=== PATIENT | female | born 1940 | race Caucasian/White ===

== ENCOUNTER 2017-06-10 10:44 | Inpatient (IN) ==
[2017-06-10] MEDS ORDERED: ALBUTEROL/IPRATROPIUM 3 ML NEB RESP TX PRN (11:25)
[2017-06-10] MEDS: ALBUTEROL/IPRATROPIUM 3 ML NEB RESP TX SCH ×2 (13:58→20:52)
[2017-06-10] MEDS: DEXTROSE 5% NACL 0.45% 1,000 ML IV SCH (14:30)
[2017-06-10] MEDS: SODIUM CHLORIDE 0.9% 1,000 ML IV SCH ×3 (14:56→23:00)
[2017-06-10] MEDS ORDERED: LEVOFLOXACIN INJ 500 MG in PREMIX 1 EACH IV SCH (15:00)
[2017-06-10 15:32] LABS: Albumin 3.2 G/DL (3.4-5.0); Bilirubin,Total 1.4 MG/DL (0.2-1.0); Calcium 9.1 MG/DL (8.5-10.1); Osmolality,Calculated 285.5 MOS/KG (273-304); Potassium 4.6 MMOL/L (3.5-5.1); Total Protein 5.4 G/DL (6.4-8.3)
[2017-06-10] MEDS: CLINDAMYCIN INJ 300 MG in PREMIX 1 EACH IV SCH ×2 (17:56→23:54)
[2017-06-10] MEDS: GABAPENTIN 400 MG CAPSULE PO SCH (21:43)
[2017-06-10] MEDS: MONTELUKAST 10 MG TABLET PO SCH (21:44)
[2017-06-10] MEDS: ACETAMINOPHEN 325 MG TABLET PO PRN (21:44)
[2017-06-10] MEDS: ALLOPURINOL 100 MG TABLET PO SCH (21:45)
[2017-06-10] MEDS: PANTOPRAZOLE 40 MG TABLET PO SCH (21:45)
[2017-06-10] MEDS: HYDROXYCHLOROQUINE 200 MG TABLET PO SCH (21:45)
[2017-06-11] MEDS: ALBUTEROL/IPRATROPIUM 3 ML NEB RESP TX SCH ×4 (01:27→20:49)
[2017-06-11] MEDS: DEXTROSE 5% NACL 0.45% 1,000 ML IV SCH ×2 (06:25→20:47)
[2017-06-11] MEDS: SODIUM CHLORIDE 0.9% 1,000 ML IV SCH ×4 (06:26→19:24)
[2017-06-11 06:51] LABS: Basophils # 0.1 10*3/uL (0.0-0.2); Basophils % 0.2 % (0.0-0.8); Eosinophils # 0.1 10*3/uL (0.0-0.87); Eosinophils % 0.5 % (0.00-10.9); Hematocrit 31.5 VOL% (35.7-47.0); Hemoglobin 10.2 GM/DL (12.0-16.0); Immature Granulocytes Absolute 0.55 #; Lymphocytes % 7.3 % (21.3-54.2); Mean Corpuscular HGB Conc 32.4 GM/DL (32-36); Mean Corpuscular Hemoglobin 30 PG (27-34); Mean Corpuscular Volume 93.8 FL (87-102); Mean Platelet Volume 10.1 FL (9.6-12.0); Monocytes # 1.8 10*3/uL (0.11-0.8); Monocytes % 6.6 % (1.7-12.7); Neutrophils # 22.9 10*3/uL (1.4-7.4); Neutrophils % 83.4 % (38.7-73.9); Platelet Count 184 T/CUMM (130-400); Red Blood Count 3.36 MC/CUMM (3.8-5.5); Red Cell Distribution Width 13.9 % (9.3-17.3); White Blood Count 27.5 T/CUMM (4-12)
[2017-06-11 07:21] LABS: Calcium 7.8 MG/DL (8.5-10.1); Magnesium 1.6 MG/DL (1.8-2.4)
[2017-06-11 08:39] LABS: Band Neutrophils 7 % (0-10); Hypochromasia Slight; Lymphocytes 8 % (20-55); Platelet Estimate Adequate; Segmented Neutrophils 80 % (50-85); Total Cells Counted 100
[2017-06-11] MEDS: MAGNESIUM CHLORIDE 64 MG TABLET PO SCH (08:48)
[2017-06-11] MEDS: GABAPENTIN 400 MG CAPSULE PO SCH ×2 (08:49→20:48)
[2017-06-11] MEDS: HYDROXYCHLOROQUINE 200 MG TABLET PO SCH ×2 (08:49→20:51)
[2017-06-11] MEDS: OXYBUTYNIN XL 10 MG TABLET PO SCH (08:49)
[2017-06-11] MEDS: hydroCHLOROthiazide 25 MG TABLET PO SCH (08:49)
[2017-06-11] MEDS: MELOXICAM 7.5 MG TABLET PO SCH (08:49)
[2017-06-11] MEDS: POTASSIUM CHLORIDE 10 MEQ TABLET PO SCH (08:49)
[2017-06-11] MEDS: MULTIVITAMIN (CENTRUM) TABLET PO SCH (08:49)
[2017-06-11] MEDS: ASPIRIN EC 81 MG TABLET PO SCH (08:49)
[2017-06-11] MEDS: CALCIUM (CARBONATE)/VITAMIN D 600 MG-400 UNIT TABLET PO SCH (08:49)
[2017-06-11] MEDS: ASCORBIC ACID 500 MG TABLET PO SCH (08:49)
[2017-06-11] MEDS: ALLOPURINOL 100 MG TABLET PO SCH ×2 (08:49→20:49)
[2017-06-11] MEDS: PANTOPRAZOLE 40 MG TABLET PO SCH ×2 (08:49→20:48)
[2017-06-11] MEDS: amLODIPine 5 MG TABLET PO SCH (08:49)
[2017-06-11] MEDS: CLINDAMYCIN INJ 300 MG in PREMIX 1 EACH IV SCH ×2 (08:53→17:03)
[2017-06-11] MEDS: GLUCOSAMINE 500 MG TABLET PO SCH (08:53)
[2017-06-11] MEDS ORDERED: NON-FORMULARY MEDICATION (Cyanocobalamin (Vitamin B-12) [B-12] 2,500 MCG) SL SCH (09:00)
[2017-06-11] MEDS: LEVOTHYROXINE 112 MCG TABLET PO SCH (17:03)
[2017-06-11] MEDS: LEVOFLOXACIN INJ 250 MG in PREMIX 1 EACH IV SCH (18:33)
[2017-06-11] MEDS: MONTELUKAST 10 MG TABLET PO SCH (20:48)
[2017-06-11] MEDS: ACETAMINOPHEN 325 MG TABLET PO PRN (21:56)
[2017-06-12] MEDS: CLINDAMYCIN INJ 300 MG in PREMIX 1 EACH IV SCH ×3 (00:46→17:01)
[2017-06-12] MEDS: SODIUM CHLORIDE 0.9% 1,000 ML IV SCH ×5 (01:17→17:33)
[2017-06-12] MEDS: ALBUTEROL/IPRATROPIUM 3 ML NEB RESP TX SCH ×4 (02:26→19:45)
[2017-06-12 05:08] LABS: Basophils % 0.1 % (0.0-0.8); Eosinophils # 0.2 10*3/uL (0.0-0.87); Eosinophils % 1.2 % (0.00-10.9); Hematocrit 30.5 VOL% (35.7-47.0); Hemoglobin 10.3 GM/DL (12.0-16.0); Immature Granulocytes % 0.7 %; Immature Granulocytes Absolute 0.13 #; Lymphocytes # 1.9 10*3/uL (1.4-4.0); Lymphocytes % 10.8 % (21.3-54.2); Mean Corpuscular HGB Conc 33.8 GM/DL (32-36); Mean Corpuscular Hemoglobin 31 PG (27-34); Mean Corpuscular Volume 91.6 FL (87-102); Mean Platelet Volume 10.5 FL (9.6-12.0); Monocytes # 1.4 10*3/uL (0.11-0.8); Monocytes % 7.6 % (1.7-12.7); Neutrophils # 14.1 10*3/uL (1.4-7.4); Neutrophils % 79.6 % (38.7-73.9); Platelet Count 160 T/CUMM (130-400); Red Blood Count 3.33 MC/CUMM (3.8-5.5); White Blood Count 17.7 T/CUMM (4-12)
[2017-06-12 05:35] LABS: Calcium 8.1 MG/DL (8.5-10.1); Magnesium 1.4 MG/DL (1.8-2.4); Osmolality,Calculated 266.7 MOS/KG (273-304)
[2017-06-12] MEDS: PANTOPRAZOLE 40 MG TABLET PO SCH ×2 (10:13→21:27)
[2017-06-12] MEDS: MAGNESIUM CHLORIDE 64 MG TABLET PO SCH ×2 (10:13→21:28)
[2017-06-12] MEDS: GLUCOSAMINE 500 MG TABLET PO SCH (10:13)
[2017-06-12] MEDS: ASPIRIN EC 81 MG TABLET PO SCH (10:13)
[2017-06-12] MEDS: hydroCHLOROthiazide 25 MG TABLET PO SCH (10:13)
[2017-06-12] MEDS: ALLOPURINOL 100 MG TABLET PO SCH ×2 (10:13→21:28)
[2017-06-12] MEDS: CALCIUM (CARBONATE)/VITAMIN D 600 MG-400 UNIT TABLET PO SCH (10:14)
[2017-06-12] MEDS: ASCORBIC ACID 500 MG TABLET PO SCH (10:14)
[2017-06-12] MEDS: OXYBUTYNIN XL 10 MG TABLET PO SCH (10:14)
[2017-06-12] MEDS: MELOXICAM 7.5 MG TABLET PO SCH (10:14)
[2017-06-12] MEDS: HYDROXYCHLOROQUINE 200 MG TABLET PO SCH ×2 (10:14→21:27)
[2017-06-12] MEDS: GABAPENTIN 400 MG CAPSULE PO SCH ×2 (10:14→21:27)
[2017-06-12] MEDS: MULTIVITAMIN (CENTRUM) TABLET PO SCH (10:14)
[2017-06-12] MEDS: POTASSIUM CHLORIDE 10 MEQ TABLET PO SCH (10:14)
[2017-06-12] MEDS: amLODIPine 5 MG TABLET PO SCH (10:15)
[2017-06-12] MEDS: CLOTRIMAZOLE 10 MG TROCHE PO SCH ×3 (13:07→21:31)
[2017-06-12] MEDS: FLUCONAZOLE 200 MG TABLET PO SCH (13:07)
[2017-06-12] MEDS: LEVOTHYROXINE 112 MCG TABLET PO SCH (17:02)
[2017-06-12] MEDS: DEXTROSE 5% NACL 0.45% 1,000 ML IV SCH (17:33)
[2017-06-12] MEDS: LEVOFLOXACIN INJ 250 MG in PREMIX 1 EACH IV SCH (18:18)
[2017-06-12] MEDS: DOCUSATE SODIUM 100 MG CAPSULE PO PRN (21:27)
[2017-06-12] MEDS: MONTELUKAST 10 MG TABLET PO SCH (21:28)
[2017-06-13] MEDS: CLINDAMYCIN INJ 300 MG in PREMIX 1 EACH IV SCH ×4 (00:12→23:56)
[2017-06-13] MEDS: ALBUTEROL/IPRATROPIUM 3 ML NEB RESP TX SCH ×3 (00:49→14:24)
[2017-06-13] MEDS: CLOTRIMAZOLE 10 MG TROCHE PO SCH ×5 (05:23→21:36)
[2017-06-13] MEDS: CALCIUM (CARBONATE)/VITAMIN D 600 MG-400 UNIT TABLET PO SCH (10:18)
[2017-06-13] MEDS: POTASSIUM CHLORIDE 10 MEQ TABLET PO SCH (10:18)
[2017-06-13] MEDS: MELOXICAM 7.5 MG TABLET PO SCH (10:18)
[2017-06-13] MEDS: MAGNESIUM CHLORIDE 64 MG TABLET PO SCH ×2 (10:18→21:37)
[2017-06-13] MEDS: GABAPENTIN 400 MG CAPSULE PO SCH ×2 (10:19→21:38)
[2017-06-13] MEDS: ASCORBIC ACID 500 MG TABLET PO SCH (10:19)
[2017-06-13] MEDS: HYDROXYCHLOROQUINE 200 MG TABLET PO SCH ×2 (10:19→21:36)
[2017-06-13] MEDS: MULTIVITAMIN (CENTRUM) TABLET PO SCH (10:19)
[2017-06-13] MEDS: ASPIRIN EC 81 MG TABLET PO SCH (10:19)
[2017-06-13] MEDS: hydroCHLOROthiazide 25 MG TABLET PO SCH (10:19)
[2017-06-13] MEDS: OXYBUTYNIN XL 10 MG TABLET PO SCH (10:19)
[2017-06-13] MEDS: PANTOPRAZOLE 40 MG TABLET PO SCH ×2 (10:19→21:37)
[2017-06-13] MEDS: DOCUSATE SODIUM 100 MG CAPSULE PO PRN ×2 (10:20→21:39)
[2017-06-13] MEDS: ALLOPURINOL 100 MG TABLET PO SCH ×2 (10:20→21:37)
[2017-06-13] MEDS: FLUCONAZOLE 200 MG TABLET PO SCH (10:20)
[2017-06-13] MEDS: GLUCOSAMINE 500 MG TABLET PO SCH (10:20)
[2017-06-13] MEDS: amLODIPine 5 MG TABLET PO SCH (10:21)
[2017-06-13] MEDS: CLORAZEPATE 3.75 MG TABLET PO SCH ×2 (15:31→21:36)
[2017-06-13] MEDS: DILTIAZEM 90 MG TABLET PO SCH ×2 (15:32→23:55)
[2017-06-13] MEDS: LEVOTHYROXINE 112 MCG TABLET PO SCH (15:32)
[2017-06-13] MEDS ORDERED: IPRATROPIUM 500 MCG/2.5 ML NEB RESP TX PRN (15:40)
[2017-06-13] MEDS ORDERED: ENOXAPARIN 40 MG/0.4 ML SYRINGE SUBCUT SCH (16:00)
[2017-06-13] MEDS: LEVOFLOXACIN INJ 250 MG in PREMIX 1 EACH IV SCH (18:27)
[2017-06-13] MEDS ORDERED: IPRATROPIUM 500 MCG/2.5 ML NEB RESP TX SCH (19:00)
[2017-06-13] MEDS: DORNASE ALFA 2.5 MG/2.5 ML VIAL RESP TX SCH (19:17)
[2017-06-13] MEDS: MONTELUKAST 10 MG TABLET PO SCH (21:37)
[2017-06-13] MEDS ORDERED: MAGNESIUM SULF RIDER 2 GM in PREMIX 1 EACH IV ONE (22:28)
[2017-06-14 05:58] LABS: Basophils % 0.5 % (0.0-0.8); Eosinophils # 0.4 10*3/uL (0.0-0.87); Eosinophils % 4.1 % (0.00-10.9); Hemoglobin 10.7 GM/DL (12.0-16.0); Immature Granulocytes % 0.6 %; Immature Granulocytes Absolute 0.05 #; Lymphocytes # 1.9 10*3/uL (1.4-4.0); Lymphocytes % 21.7 % (21.3-54.2); Mean Corpuscular HGB Conc 33.4 GM/DL (32-36); Mean Corpuscular Hemoglobin 30 PG (27-34); Mean Corpuscular Volume 90.4 FL (87-102); Mean Platelet Volume 10.4 FL (9.6-12.0); Monocytes # 1.1 10*3/uL (0.11-0.8); Monocytes % 12.8 % (1.7-12.7); Neutrophils # 5.1 10*3/uL (1.4-7.4); Neutrophils % 60.3 % (38.7-73.9); Platelet Count 212 T/CUMM (130-400); Red Blood Count 3.54 MC/CUMM (3.8-5.5); Red Cell Distribution Width 13.2 % (9.3-17.3); White Blood Count 8.5 T/CUMM (4-12)
[2017-06-14] MEDS: CLOTRIMAZOLE 10 MG TROCHE PO SCH ×5 (06:07→22:25)
[2017-06-14 06:25] LABS: Calcium 8.4 MG/DL (8.5-10.1); Magnesium 1.9 MG/DL (1.8-2.4); Osmolality,Calculated 259.9 MOS/KG (273-304)
[2017-06-14] MEDS: ASCORBIC ACID 500 MG TABLET PO SCH ×2 (09:22→20:49)
[2017-06-14] MEDS: CLORAZEPATE 3.75 MG TABLET PO SCH ×3 (09:23→20:48)
[2017-06-14] MEDS: DOCUSATE SODIUM 100 MG CAPSULE PO PRN (09:23)
[2017-06-14] MEDS: OXYBUTYNIN XL 10 MG TABLET PO SCH (09:23)
[2017-06-14] MEDS: ALLOPURINOL 100 MG TABLET PO SCH ×2 (09:23→20:49)
[2017-06-14] MEDS: GLUCOSAMINE 500 MG TABLET PO SCH (09:23)
[2017-06-14] MEDS: ASPIRIN EC 81 MG TABLET PO SCH (09:23)
[2017-06-14] MEDS: CALCIUM (CARBONATE)/VITAMIN D 600 MG-400 UNIT TABLET PO SCH (09:23)
[2017-06-14] MEDS: MAGNESIUM CHLORIDE 64 MG TABLET PO SCH ×2 (09:23→20:48)
[2017-06-14] MEDS: HYDROXYCHLOROQUINE 200 MG TABLET PO SCH ×2 (09:24→20:48)
[2017-06-14] MEDS: DILTIAZEM 90 MG TABLET PO SCH ×3 (09:24→23:44)
[2017-06-14] MEDS: MELOXICAM 7.5 MG TABLET PO SCH (09:24)
[2017-06-14] MEDS: MULTIVITAMIN (CENTRUM) TABLET PO SCH (09:24)
[2017-06-14] MEDS: GABAPENTIN 400 MG CAPSULE PO SCH ×2 (09:24→20:48)
[2017-06-14] MEDS: CLINDAMYCIN INJ 300 MG in PREMIX 1 EACH IV SCH ×3 (09:25→23:44)
[2017-06-14] MEDS: FLUCONAZOLE 200 MG TABLET PO SCH (09:25)
[2017-06-14] MEDS: amLODIPine 5 MG TABLET PO SCH (09:25)
[2017-06-14] MEDS: POTASSIUM CHLORIDE 10 MEQ TABLET PO SCH (09:25)
[2017-06-14] MEDS: PANTOPRAZOLE 40 MG TABLET PO SCH ×2 (09:25→20:49)
[2017-06-14] MEDS: hydroCHLOROthiazide 25 MG TABLET PO SCH (09:25)
[2017-06-14] MEDS: APIXABAN 5 MG TABLET PO SCH ×2 (11:03→20:49)
[2017-06-14] MEDS: DORNASE ALFA 2.5 MG/2.5 ML VIAL RESP TX SCH ×2 (12:24→19:50)
[2017-06-14] MEDS: LEVOTHYROXINE 112 MCG TABLET PO SCH (16:42)
[2017-06-14] MEDS: LEVOFLOXACIN INJ 250 MG in PREMIX 1 EACH IV SCH (17:56)
[2017-06-14] MEDS: MONTELUKAST 10 MG TABLET PO SCH (20:48)
[2017-06-15] MEDS: CLOTRIMAZOLE 10 MG TROCHE PO SCH ×5 (06:27→21:16)
[2017-06-15 06:51] LABS: Basophils % 0.4 % (0.0-0.8); Eosinophils # 0.3 10*3/uL (0.0-0.87); Eosinophils % 4.3 % (0.00-10.9); Hematocrit 31.9 VOL% (35.7-47.0); Hemoglobin 10.9 GM/DL (12.0-16.0); Immature Granulocytes % 0.6 %; Immature Granulocytes Absolute 0.04 #; Lymphocytes # 1.9 10*3/uL (1.4-4.0); Lymphocytes % 26.8 % (21.3-54.2); Mean Corpuscular HGB Conc 34.2 GM/DL (32-36); Mean Corpuscular Hemoglobin 30 PG (27-34); Mean Corpuscular Volume 87.9 FL (87-102); Mean Platelet Volume 9.9 FL (9.6-12.0); Monocytes % 13.4 % (1.7-12.7); Neutrophils # 3.9 10*3/uL (1.4-7.4); Neutrophils % 54.5 % (38.7-73.9); Platelet Count 216 T/CUMM (130-400); Red Blood Count 3.63 MC/CUMM (3.8-5.5); Red Cell Distribution Width 13.2 % (9.3-17.3); White Blood Count 7.2 T/CUMM (4-12)
[2017-06-15 07:27] LABS: Calcium 8.9 MG/DL (8.5-10.1); Magnesium 1.4 MG/DL (1.8-2.4); Osmolality,Calculated 253.6 MOS/KG (273-304); Potassium 5.1 MMOL/L (3.5-5.1)
[2017-06-15] MEDS: DORNASE ALFA 2.5 MG/2.5 ML VIAL RESP TX SCH ×2 (08:21→19:30)
[2017-06-15] MEDS: ALLOPURINOL 100 MG TABLET PO SCH ×2 (08:45→21:11)
[2017-06-15] MEDS: GABAPENTIN 400 MG CAPSULE PO SCH ×2 (08:45→21:11)
[2017-06-15] MEDS: CALCIUM (CARBONATE)/VITAMIN D 600 MG-400 UNIT TABLET PO SCH (08:45)
[2017-06-15] MEDS: CLORAZEPATE 3.75 MG TABLET PO SCH (08:45)
[2017-06-15] MEDS: MELOXICAM 7.5 MG TABLET PO SCH (08:45)
[2017-06-15] MEDS: hydroCHLOROthiazide 25 MG TABLET PO SCH (08:45)
[2017-06-15] MEDS: OXYBUTYNIN XL 10 MG TABLET PO SCH (08:45)
[2017-06-15] MEDS: MAGNESIUM CHLORIDE 64 MG TABLET PO SCH ×2 (08:45→21:11)
[2017-06-15] MEDS: MULTIVITAMIN (CENTRUM) TABLET PO SCH (08:46)
[2017-06-15] MEDS: GLUCOSAMINE 500 MG TABLET PO SCH (08:46)
[2017-06-15] MEDS: DILTIAZEM CD 180 MG CAPSULE PO SCH (08:46)
[2017-06-15] MEDS: PANTOPRAZOLE 40 MG TABLET PO SCH ×2 (08:46→21:11)
[2017-06-15] MEDS: HYDROXYCHLOROQUINE 200 MG TABLET PO SCH ×2 (08:46→21:10)
[2017-06-15] MEDS: APIXABAN 5 MG TABLET PO SCH ×2 (08:46→21:11)
[2017-06-15] MEDS: ASPIRIN EC 81 MG TABLET PO SCH (08:46)
[2017-06-15] MEDS: POTASSIUM CHLORIDE 10 MEQ TABLET PO SCH (08:46)
[2017-06-15] MEDS: FLUCONAZOLE 200 MG TABLET PO SCH (08:46)
[2017-06-15] MEDS: amLODIPine 5 MG TABLET PO SCH (08:46)
[2017-06-15] MEDS: ASCORBIC ACID 500 MG TABLET PO SCH ×2 (08:47→21:10)
[2017-06-15] MEDS: CLINDAMYCIN INJ 300 MG in PREMIX 1 EACH IV SCH ×2 (08:50→17:35)
[2017-06-15] MEDS ORDERED: DILTIAZEM CD 120 MG CAPSULE PO SCH (09:00)
[2017-06-15] MEDS ORDERED: CLORAZEPATE 3.75 MG TABLET PO PRN (13:58)
[2017-06-15] MEDS: LEVOTHYROXINE 112 MCG TABLET PO SCH (17:35)
[2017-06-15] MEDS: LEVOFLOXACIN INJ 250 MG in PREMIX 1 EACH IV SCH (17:36)
[2017-06-15] MEDS: MONTELUKAST 10 MG TABLET PO SCH (21:10)
[2017-06-16] MEDS: CLINDAMYCIN INJ 300 MG in PREMIX 1 EACH IV SCH ×3 (00:26→15:51)
[2017-06-16] MEDS ORDERED: COSYNTROPIN 0.25 MG VIAL IM ONE (04:00)
[2017-06-16] MEDS: CLOTRIMAZOLE 10 MG TROCHE PO SCH ×5 (06:01→22:19)
[2017-06-16] MEDS: DILTIAZEM CD 180 MG CAPSULE PO SCH ×2 (06:03→09:25)
[2017-06-16] MEDS: DORNASE ALFA 2.5 MG/2.5 ML VIAL RESP TX SCH ×2 (07:21→20:01)
[2017-06-16 08:25] LABS: Basophils # 0.1 10*3/uL (0.0-0.2); Basophils % 0.7 % (0.0-0.8); Eosinophils # 0.3 10*3/uL (0.0-0.87); Hematocrit 39.7 VOL% (35.7-47.0); Immature Granulocytes % 0.7 %; Immature Granulocytes Absolute 0.05 #; Lymphocytes # 1.7 10*3/uL (1.4-4.0); Lymphocytes % 25.5 % (21.3-54.2); Mean Corpuscular Hemoglobin 31 PG (27-34); Mean Corpuscular Volume 89.6 FL (87-102); Mean Platelet Volume 10.1 FL (9.6-12.0); Monocytes # 0.7 10*3/uL (0.11-0.8); Monocytes % 9.6 % (1.7-12.7); Neutrophils % 58.5 % (38.7-73.9); Red Cell Distribution Width 12.9 % (9.3-17.3); White Blood Count 6.8 T/CUMM (4-12)
[2017-06-16] MEDS: MAGNESIUM SULF RIDER 2 GM in PREMIX 1 EACH IV PRN (08:29)
[2017-06-16 08:36] LABS: Red Blood Count 4.43 MC/CUMM (3.8-5.5)
[2017-06-16 08:37] LABS: Hemoglobin 13.5 GM/DL (12.0-16.0); Platelet Count 279 T/CUMM (130-400)
[2017-06-16 09:04] LABS: Magnesium 1.3 MG/DL (1.8-2.4); Osmolality,Calculated 253.5 MOS/KG (273-304)
[2017-06-16] MEDS: GLUCOSAMINE 500 MG TABLET PO SCH (09:24)
[2017-06-16] MEDS: MULTIVITAMIN (CENTRUM) TABLET PO SCH (09:24)
[2017-06-16] MEDS: amLODIPine 5 MG TABLET PO SCH (09:24)
[2017-06-16] MEDS: CALCIUM (CARBONATE)/VITAMIN D 600 MG-400 UNIT TABLET PO SCH (09:24)
[2017-06-16] MEDS: FLUCONAZOLE 200 MG TABLET PO SCH (09:25)
[2017-06-16] MEDS: ASCORBIC ACID 500 MG TABLET PO SCH ×2 (09:25→20:44)
[2017-06-16] MEDS: ALLOPURINOL 100 MG TABLET PO SCH ×2 (09:25→20:44)
[2017-06-16] MEDS: GABAPENTIN 400 MG CAPSULE PO SCH ×2 (09:25→20:43)
[2017-06-16] MEDS: MELOXICAM 7.5 MG TABLET PO SCH (09:26)
[2017-06-16] MEDS: HYDROXYCHLOROQUINE 200 MG TABLET PO SCH ×2 (09:26→20:42)
[2017-06-16] MEDS: MAGNESIUM CHLORIDE 64 MG TABLET PO SCH ×2 (09:26→20:41)
[2017-06-16] MEDS: PANTOPRAZOLE 40 MG TABLET PO SCH ×2 (09:26→20:44)
[2017-06-16] MEDS: ASPIRIN EC 81 MG TABLET PO SCH (09:27)
[2017-06-16] MEDS: OXYBUTYNIN XL 10 MG TABLET PO SCH (09:27)
[2017-06-16] MEDS: APIXABAN 5 MG TABLET PO SCH ×2 (09:27→20:44)
[2017-06-16] MEDS: hydroCHLOROthiazide 25 MG TABLET PO SCH (09:28)
[2017-06-16] MEDS: POTASSIUM CHLORIDE 10 MEQ TABLET PO SCH (09:30)
[2017-06-16] MEDS: LEVOTHYROXINE 112 MCG TABLET PO SCH (15:50)
[2017-06-16] MEDS: LEVOFLOXACIN INJ 250 MG in PREMIX 1 EACH IV SCH (17:32)
[2017-06-16] MEDS: MONTELUKAST 10 MG TABLET PO SCH (20:41)
[2017-06-16] MEDS: DILTIAZEM CD 120 MG CAPSULE PO SCH (20:42)
[2017-06-17] MEDS: CLINDAMYCIN INJ 300 MG in PREMIX 1 EACH IV SCH ×3 (00:25→16:54)
[2017-06-17 05:31] LABS: Basophils % 0.5 % (0.0-0.8); Eosinophils # 0.3 10*3/uL (0.0-0.87); Hematocrit 33.3 VOL% (35.7-47.0); Hemoglobin 11.6 GM/DL (12.0-16.0); Immature Granulocytes % 0.5 %; Immature Granulocytes Absolute 0.03 #; Lymphocytes # 1.9 10*3/uL (1.4-4.0); Lymphocytes % 30.3 % (21.3-54.2); Mean Corpuscular HGB Conc 34.8 GM/DL (32-36); Mean Corpuscular Hemoglobin 30 PG (27-34); Mean Corpuscular Volume 87.4 FL (87-102); Mean Platelet Volume 9.7 FL (9.6-12.0); Monocytes # 0.8 10*3/uL (0.11-0.8); Monocytes % 12.9 % (1.7-12.7); Neutrophils # 3.2 10*3/uL (1.4-7.4); Neutrophils % 50.8 % (38.7-73.9); Platelet Count 294 T/CUMM (130-400); Red Blood Count 3.81 MC/CUMM (3.8-5.5); White Blood Count 6.4 T/CUMM (4-12)
[2017-06-17 05:51] LABS: Calcium 8.2 MG/DL (8.5-10.1); Magnesium 1.6 MG/DL (1.8-2.4); Osmolality,Calculated 260.1 MOS/KG (273-304); Potassium 4.6 MMOL/L (3.5-5.1)
[2017-06-17] MEDS: CLOTRIMAZOLE 10 MG TROCHE PO SCH (06:29)
[2017-06-17] MEDS: DORNASE ALFA 2.5 MG/2.5 ML VIAL RESP TX SCH ×2 (07:18→19:17)
[2017-06-17] MEDS: DILTIAZEM CD 120 MG CAPSULE PO SCH ×3 (07:41→20:50)
[2017-06-17] MEDS: PANTOPRAZOLE 40 MG TABLET PO SCH ×3 (07:41→20:50)
[2017-06-17] MEDS: GABAPENTIN 400 MG CAPSULE PO SCH ×2 (09:35→20:50)
[2017-06-17] MEDS: GLUCOSAMINE 500 MG TABLET PO SCH (09:36)
[2017-06-17] MEDS: MULTIVITAMIN (CENTRUM) TABLET PO SCH (09:36)
[2017-06-17] MEDS: MELOXICAM 7.5 MG TABLET PO SCH (09:36)
[2017-06-17] MEDS: APIXABAN 5 MG TABLET PO SCH ×2 (09:36→20:50)
[2017-06-17] MEDS: OXYBUTYNIN XL 10 MG TABLET PO SCH (09:37)
[2017-06-17] MEDS: HYDROXYCHLOROQUINE 200 MG TABLET PO SCH ×2 (09:37→20:49)
[2017-06-17] MEDS: ASCORBIC ACID 500 MG TABLET PO SCH ×2 (09:37→20:49)
[2017-06-17] MEDS: MAGNESIUM CHLORIDE 64 MG TABLET PO SCH ×2 (09:37→22:50)
[2017-06-17] MEDS: CALCIUM (CARBONATE)/VITAMIN D 600 MG-400 UNIT TABLET PO SCH (09:38)
[2017-06-17] MEDS: ASPIRIN EC 81 MG TABLET PO SCH (09:38)
[2017-06-17] MEDS: POTASSIUM CHLORIDE 10 MEQ TABLET PO SCH (09:39)
[2017-06-17] MEDS: amLODIPine 5 MG TABLET PO SCH (09:39)
[2017-06-17] MEDS: ALLOPURINOL 100 MG TABLET PO SCH ×2 (09:39→20:50)
[2017-06-17] MEDS: hydroCHLOROthiazide 25 MG TABLET PO SCH (09:40)
[2017-06-17] MEDS: FLUCONAZOLE 200 MG TABLET PO SCH (09:40)
[2017-06-17] MEDS: MAGNESIUM SULF RIDER 2 GM in PREMIX 1 EACH IV PRN (10:00)
[2017-06-17] MEDS ORDERED: ONDANSETRON 4 MG/2 ML VIAL ONE (12:30)
[2017-06-17] MEDS: ONDANSETRON 4 MG/2 ML VIAL IV PRN (12:36)
[2017-06-17] MEDS: LEVOTHYROXINE 112 MCG TABLET PO SCH (16:54)
[2017-06-17] MEDS: LEVOFLOXACIN INJ 250 MG in PREMIX 1 EACH IV SCH (17:38)
[2017-06-17] MEDS: MONTELUKAST 10 MG TABLET PO SCH (20:50)
[2017-06-18] MEDS: CLINDAMYCIN INJ 300 MG in PREMIX 1 EACH IV SCH ×3 (01:15→15:20)
[2017-06-18 05:26] LABS: Basophils % 0.2 % (0.0-0.8); Eosinophils # 0.2 10*3/uL (0.0-0.87); Eosinophils % 2.8 % (0.00-10.9); Hematocrit 31.4 VOL% (35.7-47.0); Hemoglobin 10.9 GM/DL (12.0-16.0); Immature Granulocytes % 0.5 %; Immature Granulocytes Absolute 0.04 #; Mean Corpuscular HGB Conc 34.7 GM/DL (32-36); Mean Corpuscular Hemoglobin 31 PG (27-34); Mean Platelet Volume 9.5 FL (9.6-12.0); Monocytes # 0.9 10*3/uL (0.11-0.8); Neutrophils % 61.5 % (38.7-73.9); Platelet Count 294 T/CUMM (130-400); Red Blood Count 3.53 MC/CUMM (3.8-5.5); Red Cell Distribution Width 13.2 % (9.3-17.3); White Blood Count 8.1 T/CUMM (4-12)
[2017-06-18 05:57] LABS: Calcium 7.9 MG/DL (8.5-10.1); Magnesium 2.1 MG/DL (1.8-2.4); Osmolality,Calculated 263.1 MOS/KG (273-304); Potassium 5.3 MMOL/L (3.5-5.1)
[2017-06-18] MEDS: DORNASE ALFA 2.5 MG/2.5 ML VIAL RESP TX SCH ×2 (07:41→19:16)
[2017-06-18] MEDS: GLUCOSAMINE 500 MG TABLET PO SCH (08:41)
[2017-06-18] MEDS: PANTOPRAZOLE 40 MG TABLET PO SCH ×2 (08:41→21:10)
[2017-06-18] MEDS: MELOXICAM 7.5 MG TABLET PO SCH (08:41)
[2017-06-18] MEDS: MAGNESIUM CHLORIDE 64 MG TABLET PO SCH (08:41)
[2017-06-18] MEDS: OXYBUTYNIN XL 10 MG TABLET PO SCH (08:41)
[2017-06-18] MEDS: GABAPENTIN 400 MG CAPSULE PO SCH ×2 (08:41→21:08)
[2017-06-18] MEDS: HYDROXYCHLOROQUINE 200 MG TABLET PO SCH ×2 (08:41→21:10)
[2017-06-18] MEDS: ALLOPURINOL 100 MG TABLET PO SCH ×2 (08:41→21:10)
[2017-06-18] MEDS: MULTIVITAMIN (CENTRUM) TABLET PO SCH (08:41)
[2017-06-18] MEDS: DILTIAZEM CD 120 MG CAPSULE PO SCH ×2 (08:41→21:09)
[2017-06-18] MEDS: CALCIUM (CARBONATE)/VITAMIN D 600 MG-400 UNIT TABLET PO SCH (08:41)
[2017-06-18] MEDS: POTASSIUM CHLORIDE 10 MEQ TABLET PO SCH (08:42)
[2017-06-18] MEDS: FLUCONAZOLE 200 MG TABLET PO SCH (08:42)
[2017-06-18] MEDS: hydroCHLOROthiazide 25 MG TABLET PO SCH (08:42)
[2017-06-18] MEDS: APIXABAN 5 MG TABLET PO SCH ×2 (08:42→21:10)
[2017-06-18] MEDS: amLODIPine 5 MG TABLET PO SCH (08:42)
[2017-06-18] MEDS: ASPIRIN EC 81 MG TABLET PO SCH (08:42)
[2017-06-18] MEDS: ASCORBIC ACID 500 MG TABLET PO SCH ×2 (08:42→21:10)
[2017-06-18] MEDS: ONDANSETRON 4 MG/2 ML VIAL IV PRN (14:25)
[2017-06-18] MEDS ORDERED: SODIUM PHOSPHATE ENEMA 133 ML BOTTLE RECTAL PRN (14:51)
[2017-06-18] MEDS ORDERED: LACTULOSE 20 GM/30 ML UDCUP PO PRN (17:19)
[2017-06-18] MEDS: LEVOFLOXACIN INJ 250 MG in PREMIX 1 EACH IV SCH (17:36)
[2017-06-18] MEDS: MONTELUKAST 10 MG TABLET PO SCH (21:09)
[2017-06-18] MEDS: MAGNESIUM OXIDE 400 MG TABLET PO SCH (21:13)
[2017-06-18] MEDS: LEVOTHYROXINE 112 MCG TABLET PO SCH (21:13)
[2017-06-18] MEDS ORDERED: BISACODYL 10 MG SUPP RECTAL PRN (23:13)
[2017-06-18] MEDS ORDERED: DEXTROSE 5% NACL 0.45% 1,000 ML IV SCH (23:30)
[2017-06-19] MEDS: CLINDAMYCIN INJ 300 MG in PREMIX 1 EACH IV SCH ×4 (00:15→23:38)
[2017-06-19] MEDS ORDERED: ONDANSETRON 4 MG/2 ML VIAL IV PRN (00:27)
[2017-06-19] MEDS: PROMETHAZINE 25 MG/1 ML VIAL IM PRN ×2 (01:44→08:18)
[2017-06-19] MEDS: DORNASE ALFA 2.5 MG/2.5 ML VIAL RESP TX SCH ×2 (07:43→19:46)
[2017-06-19] MEDS ORDERED: SODIUM PHOSPHATE ENEMA 133 ML BOTTLE RECTAL PRN (08:30)
[2017-06-19] MEDS: MULTIVITAMIN (CENTRUM) TABLET PO SCH (09:45)
[2017-06-19] MEDS: ASPIRIN EC 81 MG TABLET PO SCH (09:45)
[2017-06-19] MEDS: CALCIUM (CARBONATE)/VITAMIN D 600 MG-400 UNIT TABLET PO SCH (09:45)
[2017-06-19] MEDS: FLUCONAZOLE 200 MG TABLET PO SCH (09:45)
[2017-06-19] MEDS: OXYBUTYNIN XL 10 MG TABLET PO SCH (09:46)
[2017-06-19] MEDS: ASCORBIC ACID 500 MG TABLET PO SCH ×2 (09:46→20:43)
[2017-06-19] MEDS: HYDROXYCHLOROQUINE 200 MG TABLET PO SCH ×2 (09:46→20:42)
[2017-06-19] MEDS: POTASSIUM CHLORIDE 10 MEQ TABLET PO SCH (09:46)
[2017-06-19] MEDS: MAGNESIUM OXIDE 400 MG TABLET PO SCH ×2 (09:46→20:41)
[2017-06-19] MEDS: MELOXICAM 7.5 MG TABLET PO SCH (09:46)
[2017-06-19] MEDS: amLODIPine 5 MG TABLET PO SCH (09:46)
[2017-06-19] MEDS: PANTOPRAZOLE 40 MG TABLET PO SCH ×2 (09:46→20:44)
[2017-06-19] MEDS: GABAPENTIN 400 MG CAPSULE PO SCH ×2 (09:46→20:41)
[2017-06-19] MEDS: ALLOPURINOL 100 MG TABLET PO SCH ×2 (09:46→20:42)
[2017-06-19] MEDS: hydroCHLOROthiazide 12.5 MG CAPSULE PO SCH (09:46)
[2017-06-19] MEDS: GLUCOSAMINE 500 MG TABLET PO SCH (09:46)
[2017-06-19 13:02] LABS: Basophils % 0.2 % (0.0-0.8)
[2017-06-19 13:15] LABS: Hematocrit 39.4 VOL% (35.7-47.0); Immature Granulocytes % 0.8 %; Immature Granulocytes Absolute 0.17 #; Lymphocytes # 1.2 10*3/uL (1.4-4.0); Lymphocytes % 5.9 % (21.3-54.2); Mean Corpuscular Hemoglobin 30 PG (27-34); Mean Corpuscular Volume 89.3 FL (87-102); Mean Platelet Volume 9.4 FL (9.6-12.0); Monocytes # 1.3 10*3/uL (0.11-0.8); Monocytes % 6.3 % (1.7-12.7); Neutrophils # 17.6 10*3/uL (1.4-7.4); Neutrophils % 86.8 % (38.7-73.9); Red Blood Count 4.41 MC/CUMM (3.8-5.5); White Blood Count 20.3 T/CUMM (4-12)
[2017-06-19 13:16] LABS: Hemoglobin 13.4 GM/DL (12.0-16.0); Platelet Count 404 T/CUMM (130-400)
[2017-06-19 13:33] LABS: Albumin 2.6 G/DL (3.4-5.0); Bilirubin,Total 0.5 MG/DL (0.2-1.0); Calcium 8.3 MG/DL (8.5-10.1); Osmolality,Calculated 265.4 MOS/KG (273-304); Total Protein 5.3 G/DL (6.4-8.3)
[2017-06-19 13:36] LABS: Potassium 6.1 MMOL/L (3.5-5.1)
[2017-06-19] MEDS: DEXTROSE 5% NACL 0.9% 1,000 ML IV SCH (14:05)
[2017-06-19] MEDS: LEVOFLOXACIN INJ 250 MG in PREMIX 1 EACH IV SCH (17:47)
[2017-06-19 18:53] LABS: Lymphocytes 5 % (20-55); Platelet Estimate Normal; Segmented Neutrophils 90 % (50-85); Total Cells Counted 100
[2017-06-19] MEDS: MONTELUKAST 10 MG TABLET PO SCH (20:42)
[2017-06-19] MEDS: LEVOTHYROXINE 112 MCG TABLET PO SCH (20:43)
[2017-06-20] MEDS ORDERED: METOPROLOL TARTRATE 50 MG TABLET PO ONE (00:33)
[2017-06-20] MEDS: DEXTROSE 5% NACL 0.9% 1,000 ML IV SCH ×3 (00:58→21:33)
[2017-06-20] MEDS ORDERED: METOPROLOL TARTRATE 5 MG/5 ML VIAL IV ONE (01:00)
[2017-06-20] MEDS: DORNASE ALFA 2.5 MG/2.5 ML VIAL RESP TX SCH ×2 (07:49→20:40)
[2017-06-20 08:37] LABS: Basophils % 0.2 % (0.0-0.8); Hematocrit 35.6 VOL% (35.7-47.0); Hemoglobin 11.9 GM/DL (12.0-16.0); Immature Granulocytes % 0.7 %; Immature Granulocytes Absolute 0.13 #; Lymphocytes # 1.6 10*3/uL (1.4-4.0); Lymphocytes % 9.1 % (21.3-54.2); Mean Corpuscular HGB Conc 33.4 GM/DL (32-36); Mean Corpuscular Hemoglobin 31 PG (27-34); Mean Corpuscular Volume 91.8 FL (87-102); Monocytes # 1.3 10*3/uL (0.11-0.8); Monocytes % 7.3 % (1.7-12.7); Neutrophils # 14.8 10*3/uL (1.4-7.4); Neutrophils % 82.7 % (38.7-73.9); Platelet Count 341 T/CUMM (130-400); Red Blood Count 3.88 MC/CUMM (3.8-5.5); Red Cell Distribution Width 13.3 % (9.3-17.3); White Blood Count 17.9 T/CUMM (4-12)
[2017-06-20] MEDS ORDERED: METOPROLOL TARTRATE 50 MG TABLET PO SCH (09:00)
[2017-06-20] MEDS: MELOXICAM 7.5 MG TABLET PO SCH (09:22)
[2017-06-20] MEDS: ASPIRIN EC 81 MG TABLET PO SCH (09:22)
[2017-06-20] MEDS: CALCIUM (CARBONATE)/VITAMIN D 600 MG-400 UNIT TABLET PO SCH (09:22)
[2017-06-20] MEDS: MULTIVITAMIN (CENTRUM) TABLET PO SCH (09:22)
[2017-06-20] MEDS: FLUCONAZOLE 200 MG TABLET PO SCH (09:22)
[2017-06-20] MEDS: MAGNESIUM OXIDE 400 MG TABLET PO SCH (09:23)
[2017-06-20] MEDS: GABAPENTIN 400 MG CAPSULE PO SCH ×2 (09:23→21:35)
[2017-06-20] MEDS: GLUCOSAMINE 500 MG TABLET PO SCH (09:23)
[2017-06-20] MEDS: PANTOPRAZOLE 40 MG TABLET PO SCH ×2 (09:23→21:35)
[2017-06-20] MEDS: OXYBUTYNIN XL 10 MG TABLET PO SCH (09:23)
[2017-06-20] MEDS: HYDROXYCHLOROQUINE 200 MG TABLET PO SCH ×2 (09:23→21:35)
[2017-06-20] MEDS: ALLOPURINOL 100 MG TABLET PO SCH ×2 (09:24→21:35)
[2017-06-20] MEDS: ASCORBIC ACID 500 MG TABLET PO SCH ×2 (09:24→21:35)
[2017-06-20] MEDS: CLINDAMYCIN INJ 300 MG in PREMIX 1 EACH IV SCH ×2 (09:25→17:17)
[2017-06-20] MEDS: POTASSIUM CHLORIDE 10 MEQ TABLET PO SCH (09:25)
[2017-06-20] MEDS: hydroCHLOROthiazide 12.5 MG CAPSULE PO SCH (10:13)
[2017-06-20 17:17] LABS: Alanine Aminotransferase 19 U/L (13-56); Albumin 2.1 G/DL (3.4-5.0); Alkaline Phosphatase 77 U/L (45-117); Aspartate Amino Transferase 17 U/L (0-37); Bilirubin,Total < 0.39 MG/DL (0.2-1.0); Blood Urea Nitrogen 35 MG/DL (7-18); Calcium 7.2 MG/DL (8.5-10.1); Glucose 158 MG/DL (74-106); Osmolality,Calculated 272.7 MOS/KG (273-304); Potassium 4.5 MMOL/L (3.5-5.1); Sodium 131 MMOL/L (136-145); Total Protein 4.3 G/DL (6.4-8.3)
[2017-06-20] MEDS: LEVOFLOXACIN INJ 250 MG in PREMIX 1 EACH IV SCH (17:50)
[2017-06-20] MEDS: MONTELUKAST 10 MG TABLET PO SCH (21:34)
[2017-06-20] MEDS: METOPROLOL TARTRATE 50 MG TABLET PO SCH ×2 (21:34→22:11)
[2017-06-20] MEDS: LEVOTHYROXINE 112 MCG TABLET PO SCH (21:36)
[2017-06-21] MEDS: CLINDAMYCIN INJ 300 MG in PREMIX 1 EACH IV SCH ×4 (00:53→23:49)
[2017-06-21 06:37] LABS: Basophils % 0.2 % (0.0-0.8); Hematocrit 33.6 VOL% (35.7-47.0); Hemoglobin 10.9 GM/DL (12.0-16.0); Immature Granulocytes % 0.6 %; Immature Granulocytes Absolute 0.09 #; Lymphocytes # 2.3 10*3/uL (1.4-4.0); Lymphocytes % 14.3 % (21.3-54.2); Mean Corpuscular HGB Conc 32.4 GM/DL (32-36); Mean Corpuscular Hemoglobin 30 PG (27-34); Mean Corpuscular Volume 93.3 FL (87-102); Mean Platelet Volume 9.3 FL (9.6-12.0); Monocytes # 1.3 10*3/uL (0.11-0.8); Monocytes % 7.9 % (1.7-12.7); Neutrophils # 12.5 10*3/uL (1.4-7.4); Platelet Count 330 T/CUMM (130-400); Red Cell Distribution Width 13.4 % (9.3-17.3); White Blood Count 16.2 T/CUMM (4-12)
[2017-06-21] MEDS: DEXTROSE 5% NACL 0.9% 1,000 ML IV SCH ×2 (06:40→17:58)
[2017-06-21 07:15] LABS: Calcium 7.1 MG/DL (8.5-10.1); Osmolality,Calculated 270.5 MOS/KG (273-304); Potassium 4.7 MMOL/L (3.5-5.1)
[2017-06-21] MEDS: DORNASE ALFA 2.5 MG/2.5 ML VIAL RESP TX SCH ×2 (07:36→19:26)
[2017-06-21] MEDS ORDERED: LACTULOSE 20 GM/30 ML UDCUP PO ONE (10:50)
[2017-06-21] MEDS: OXYBUTYNIN XL 10 MG TABLET PO SCH (10:50)
[2017-06-21] MEDS: HYDROXYCHLOROQUINE 200 MG TABLET PO SCH ×2 (10:50→21:54)
[2017-06-21] MEDS: ASCORBIC ACID 500 MG TABLET PO SCH ×2 (10:51→21:58)
[2017-06-21] MEDS: MULTIVITAMIN (CENTRUM) TABLET PO SCH (10:51)
[2017-06-21] MEDS: ASPIRIN EC 81 MG TABLET PO SCH (10:51)
[2017-06-21] MEDS: ALLOPURINOL 100 MG TABLET PO SCH ×2 (10:51→21:54)
[2017-06-21] MEDS ORDERED: BISACODYL 10 MG SUPP RECTAL ONE (10:51)
[2017-06-21] MEDS: GLUCOSAMINE 500 MG TABLET PO SCH (10:51)
[2017-06-21] MEDS: CALCIUM (CARBONATE)/VITAMIN D 600 MG-400 UNIT TABLET PO SCH (10:51)
[2017-06-21] MEDS: hydroCHLOROthiazide 12.5 MG CAPSULE PO SCH (10:51)
[2017-06-21] MEDS: FLUCONAZOLE 200 MG TABLET PO SCH (10:51)
[2017-06-21] MEDS: PANTOPRAZOLE 40 MG TABLET PO SCH ×2 (10:52→21:55)
[2017-06-21] MEDS: GABAPENTIN 400 MG CAPSULE PO SCH ×2 (10:52→21:54)
[2017-06-21] MEDS: METOPROLOL TARTRATE 50 MG TABLET PO SCH ×3 (10:52→21:54)
[2017-06-21] MEDS: LEVOFLOXACIN INJ 250 MG in PREMIX 1 EACH IV SCH (18:06)
[2017-06-21] MEDS: LEVOTHYROXINE 112 MCG TABLET PO SCH (21:53)
[2017-06-21] MEDS: MONTELUKAST 10 MG TABLET PO SCH (21:55)
[2017-06-22] MEDS: DEXTROSE 5% NACL 0.9% 1,000 ML IV SCH ×2 (06:04→19:35)
[2017-06-22 07:24] LABS: Basophils # 0.1 10*3/uL (0.0-0.2); Basophils % 0.4 % (0.0-0.8); Hematocrit 30.6 VOL% (35.7-47.0); Hemoglobin 10.1 GM/DL (12.0-16.0); Immature Granulocytes % 0.2 %; Immature Granulocytes Absolute 0.02 #; Lymphocytes % 17.4 % (21.3-54.2); Mean Corpuscular Hemoglobin 30 PG (27-34); Mean Corpuscular Volume 90.5 FL (87-102); Mean Platelet Volume 9.3 FL (9.6-12.0); Monocytes # 1.2 10*3/uL (0.11-0.8); Monocytes % 10.2 % (1.7-12.7); Neutrophils # 8.2 10*3/uL (1.4-7.4); Neutrophils % 71.8 % (38.7-73.9); Platelet Count 287 T/CUMM (130-400); Red Blood Count 3.38 MC/CUMM (3.8-5.5); Red Cell Distribution Width 13.4 % (9.3-17.3); White Blood Count 11.4 T/CUMM (4-12)
[2017-06-22 07:45] LABS: Calcium 7.5 MG/DL (8.5-10.1); Magnesium 1.7 MG/DL (1.8-2.4); Osmolality,Calculated 270.2 MOS/KG (273-304)
[2017-06-22] MEDS: DORNASE ALFA 2.5 MG/2.5 ML VIAL RESP TX SCH ×2 (08:04→20:02)
[2017-06-22] MEDS: HYDROXYCHLOROQUINE 200 MG TABLET PO SCH ×2 (11:47→21:11)
[2017-06-22] MEDS: ASPIRIN EC 81 MG TABLET PO SCH (11:47)
[2017-06-22] MEDS: CLINDAMYCIN INJ 300 MG in PREMIX 1 EACH IV SCH ×2 (11:47→21:04)
[2017-06-22] MEDS: MULTIVITAMIN (CENTRUM) TABLET PO SCH (11:47)
[2017-06-22] MEDS: PANTOPRAZOLE 40 MG TABLET PO SCH ×2 (11:47→21:10)
[2017-06-22] MEDS: OXYBUTYNIN XL 10 MG TABLET PO SCH (11:48)
[2017-06-22] MEDS: CALCIUM (CARBONATE)/VITAMIN D 600 MG-400 UNIT TABLET PO SCH (11:48)
[2017-06-22] MEDS: METOPROLOL TARTRATE 50 MG TABLET PO SCH ×2 (11:48→21:11)
[2017-06-22] MEDS: ASCORBIC ACID 500 MG TABLET PO SCH ×2 (11:48→21:10)
[2017-06-22] MEDS: GLUCOSAMINE 500 MG TABLET PO SCH (11:48)
[2017-06-22] MEDS: ALLOPURINOL 100 MG TABLET PO SCH ×2 (11:48→21:11)
[2017-06-22] MEDS: FLUCONAZOLE 200 MG TABLET PO SCH (11:48)
[2017-06-22] MEDS: hydroCHLOROthiazide 12.5 MG CAPSULE PO SCH (11:49)
[2017-06-22] MEDS: GABAPENTIN 400 MG CAPSULE PO SCH ×2 (11:49→21:10)
[2017-06-22] MEDS: MAGNESIUM OXIDE 400 MG TABLET PO SCH (13:51)
[2017-06-22] MEDS: LEVOFLOXACIN INJ 250 MG in PREMIX 1 EACH IV SCH (17:36)
[2017-06-22] MEDS: LEVOTHYROXINE 112 MCG TABLET PO SCH (21:10)
[2017-06-22] MEDS: MONTELUKAST 10 MG TABLET PO SCH (21:11)
[2017-06-22] MEDS: POLYETHYLENE GLYCOL POWDER 17 GM PACK PO SCH (21:14)
[2017-06-23] MEDS: CLINDAMYCIN INJ 300 MG in PREMIX 1 EACH IV SCH (04:01)
[2017-06-23] MEDS: DEXTROSE 5% NACL 0.9% 1,000 ML IV SCH ×2 (06:08→20:57)
[2017-06-23 06:53] LABS: Basophils # 0.1 10*3/uL (0.0-0.2); Basophils % 0.7 % (0.0-0.8); Hematocrit 27.9 VOL% (35.7-47.0); Hemoglobin 9.3 GM/DL (12.0-16.0); Immature Granulocytes % 0.5 %; Immature Granulocytes Absolute 0.04 #; Lymphocytes # 2.2 10*3/uL (1.4-4.0); Lymphocytes % 25.8 % (21.3-54.2); Mean Corpuscular HGB Conc 33.3 GM/DL (32-36); Mean Corpuscular Hemoglobin 31 PG (27-34); Mean Corpuscular Volume 91.5 FL (87-102); Mean Platelet Volume 9.4 FL (9.6-12.0); Monocytes # 0.9 10*3/uL (0.11-0.8); Monocytes % 10.5 % (1.7-12.7); Neutrophils # 5.3 10*3/uL (1.4-7.4); Neutrophils % 62.5 % (38.7-73.9); Platelet Count 276 T/CUMM (130-400); Red Blood Count 3.05 MC/CUMM (3.8-5.5); Red Cell Distribution Width 13.6 % (9.3-17.3); White Blood Count 8.4 T/CUMM (4-12)
[2017-06-23 07:21] LABS: Calcium 7.4 MG/DL (8.5-10.1); Magnesium 1.4 MG/DL (1.8-2.4); Osmolality,Calculated 276.5 MOS/KG (273-304); Potassium 3.7 MMOL/L (3.5-5.1)
[2017-06-23] MEDS: DORNASE ALFA 2.5 MG/2.5 ML VIAL RESP TX SCH ×2 (08:00→19:37)
[2017-06-23] MEDS ORDERED: MAGNESIUM SULF RIDER 4 GM in PREMIX 1 EACH IV PRN (08:28)
[2017-06-23] MEDS: hydroCHLOROthiazide 12.5 MG CAPSULE PO SCH (09:11)
[2017-06-23] MEDS: ALLOPURINOL 100 MG TABLET PO SCH ×2 (09:11→20:57)
[2017-06-23] MEDS: ASPIRIN EC 81 MG TABLET PO SCH (09:11)
[2017-06-23] MEDS: HYDROXYCHLOROQUINE 200 MG TABLET PO SCH ×2 (09:11→20:55)
[2017-06-23] MEDS: GLUCOSAMINE 500 MG TABLET PO SCH (09:11)
[2017-06-23] MEDS: OXYBUTYNIN XL 10 MG TABLET PO SCH (09:11)
[2017-06-23] MEDS: METOPROLOL TARTRATE 50 MG TABLET PO SCH ×2 (09:11→20:57)
[2017-06-23] MEDS: MAGNESIUM OXIDE 400 MG TABLET PO SCH (09:11)
[2017-06-23] MEDS: MULTIVITAMIN (CENTRUM) TABLET PO SCH (09:11)
[2017-06-23] MEDS: GABAPENTIN 400 MG CAPSULE PO SCH ×2 (09:11→20:56)
[2017-06-23] MEDS: CALCIUM (CARBONATE)/VITAMIN D 600 MG-400 UNIT TABLET PO SCH (09:11)
[2017-06-23] MEDS: ASCORBIC ACID 500 MG TABLET PO SCH ×2 (09:12→20:55)
[2017-06-23] MEDS: MAGNESIUM SULF RIDER 2 GM in PREMIX 1 EACH IV PRN ×2 (09:12→11:12)
[2017-06-23] MEDS: PANTOPRAZOLE 40 MG TABLET PO SCH ×2 (09:12→20:56)
[2017-06-23] MEDS: FLUCONAZOLE 200 MG TABLET PO SCH (09:12)
[2017-06-23] MEDS: POLYETHYLENE GLYCOL POWDER 17 GM PACK PO SCH ×3 (09:21→20:58)
[2017-06-23] MEDS: MONTELUKAST 10 MG TABLET PO SCH (20:55)
[2017-06-23] MEDS: LEVOTHYROXINE 112 MCG TABLET PO SCH (20:55)
[2017-06-24] MEDS: DEXTROSE 5% NACL 0.9% 1,000 ML IV SCH ×2 (06:12→14:54)
[2017-06-24 06:56] LABS: Calcium 7.7 MG/DL (8.5-10.1); Magnesium 1.9 MG/DL (1.8-2.4); Osmolality,Calculated 277.4 MOS/KG (273-304); Potassium 3.8 MMOL/L (3.5-5.1)
[2017-06-24 07:46] LABS: Basophils # 0.1 10*3/uL (0.0-0.2); Basophils % 0.6 % (0.0-0.8); Eosinophils % 0.5 % (0.00-10.9); Hematocrit 28.3 VOL% (35.7-47.0); Hemoglobin 9.2 GM/DL (12.0-16.0); Immature Granulocytes % 1.3 %; Lymphocytes # 2.1 10*3/uL (1.4-4.0); Lymphocytes % 26.9 % (21.3-54.2); Mean Corpuscular HGB Conc 32.5 GM/DL (32-36); Mean Corpuscular Hemoglobin 30 PG (27-34); Mean Corpuscular Volume 92.8 FL (87-102); Mean Platelet Volume 9.2 FL (9.6-12.0); Monocytes # 0.9 10*3/uL (0.11-0.8); Monocytes % 10.9 % (1.7-12.7); Neutrophils # 4.7 10*3/uL (1.4-7.4); Neutrophils % 59.8 % (38.7-73.9); Platelet Count 326 T/CUMM (130-400); Red Blood Count 3.05 MC/CUMM (3.8-5.5); Red Cell Distribution Width 14.1 % (9.3-17.3); White Blood Count 7.9 T/CUMM (4-12)
[2017-06-24] MEDS: DORNASE ALFA 2.5 MG/2.5 ML VIAL RESP TX SCH ×2 (08:08→19:39)
[2017-06-24] MEDS: CALCIUM (CARBONATE)/VITAMIN D 600 MG-400 UNIT TABLET PO SCH (09:18)
[2017-06-24] MEDS: METOPROLOL TARTRATE 50 MG TABLET PO SCH ×2 (09:19→21:57)
[2017-06-24] MEDS: MAGNESIUM OXIDE 400 MG TABLET PO SCH ×2 (09:19→21:57)
[2017-06-24] MEDS: MULTIVITAMIN (CENTRUM) TABLET PO SCH (09:19)
[2017-06-24] MEDS: GLUCOSAMINE 500 MG TABLET PO SCH (09:19)
[2017-06-24] MEDS: OXYBUTYNIN XL 10 MG TABLET PO SCH (09:19)
[2017-06-24] MEDS: ALLOPURINOL 100 MG TABLET PO SCH ×2 (09:19→21:57)
[2017-06-24] MEDS: ASCORBIC ACID 500 MG TABLET PO SCH ×2 (09:19→21:56)
[2017-06-24] MEDS: hydroCHLOROthiazide 12.5 MG CAPSULE PO SCH (09:19)
[2017-06-24] MEDS: GABAPENTIN 400 MG CAPSULE PO SCH ×2 (09:19→21:56)
[2017-06-24] MEDS: HYDROXYCHLOROQUINE 200 MG TABLET PO SCH ×2 (09:19→21:55)
[2017-06-24] MEDS: ASPIRIN EC 81 MG TABLET PO SCH (09:20)
[2017-06-24] MEDS: PANTOPRAZOLE 40 MG TABLET PO SCH ×2 (09:20→21:55)
[2017-06-24] MEDS: POLYETHYLENE GLYCOL POWDER 17 GM PACK PO SCH ×2 (09:25→21:55)
[2017-06-24] MEDS: APIXABAN 5 MG TABLET PO SCH ×2 (13:37→21:57)
[2017-06-24] MEDS: MONTELUKAST 10 MG TABLET PO SCH (21:56)
[2017-06-24] MEDS: LEVOTHYROXINE 112 MCG TABLET PO SCH (21:56)
[2017-06-24] MEDS: POTASSIUM CHLORIDE 20 MEQ TABLET PO SCH (21:57)
[2017-06-25] MEDS: DEXTROSE 5% NACL 0.9% 1,000 ML IV SCH ×2 (02:47→08:42)
[2017-06-25 07:20] LABS: Basophils % 0.5 % (0.0-0.8); Eosinophils % 0.1 % (0.00-10.9); Hematocrit 29.5 VOL% (35.7-47.0); Hemoglobin 9.9 GM/DL (12.0-16.0); Immature Granulocytes % 1.5 %; Immature Granulocytes Absolute 0.12 #; Lymphocytes # 2.2 10*3/uL (1.4-4.0); Mean Corpuscular HGB Conc 33.6 GM/DL (32-36); Mean Corpuscular Hemoglobin 31 PG (27-34); Mean Platelet Volume 9.2 FL (9.6-12.0); Monocytes # 1.2 10*3/uL (0.11-0.8); Monocytes % 14.4 % (1.7-12.7); Neutrophils # 4.6 10*3/uL (1.4-7.4); Neutrophils % 56.5 % (38.7-73.9); Platelet Count 344 T/CUMM (130-400); Red Blood Count 3.24 MC/CUMM (3.8-5.5); Red Cell Distribution Width 14.2 % (9.3-17.3); White Blood Count 8.1 T/CUMM (4-12)
[2017-06-25] MEDS: DORNASE ALFA 2.5 MG/2.5 ML VIAL RESP TX SCH (07:33)
[2017-06-25 07:43] LABS: Calcium 7.7 MG/DL (8.5-10.1); Magnesium 1.6 MG/DL (1.8-2.4); Osmolality,Calculated 282.8 MOS/KG (273-304); Potassium 4.2 MMOL/L (3.5-5.1)
[2017-06-25] MEDS: HYDROXYCHLOROQUINE 200 MG TABLET PO SCH (09:39)
[2017-06-25] MEDS: METOPROLOL TARTRATE 50 MG TABLET PO SCH (09:39)
[2017-06-25] MEDS: MULTIVITAMIN (CENTRUM) TABLET PO SCH (09:39)
[2017-06-25] MEDS: OXYBUTYNIN XL 10 MG TABLET PO SCH (09:39)
[2017-06-25] MEDS: POLYETHYLENE GLYCOL POWDER 17 GM PACK PO SCH (09:39)
[2017-06-25] MEDS: ASPIRIN EC 81 MG TABLET PO SCH (09:40)
[2017-06-25] MEDS: CALCIUM (CARBONATE)/VITAMIN D 600 MG-400 UNIT TABLET PO SCH (09:40)
[2017-06-25] MEDS: ASCORBIC ACID 500 MG TABLET PO SCH (09:40)
[2017-06-25] MEDS: PANTOPRAZOLE 40 MG TABLET PO SCH (09:40)
[2017-06-25] MEDS: MAGNESIUM OXIDE 400 MG TABLET PO SCH (09:40)
[2017-06-25] MEDS: APIXABAN 5 MG TABLET PO SCH (09:40)
[2017-06-25] MEDS: POTASSIUM CHLORIDE 20 MEQ TABLET PO SCH (09:40)
[2017-06-25] MEDS: GABAPENTIN 400 MG CAPSULE PO SCH (09:40)
[2017-06-25] MEDS: ALLOPURINOL 100 MG TABLET PO SCH (09:40)
[2017-06-25] MEDS: hydroCHLOROthiazide 12.5 MG CAPSULE PO SCH (09:40)
[2017-06-25] MEDS: GLUCOSAMINE 500 MG TABLET PO SCH (09:41)
[2017-06-25 12:15] VITALS: BP 125/70
== END 2017-06-25 14:19 | disposition home or self-care (01) | DRG 194 ==
LOC: N.5E 13:11
PROVIDERS: ADMIT Internal Medicine Pulmonary Disease; ATTEND Internal Medicine Pulmonary Disease

== ENCOUNTER 2017-10-09 08:08 | Inpatient (IN) ==
[2017-10-15 11:50] VITALS: BP 161/65
== END 2017-10-15 12:50 | disposition home or self-care (01) | DRG 195 ==
LOC: N.ED 08:08 → N.EDINP 09:45 → N.5E 11:30
PROVIDERS: ADMIT Internal Medicine Pulmonary Disease; ATTEND Internal Medicine Pulmonary Disease

== ENCOUNTER 2018-09-21 10:26 | Inpatient (IN) ==
[2018-09-21] MEDS ORDERED: ATROPINE 1 MG/10 ML SYRINGE IV STA (10:30)
[2018-09-21] MEDS ORDERED: HEPARIN/NACL 0.9% 2 UNITS/ML 500 ML IV ONE (10:46)
[2018-09-21] MEDS ORDERED: LIDOCAINE 1% 20 ML VIAL ONE (10:46)
[2018-09-21 10:56] LABS: Basophils # 0.1 10*3/uL (0.0-0.2); Basophils % 0.6 % (0.0-0.8); Eosinophils # 0.4 10*3/uL (0.0-0.87); Eosinophils % 2.9 % (0.00-10.9); Hematocrit 40.4 VOL% (35.7-47.0); Immature Granulocytes % 0.4 %; Immature Granulocytes Absolute 0.06 #; Lymphocytes # 6.1 10*3/uL (1.4-4.0); Lymphocytes % 43.5 % (21.3-54.2); Mean Corpuscular HGB Conc 32.2 GM/DL (32-36); Mean Corpuscular Volume 92.2 FL (87-102); Mean Platelet Volume 10.1 FL (9.6-12.0); Neutrophils % 42.6 % (38.7-73.9); Platelet Count 257 T/CUMM (130-400); Red Blood Count 4.38 MC/CUMM (3.8-5.5)
[2018-09-21] MEDS ORDERED: POTASSIUM CHLORIDE 20 MEQ TABLET PO PRN (11:18)
[2018-09-21] MEDS ORDERED: MAGNESIUM SULF RIDER 4 GM in PREMIX 1 EACH IV PRN (11:18)
[2018-09-21] MEDS ORDERED: MAGNESIUM SULF RIDER 2 GM in PREMIX 1 EACH IV PRN (11:18)
[2018-09-21] MEDS ORDERED: PROMETHAZINE 25 MG TABLET PO PRN (11:18)
[2018-09-21] MEDS ORDERED: DOCUSATE SODIUM 100 MG CAPSULE PO PRN (11:18)
[2018-09-21] MEDS ORDERED: ACETAMINOPHEN 325 MG TABLET PO PRN (11:18)
[2018-09-21] MEDS ORDERED: BISACODYL 5 MG TABLET PO PRN (11:18)
[2018-09-21 11:20] LABS: Albumin 3.1 G/DL (3.4-5.0); Bilirubin,Total 0.4 MG/DL (0.2-1.0); Calcium 8.5 MG/DL (8.5-10.1); Osmolality,Calculated 290.4 MOS/KG (273-304); Total Protein 5.8 G/DL (6.4-8.3)
[2018-09-21] MEDS: SODIUM CHLORIDE 0.9% 1,000 ML IV SCH ×2 (11:45→21:26)
[2018-09-21 12:51] LABS: Basophils # 0.1 10*3/uL (0.0-0.2); Basophils % 0.4 % (0.0-0.8); Eosinophils # 0.1 10*3/uL (0.0-0.87); Eosinophils % 0.8 % (0.00-10.9); Hematocrit 42.1 VOL% (35.7-47.0); Hemoglobin 13.6 GM/DL (12.0-16.0); Immature Granulocytes % 0.7 %; Immature Granulocytes Absolute 0.11 #; Lymphocytes # 2.3 10*3/uL (1.4-4.0); Lymphocytes % 14.7 % (21.3-54.2); Mean Corpuscular HGB Conc 32.3 GM/DL (32-36); Mean Corpuscular Volume 91.5 FL (87-102); Mean Platelet Volume 9.8 FL (9.6-12.0); Monocytes % 9.3 % (1.7-12.7); Neutrophils % 74.1 % (38.7-73.9); Platelet Count 216 T/CUMM (130-400); Red Cell Distribution Width 13.1 % (9.3-17.3); White Blood Count 15.6 T/CUMM (4-12)
[2018-09-21 14:14] LABS: Apearance,Urine CLEAR (Clear); Bacteria,Urine Occasional /HPF (Few); Bilirubin,Urine Negative (Negative); Blood, Urine Negative (Negative); Glucose,Urine (UA) 50 mg/dL (Negative); Ketones,Urine 5 mg/dL (Negative); Mucus,Urine Occasional /LPF (Occasional); Nitrite,Urine Negative (Negative); Protein,Urine Negative; RBC,Urine 3 /HPF (0-4); Urine Color Yellow (Yellow); Urine Specific Gravity 1.011 (1.001-1.035); Urine Urobilinogen < 2.0 EU/DL (0.2-1.0); WBC,Urine 1 /HPF (0-6)
[2018-09-21 15:06] LABS: ABG Base Excess 1.5 MMOL/L (-2.5-2.5); ABG HCO3 25.8 MMOL/L (20-26); ABG Oxygen Saturation 99.5 % (95-100); ABG PH 7.496 (7.35-7.45); ABG TCO2 20.5 MMOL/L (23-27); Allen Test Positive; Pt O2 Delivery Device Ventilator
[2018-09-21] MEDS: PROPOFOL 1,000 MG/100 ML BOTTLE IV SCH ×2 (15:41→20:50)
[2018-09-21] MEDS: MAGNESIUM OXIDE 400 MG TABLET PO SCH ×2 (15:51→21:25)
[2018-09-21] MEDS ORDERED: ETOMIDATE 20 MG/10 ML VIAL IV ONE (17:39)
[2018-09-21] MEDS ORDERED: ROCURONIUM 100 MG/10 ML VIAL IV ONE (17:40)
[2018-09-21] MEDS: hydrALAZINE 20 MG/1 ML VIAL IV PRN (20:15)
[2018-09-21] MEDS ORDERED: hydroCHLOROthiazide 25 MG TABLET PO SCH (21:00)
[2018-09-21] MEDS ORDERED: PANTOPRAZOLE 40 MG TABLET PO SCH (21:00)
[2018-09-21] MEDS: POTASSIUM CHLORIDE 20 MEQ/15 ML UDCUP PO SCH (21:25)
[2018-09-21] MEDS: GABAPENTIN 400 MG CAPSULE PO SCH (21:25)
[2018-09-22] MEDS: PROPOFOL 1,000 MG/100 ML BOTTLE IV SCH ×2 (00:42→07:55)
[2018-09-22 04:12] LABS: Pt O2 Delivery Device Ventilator
[2018-09-22 04:13] LABS: ABG Base Excess 3.3 MMOL/L (-2.5-2.5); ABG HCO3 23.8 MMOL/L (20-26); ABG Oxygen Saturation 98.7 % (95-100); ABG PCO2 24.9 MM HG (35-48); ABG PO2 164.6 MM HG (80-95); ABG TCO2 24.6 MMOL/L (23-27)
[2018-09-22 04:14] LABS: ABG PH 7.598 (7.35-7.45)
[2018-09-22 04:21] LABS: Basophils % 0.5 % (0.0-0.8); Eosinophils # 0.1 10*3/uL (0.0-0.87); Eosinophils % 0.9 % (0.00-10.9); Hematocrit 34.5 VOL% (35.7-47.0); Hemoglobin 11.8 GM/DL (12.0-16.0); Immature Granulocytes % 0.2 %; Immature Granulocytes Absolute 0.02 #; Lymphocytes # 2.1 10*3/uL (1.4-4.0); Lymphocytes % 23.5 % (21.3-54.2); Mean Corpuscular HGB Conc 34.2 GM/DL (32-36); Mean Corpuscular Volume 87.1 FL (87-102); Mean Platelet Volume 10.1 FL (9.6-12.0); Monocytes % 15.1 % (1.7-12.7); Neutrophils % 59.8 % (38.7-73.9); Platelet Count 209 T/CUMM (130-400); Red Blood Count 3.96 MC/CUMM (3.8-5.5); Red Cell Distribution Width 13.2 % (9.3-17.3); White Blood Count 8.8 T/CUMM (4-12)
[2018-09-22 04:39] LABS: Alanine Aminotransferase 116 U/L (13-56); Albumin 2.7 G/DL (3.4-5.0); Alkaline Phosphatase 78 U/L (45-117); Aspartate Amino Transferase 115 U/L (0-37); Blood Urea Nitrogen 21 MG/DL (7-18); Calcium 7.8 MG/DL (8.5-10.1); Glucose 114 MG/DL (74-106); HDL Cholesterol 40 MG/DL (40-60); Osmolality,Calculated 286.1 MOS/KG (273-304); Total Protein 5.6 G/DL (6.4-8.3); Triglycerides 188 MG/DL (2-150); VLDL CHOLESTEROL 37.6 MG/DL
[2018-09-22 04:40] LABS: Troponin I 0.121 NG/ML (0.00-0.045)
[2018-09-22] MEDS: SODIUM CHLORIDE 0.9% 1,000 ML IV SCH (07:37)
[2018-09-22] MEDS: ASPIRIN CHEW 81 MG TABLET PO SCH (08:03)
[2018-09-22] MEDS: MAGNESIUM OXIDE 400 MG TABLET PO SCH ×3 (08:03→20:39)
[2018-09-22] MEDS: HYDROXYCHLOROQUINE 200 MG TABLET PO SCH (08:03)
[2018-09-22] MEDS: LEFLUNOMIDE 10 MG TABLET PO SCH (08:03)
[2018-09-22] MEDS: LEVOTHYROXINE 100 MCG TABLET PO SCH (08:03)
[2018-09-22] MEDS: OXYBUTYNIN XL 5 MG TABLET PO SCH (08:03)
[2018-09-22] MEDS: GABAPENTIN 400 MG CAPSULE PO SCH ×2 (08:04→20:40)
[2018-09-22] MEDS: LANSOPRAZOLE ODT 30 MG TABLET PER TUBE SCH (08:04)
[2018-09-22] MEDS: POTASSIUM CHLORIDE 20 MEQ/15 ML UDCUP PO SCH ×2 (08:04→20:39)
[2018-09-22] MEDS: ASCORBIC ACID 500 MG TABLET PO SCH (08:04)
[2018-09-22] MEDS: IPRATROPIUM 500 MCG/2.5 ML NEB RESP TX SCH ×2 (11:57→19:36)
[2018-09-22 12:55] LABS: Hepatitis B Core IgM Quant < 0.05 Index; Hepatitis B Surface Ag Quant < 0.10 Index; Hepatitis B Surface Ag Result Negative (Negative); Hepatitis C Virus Ab Quant 0.03 Index; Hepatitis C Virus Ab Result Negative (Negative)
[2018-09-22] MEDS: POTASSIUM CHLORIDE 20 MEQ TABLET PO PRN (13:49)
[2018-09-23] MEDS: IPRATROPIUM 500 MCG/2.5 ML NEB RESP TX SCH ×4 (01:04→19:32)
[2018-09-23 05:06] LABS: Basophils # 0.1 10*3/uL (0.0-0.2); Basophils % 0.6 % (0.0-0.8); Eosinophils # 0.3 10*3/uL (0.0-0.87); Eosinophils % 3.4 % (0.00-10.9); Hematocrit 35.3 VOL% (35.7-47.0); Hemoglobin 11.7 GM/DL (12.0-16.0); Immature Granulocytes % 0.3 %; Immature Granulocytes Absolute 0.02 #; Lymphocytes # 1.8 10*3/uL (1.4-4.0); Lymphocytes % 22.7 % (21.3-54.2); Mean Corpuscular HGB Conc 33.1 GM/DL (32-36); Mean Corpuscular Volume 90.7 FL (87-102); Mean Platelet Volume 9.9 FL (9.6-12.0); Monocytes % 16.3 % (1.7-12.7); Neutrophils % 56.7 % (38.7-73.9); Platelet Count 193 T/CUMM (130-400); Red Blood Count 3.89 MC/CUMM (3.8-5.5); Red Cell Distribution Width 13.6 % (9.3-17.3); White Blood Count 7.8 T/CUMM (4-12)
[2018-09-23 05:21] LABS: Calcium 7.5 MG/DL (8.5-10.1); Osmolality,Calculated 283.1 MOS/KG (273-304)
[2018-09-23 06:55] LABS: Anisocytosis Slight; Eosinophils 1 % (0-10); Lymphocytes 16 % (20-55); Microcytosis Slight; Segmented Neutrophils 72 % (50-85); Total Cells Counted 100
[2018-09-23 06:58] LABS: Platelet Estimate Normal
[2018-09-23] MEDS: MAGNESIUM OXIDE 400 MG TABLET PO SCH (10:05)
[2018-09-23] MEDS: OXYBUTYNIN XL 5 MG TABLET PO SCH (10:05)
[2018-09-23] MEDS: HYDROXYCHLOROQUINE 200 MG TABLET PO SCH (10:05)
[2018-09-23] MEDS: POTASSIUM CHLORIDE 20 MEQ/15 ML UDCUP PO SCH ×2 (10:05→21:23)
[2018-09-23] MEDS: LANSOPRAZOLE ODT 30 MG TABLET PER TUBE SCH (10:05)
[2018-09-23] MEDS: GABAPENTIN 400 MG CAPSULE PO SCH ×2 (10:05→20:15)
[2018-09-23] MEDS: LEFLUNOMIDE 10 MG TABLET PO SCH (10:05)
[2018-09-23] MEDS: ASPIRIN CHEW 81 MG TABLET PO SCH (10:05)
[2018-09-23] MEDS: LEVOTHYROXINE 100 MCG TABLET PO SCH (10:06)
[2018-09-23] MEDS: ASCORBIC ACID 500 MG TABLET PO SCH (10:06)
[2018-09-23] MEDS: amLODIPine 5 MG TABLET PO SCH (16:01)
[2018-09-23] MEDS: POTASSIUM CHLORIDE 20 MEQ TABLET PO PRN ×2 (20:15→22:25)
[2018-09-24] MEDS: POTASSIUM CHLORIDE 20 MEQ TABLET PO PRN (01:43)
[2018-09-24] MEDS: IPRATROPIUM 500 MCG/2.5 ML NEB RESP TX SCH ×4 (01:50→19:02)
[2018-09-24 05:44] LABS: Basophils # 0.1 10*3/uL (0.0-0.2); Basophils % 0.5 % (0.0-0.8); Eosinophils # 0.2 10*3/uL (0.0-0.87); Eosinophils % 1.9 % (0.00-10.9); Hematocrit 35.9 VOL% (35.7-47.0); Hemoglobin 11.5 GM/DL (12.0-16.0); Immature Granulocytes % 0.3 %; Immature Granulocytes Absolute 0.03 #; Lymphocytes # 1.9 10*3/uL (1.4-4.0); Lymphocytes % 18.7 % (21.3-54.2); Mean Corpuscular Volume 91.6 FL (87-102); Mean Platelet Volume 9.8 FL (9.6-12.0); Monocytes % 14.2 % (1.7-12.7); Neutrophils % 64.4 % (38.7-73.9); Platelet Count 205 T/CUMM (130-400); Red Blood Count 3.92 MC/CUMM (3.8-5.5); Red Cell Distribution Width 13.3 % (9.3-17.3); White Blood Count 10.1 T/CUMM (4-12)
[2018-09-24 06:17] LABS: Calcium 7.7 MG/DL (8.5-10.1); Osmolality,Calculated 279.4 MOS/KG (273-304)
[2018-09-24 06:22] LABS: Albumin 2.8 G/DL (3.4-5.0); Bilirubin,Direct 0.16 MG/DL (0.0-0.20); Bilirubin,Indirect 0.5 MG/DL (0.0-1.0); Bilirubin,Total 0.7 MG/DL (0.2-1.0)
[2018-09-24] MEDS: LEVOTHYROXINE 100 MCG TABLET PO SCH (09:00)
[2018-09-24] MEDS: LANSOPRAZOLE ODT 30 MG TABLET PER TUBE SCH (09:00)
[2018-09-24] MEDS: ASCORBIC ACID 500 MG TABLET PO SCH (09:00)
[2018-09-24] MEDS: HYDROXYCHLOROQUINE 200 MG TABLET PO SCH (09:00)
[2018-09-24] MEDS: GABAPENTIN 400 MG CAPSULE PO SCH ×2 (09:00→21:18)
[2018-09-24] MEDS: LEFLUNOMIDE 10 MG TABLET PO SCH (09:00)
[2018-09-24] MEDS: ASPIRIN CHEW 81 MG TABLET PO SCH (09:00)
[2018-09-24] MEDS: LACTULOSE 20 GM/30 ML UDCUP PO PRN ×3 (09:00→12:52)
[2018-09-24] MEDS: amLODIPine 5 MG TABLET PO SCH (09:00)
[2018-09-24] MEDS: OXYBUTYNIN XL 5 MG TABLET PO SCH (12:52)
[2018-09-24] MEDS: ONDANSETRON 4 MG/2 ML VIAL IV PRN (13:45)
[2018-09-24] MEDS: POTASSIUM CHLORIDE 20 MEQ/15 ML UDCUP PO SCH ×2 (18:20→21:18)
[2018-09-25] MEDS: IPRATROPIUM 500 MCG/2.5 ML NEB RESP TX SCH ×5 (00:19→19:03)
[2018-09-25] MEDS: ONDANSETRON 4 MG/2 ML VIAL IV PRN ×3 (00:43→10:00)
[2018-09-25] MEDS ORDERED: PROMETHAZINE INJ 25 MG in SODIUM CHLORIDE 0.9% 50 ML IV ONE (01:44)
[2018-09-25 04:25] LABS: Basophils % 0.3 % (0.0-0.8); Eosinophils % 0.4 % (0.00-10.9); Hematocrit 45.2 VOL% (35.7-47.0); Hemoglobin 14.4 GM/DL (12.0-16.0); Immature Granulocytes % 0.4 %; Immature Granulocytes Absolute 0.04 #; Lymphocytes # 1.4 10*3/uL (1.4-4.0); Lymphocytes % 13.4 % (21.3-54.2); Mean Corpuscular HGB Conc 31.9 GM/DL (32-36); Mean Corpuscular Volume 94.8 FL (87-102); Mean Platelet Volume 10.2 FL (9.6-12.0); Monocytes % 9.9 % (1.7-12.7); Neutrophils % 75.6 % (38.7-73.9); Platelet Count 246 T/CUMM (130-400); Red Blood Count 4.77 MC/CUMM (3.8-5.5); Red Cell Distribution Width 13.4 % (9.3-17.3); White Blood Count 10.7 T/CUMM (4-12)
[2018-09-25] MEDS: METOCLOPRAMIDE 10 MG/2 ML VIAL IV SCH ×3 (08:26→18:15)
[2018-09-25] MEDS: ASPIRIN CHEW 81 MG TABLET PO SCH (08:41)
[2018-09-25] MEDS: LEFLUNOMIDE 10 MG TABLET PO SCH (08:41)
[2018-09-25] MEDS: GABAPENTIN 400 MG CAPSULE PO SCH ×2 (08:42→20:23)
[2018-09-25] MEDS: POTASSIUM CHLORIDE 20 MEQ/15 ML UDCUP PO SCH ×2 (08:42→20:23)
[2018-09-25] MEDS: LEVOTHYROXINE 100 MCG TABLET PO SCH (08:42)
[2018-09-25] MEDS: OXYBUTYNIN XL 5 MG TABLET PO SCH (08:42)
[2018-09-25] MEDS: amLODIPine 5 MG TABLET PO SCH (08:42)
[2018-09-25] MEDS: ASCORBIC ACID 500 MG TABLET PO SCH (08:42)
[2018-09-25] MEDS: LANSOPRAZOLE ODT 30 MG TABLET PER TUBE SCH (08:42)
[2018-09-25] MEDS ORDERED: SODIUM CHLOR 0.9% KCL 20 MEQ 20 MEQ/1,000 ML BAG IV SCH (09:00)
[2018-09-25] MEDS: dilTIAZem Drip 125 MG/125 ML PREMIX IV SCH (10:00)
[2018-09-25] MEDS: PANTOPRAZOLE 40 MG VIAL IV SCH (11:28)
[2018-09-25] MEDS: HYDROXYCHLOROQUINE 200 MG TABLET PO SCH (12:11)
[2018-09-25] MEDS: SODIUM CHLORIDE 0.9% 1,000 ML IV SCH (23:11)
[2018-09-26] MEDS: METOCLOPRAMIDE 10 MG/2 ML VIAL IV SCH ×4 (01:19→19:56)
[2018-09-26] MEDS: IPRATROPIUM 500 MCG/2.5 ML NEB RESP TX SCH ×4 (01:49→19:17)
[2018-09-26 04:30] LABS: Basophils # 0.1 10*3/uL (0.0-0.2); Basophils % 0.6 % (0.0-0.8); Eosinophils # 0.1 10*3/uL (0.0-0.87); Eosinophils % 1.4 % (0.00-10.9); Hematocrit 40.7 VOL% (35.7-47.0); Hemoglobin 12.7 GM/DL (12.0-16.0); Immature Granulocytes % 0.4 %; Immature Granulocytes Absolute 0.03 #; Lymphocytes # 1.9 10*3/uL (1.4-4.0); Lymphocytes % 22.3 % (21.3-54.2); Mean Corpuscular HGB Conc 31.2 GM/DL (32-36); Mean Corpuscular Volume 94.2 FL (87-102); Mean Platelet Volume 10.4 FL (9.6-12.0); Monocytes % 19.7 % (1.7-12.7); Neutrophils % 55.6 % (38.7-73.9); Platelet Count 272 T/CUMM (130-400); Red Blood Count 4.32 MC/CUMM (3.8-5.5); Red Cell Distribution Width 13.6 % (9.3-17.3); White Blood Count 8.4 T/CUMM (4-12)
[2018-09-26 04:44] LABS: Calcium 7.7 MG/DL (8.5-10.1); Osmolality,Calculated 279.7 MOS/KG (273-304)
[2018-09-26 05:26] LABS: Band Neutrophils 10 % (0-10); Eosinophils 4 % (0-10); Lymphocytes 18 % (20-55); Segmented Neutrophils 43 % (50-85)
[2018-09-26 05:27] LABS: Total Cells Counted 100
[2018-09-26 05:35] LABS: Platelet Estimate Normal
[2018-09-26] MEDS ORDERED: DIAZEPAM 5 MG TABLET PO ONE (09:18)
[2018-09-26] MEDS ORDERED: diphenhydrAMINE CAP 25 MG CAPSULE PO ONE (09:18)
[2018-09-26] MEDS ORDERED: HEPARIN/NACL 0.9% 2 UNITS/ML 0 ML IV ONE (09:22)
[2018-09-26] MEDS ORDERED: LIDOCAINE 1% 20 ML VIAL ONE (09:22)
[2018-09-26] MEDS ORDERED: LIDOCAINE 1%/EPI INJ 20 ML VIAL ONE (09:31)
[2018-09-26] MEDS ORDERED: VANCOMYCIN 500 MG VIAL ONE (10:13)
[2018-09-26] MEDS ORDERED: HYDROmorphone 2 MG/1 ML VIAL ONE (10:14)
[2018-09-26] MEDS ORDERED: MIDAZOLAM 2 MG/2 ML VIAL ONE (10:14)
[2018-09-26] MEDS ORDERED: TISSUE ADHESIVE 1 EACH APPLICATOR TOP ONE (10:26)
[2018-09-26] MEDS: dilTIAZem Drip 125 MG/125 ML PREMIX IV SCH (10:30)
[2018-09-26] MEDS: ASCORBIC ACID 500 MG TABLET PO SCH (11:18)
[2018-09-26] MEDS: GABAPENTIN 400 MG CAPSULE PO SCH ×2 (11:18→20:03)
[2018-09-26] MEDS: LEVOTHYROXINE 100 MCG TABLET PO SCH (11:18)
[2018-09-26] MEDS: POTASSIUM CHLORIDE 20 MEQ/15 ML UDCUP PO SCH ×2 (11:18→20:04)
[2018-09-26] MEDS: PANTOPRAZOLE 40 MG VIAL IV SCH (12:20)
[2018-09-26] MEDS: SODIUM CHLORIDE 0.9% 1,000 ML IV SCH ×2 (12:35→22:39)
[2018-09-26] MEDS: HYDROXYCHLOROQUINE 200 MG TABLET PO SCH (14:00)
[2018-09-26] MEDS: amLODIPine 5 MG TABLET PO SCH (14:00)
[2018-09-27] MEDS: METOCLOPRAMIDE 10 MG/2 ML VIAL IV SCH ×4 (01:30→18:11)
[2018-09-27] MEDS: IPRATROPIUM 500 MCG/2.5 ML NEB RESP TX SCH ×4 (01:46→19:08)
[2018-09-27] MEDS: SODIUM CHLORIDE 0.9% 1,000 ML IV SCH ×3 (02:03→09:40)
[2018-09-27] MEDS: hydrALAZINE 20 MG/1 ML VIAL IV PRN (02:03)
[2018-09-27 04:37] LABS: Basophils % 0.2 % (0.0-0.8); Eosinophils # 0.2 10*3/uL (0.0-0.87); Hematocrit 38.1 VOL% (35.7-47.0); Immature Granulocytes % 0.6 %; Immature Granulocytes Absolute 0.05 #; Mean Corpuscular HGB Conc 31.5 GM/DL (32-36); Mean Corpuscular Volume 94.8 FL (87-102); Mean Platelet Volume 10.6 FL (9.6-12.0); Monocytes % 18.7 % (1.7-12.7); Neutrophils % 66.5 % (38.7-73.9); Platelet Count 186 T/CUMM (130-400); Red Blood Count 4.02 MC/CUMM (3.8-5.5); Red Cell Distribution Width 13.6 % (9.3-17.3); White Blood Count 8.4 T/CUMM (4-12)
[2018-09-27 04:54] LABS: Calcium 7.6 MG/DL (8.5-10.1); Osmolality,Calculated 284.5 MOS/KG (273-304)
[2018-09-27 05:16] LABS: Anisocytosis Slight; Band Neutrophils 2 % (0-10); Eosinophils 1 % (0-10); Lymphocytes 14 % (20-55); Segmented Neutrophils 67 % (50-85); Total Cells Counted 100
[2018-09-27 05:17] LABS: Microcytosis Slight; Ovalocytes Slight; Platelet Estimate Normal
[2018-09-27] MEDS: GABAPENTIN 400 MG CAPSULE PO SCH ×2 (09:28→20:38)
[2018-09-27] MEDS: ASCORBIC ACID 500 MG TABLET PO SCH (09:28)
[2018-09-27] MEDS: POTASSIUM CHLORIDE 20 MEQ/15 ML UDCUP PO SCH ×2 (09:28→20:38)
[2018-09-27] MEDS: HYDROXYCHLOROQUINE 200 MG TABLET PO SCH (09:28)
[2018-09-27] MEDS: amLODIPine 5 MG TABLET PO SCH (09:28)
[2018-09-27] MEDS: LEVOTHYROXINE 100 MCG TABLET PO SCH (09:28)
[2018-09-27] MEDS: PANTOPRAZOLE 40 MG VIAL IV SCH (09:29)
[2018-09-27] MEDS: dilTIAZem Drip 125 MG/125 ML PREMIX IV SCH ×2 (09:39→13:12)
[2018-09-28] MEDS: IPRATROPIUM 500 MCG/2.5 ML NEB RESP TX SCH ×4 (00:44→21:11)
[2018-09-28] MEDS: METOCLOPRAMIDE 10 MG/2 ML VIAL IV SCH ×4 (02:19→18:52)
[2018-09-28] MEDS: SODIUM CHLORIDE 0.9% 1,000 ML IV SCH ×2 (02:20→06:22)
[2018-09-28 04:31] LABS: Basophils # 0.1 10*3/uL (0.0-0.2); Basophils % 0.6 % (0.0-0.8); Eosinophils # 0.2 10*3/uL (0.0-0.87); Eosinophils % 2.3 % (0.00-10.9); Hematocrit 35.8 VOL% (35.7-47.0); Hemoglobin 11.2 GM/DL (12.0-16.0); Immature Granulocytes % 0.6 %; Immature Granulocytes Absolute 0.05 #; Lymphocytes # 1.4 10*3/uL (1.4-4.0); Lymphocytes % 17.3 % (21.3-54.2); Mean Corpuscular HGB Conc 31.3 GM/DL (32-36); Mean Corpuscular Volume 93.7 FL (87-102); Mean Platelet Volume 9.3 FL (9.6-12.0); Monocytes % 16.9 % (1.7-12.7); Neutrophils % 62.3 % (38.7-73.9); Platelet Count 213 T/CUMM (130-400); Red Blood Count 3.82 MC/CUMM (3.8-5.5); Red Cell Distribution Width 13.4 % (9.3-17.3); White Blood Count 8.1 T/CUMM (4-12)
[2018-09-28 04:52] LABS: Calcium 7.6 MG/DL (8.5-10.1); Osmolality,Calculated 280.5 MOS/KG (273-304)
[2018-09-28 05:14] LABS: Band Neutrophils 5 % (0-10); Lymphocytes 15 % (20-55); Platelet Estimate Adequate; Segmented Neutrophils 71 % (50-85); Total Cells Counted 100
[2018-09-28] MEDS ORDERED: NON-FORMULARY MEDICATION (Alendronate [Fosamax] 70 MG) PO SCH (07:30)
[2018-09-28] MEDS: RIVAROXABAN 10 MG TABLET PO SCH (09:37)
[2018-09-28] MEDS: LEVOTHYROXINE 100 MCG TABLET PO SCH (09:37)
[2018-09-28] MEDS: GABAPENTIN 400 MG CAPSULE PO SCH ×2 (09:37→21:23)
[2018-09-28] MEDS: ASCORBIC ACID 500 MG TABLET PO SCH (09:37)
[2018-09-28] MEDS: amLODIPine 5 MG TABLET PO SCH (09:37)
[2018-09-28] MEDS: HYDROXYCHLOROQUINE 200 MG TABLET PO SCH (09:37)
[2018-09-28] MEDS: PANTOPRAZOLE 40 MG VIAL IV SCH (09:38)
[2018-09-28] MEDS: dilTIAZem Drip 125 MG/125 ML PREMIX IV SCH (09:38)
[2018-09-28] MEDS: POTASSIUM CHLORIDE 20 MEQ/15 ML UDCUP PO SCH ×2 (09:38→21:24)
[2018-09-28] MEDS: MUPIROCIN 2% OINT 22 GM TUBE TOP SCH ×2 (12:45→21:24)
[2018-09-28] MEDS: METOPROLOL TARTRATE 25 MG TABLET PO SCH ×2 (12:45→21:24)
[2018-09-29] MEDS: METOCLOPRAMIDE 10 MG/2 ML VIAL IV SCH ×4 (00:14→18:07)
[2018-09-29] MEDS: IPRATROPIUM 500 MCG/2.5 ML NEB RESP TX SCH ×4 (00:38→20:02)
[2018-09-29 06:17] LABS: Basophils # 0.1 10*3/uL (0.0-0.2); Basophils % 0.6 % (0.0-0.8); Eosinophils # 0.3 10*3/uL (0.0-0.87); Eosinophils % 3.4 % (0.00-10.9); Hematocrit 35.4 VOL% (35.7-47.0); Hemoglobin 11.5 GM/DL (12.0-16.0); Immature Granulocytes % 0.2 %; Immature Granulocytes Absolute 0.02 #; Lymphocytes # 1.7 10*3/uL (1.4-4.0); Lymphocytes % 20.2 % (21.3-54.2); Mean Corpuscular HGB Conc 32.5 GM/DL (32-36); Mean Corpuscular Volume 91.2 FL (87-102); Mean Platelet Volume 9.3 FL (9.6-12.0); Monocytes % 15.9 % (1.7-12.7); Neutrophils % 59.7 % (38.7-73.9); Platelet Count 226 T/CUMM (130-400); Red Blood Count 3.88 MC/CUMM (3.8-5.5); Red Cell Distribution Width 13.2 % (9.3-17.3); White Blood Count 8.5 T/CUMM (4-12)
[2018-09-29 06:27] LABS: Osmolality,Calculated 272.7 MOS/KG (273-304)
[2018-09-29 06:40] LABS: Eosinophils 5 % (0-10); Hypochromasia Slight; Lymphocytes 18 % (20-55); Platelet Estimate Adequate; Segmented Neutrophils 65 % (50-85); Total Cells Counted 100
[2018-09-29] MEDS: amLODIPine 5 MG TABLET PO SCH (09:50)
[2018-09-29] MEDS: METOPROLOL TARTRATE 25 MG TABLET PO SCH ×2 (09:50→22:31)
[2018-09-29] MEDS: MUPIROCIN 2% OINT 22 GM TUBE TOP SCH ×2 (09:50→22:32)
[2018-09-29] MEDS: GABAPENTIN 400 MG CAPSULE PO SCH ×2 (09:50→22:31)
[2018-09-29] MEDS: HYDROXYCHLOROQUINE 200 MG TABLET PO SCH (09:51)
[2018-09-29] MEDS: LEVOTHYROXINE 100 MCG TABLET PO SCH (09:51)
[2018-09-29] MEDS: ASCORBIC ACID 500 MG TABLET PO SCH ×2 (09:51→22:31)
[2018-09-29] MEDS: RIVAROXABAN 10 MG TABLET PO SCH (09:53)
[2018-09-29] MEDS: POTASSIUM CHLORIDE 20 MEQ TABLET PO PRN (09:54)
[2018-09-29] MEDS: PANTOPRAZOLE 40 MG VIAL IV SCH (12:51)
[2018-09-29] MEDS: POTASSIUM CHLORIDE 20 MEQ/15 ML UDCUP PO SCH (12:54)
[2018-09-29] MEDS: MAGNESIUM OXIDE 400 MG TABLET PO SCH ×2 (14:28→22:31)
[2018-09-29] MEDS: POTASSIUM CHLORIDE 20 MEQ TABLET PO SCH (22:31)
[2018-09-30] MEDS: IPRATROPIUM 500 MCG/2.5 ML NEB RESP TX SCH ×4 (01:07→19:59)
[2018-09-30] MEDS: METOCLOPRAMIDE 10 MG/2 ML VIAL IV SCH ×4 (03:31→18:03)
[2018-09-30 04:41] LABS: Basophils # 0.1 10*3/uL (0.0-0.2); Basophils % 0.7 % (0.0-0.8); Eosinophils # 0.3 10*3/uL (0.0-0.87); Eosinophils % 3.5 % (0.00-10.9); Hematocrit 35.9 VOL% (35.7-47.0); Hemoglobin 11.9 GM/DL (12.0-16.0); Immature Granulocytes % 0.2 %; Immature Granulocytes Absolute 0.02 #; Lymphocytes # 2.3 10*3/uL (1.4-4.0); Lymphocytes % 27.3 % (21.3-54.2); Mean Corpuscular HGB Conc 33.1 GM/DL (32-36); Mean Corpuscular Volume 89.5 FL (87-102); Mean Platelet Volume 9.2 FL (9.6-12.0); Monocytes % 16.6 % (1.7-12.7); Neutrophils % 51.7 % (38.7-73.9); Platelet Count 208 T/CUMM (130-400); Red Blood Count 4.01 MC/CUMM (3.8-5.5); Red Cell Distribution Width 13.1 % (9.3-17.3); White Blood Count 8.3 T/CUMM (4-12)
[2018-09-30 04:48] LABS: Calcium 8.4 MG/DL (8.5-10.1); Osmolality,Calculated 273.7 MOS/KG (273-304)
[2018-09-30 05:14] LABS: Eosinophils 2 % (0-10); Lymphocytes 32 % (20-55); Segmented Neutrophils 60 % (50-85); Total Cells Counted 100
[2018-09-30 05:15] LABS: Platelet Estimate Adequate; Polychromasia Slight
[2018-09-30] MEDS: MAGNESIUM OXIDE 400 MG TABLET PO SCH ×3 (08:37→20:32)
[2018-09-30] MEDS: ASCORBIC ACID 500 MG TABLET PO SCH ×2 (08:37→20:32)
[2018-09-30] MEDS: METOPROLOL TARTRATE 25 MG TABLET PO SCH ×2 (08:37→20:32)
[2018-09-30] MEDS: amLODIPine 5 MG TABLET PO SCH (08:38)
[2018-09-30] MEDS: GABAPENTIN 400 MG CAPSULE PO SCH ×2 (08:38→20:32)
[2018-09-30] MEDS: HYDROXYCHLOROQUINE 200 MG TABLET PO SCH (08:38)
[2018-09-30] MEDS: LEVOTHYROXINE 100 MCG TABLET PO SCH (08:38)
[2018-09-30] MEDS: POTASSIUM CHLORIDE 20 MEQ TABLET PO SCH ×2 (08:38→20:32)
[2018-09-30] MEDS: RIVAROXABAN 10 MG TABLET PO SCH (08:38)
[2018-09-30] MEDS: MUPIROCIN 2% OINT 22 GM TUBE TOP SCH ×2 (08:40→20:33)
[2018-09-30] MEDS: SODIUM CHLORIDE 0.9% 1,000 ML IV SCH (09:20)
[2018-09-30] MEDS ORDERED: MAGNESIUM SULF RIDER 4 GM in PREMIX 1 EACH IV PRN (09:44)
[2018-09-30] MEDS: MAGNESIUM SULF RIDER 2 GM in PREMIX 1 EACH IV PRN (10:11)
[2018-09-30] MEDS ORDERED: TUBERCULIN SKIN TEST 0.1 ML SYRINGE INTRADERM ONE (13:30)
[2018-10-01] MEDS: IPRATROPIUM 500 MCG/2.5 ML NEB RESP TX SCH ×4 (00:15→20:25)
[2018-10-01] MEDS: METOCLOPRAMIDE 10 MG/2 ML VIAL IV SCH ×4 (01:45→18:06)
[2018-10-01 05:40] LABS: Calcium 8.5 MG/DL (8.5-10.1); Osmolality,Calculated 274.7 MOS/KG (273-304)
[2018-10-01] MEDS: SODIUM CHLORIDE 0.9% 1,000 ML IV SCH (05:53)
[2018-10-01] MEDS: METOPROLOL TARTRATE 25 MG TABLET PO SCH ×2 (08:17→20:24)
[2018-10-01] MEDS: amLODIPine 5 MG TABLET PO SCH (08:17)
[2018-10-01] MEDS: ASCORBIC ACID 500 MG TABLET PO SCH ×2 (08:17→20:24)
[2018-10-01] MEDS: HYDROXYCHLOROQUINE 200 MG TABLET PO SCH (08:17)
[2018-10-01] MEDS: GABAPENTIN 400 MG CAPSULE PO SCH ×2 (08:17→20:24)
[2018-10-01] MEDS: POTASSIUM CHLORIDE 20 MEQ TABLET PO SCH ×2 (08:17→20:24)
[2018-10-01] MEDS: MUPIROCIN 2% OINT 22 GM TUBE TOP SCH ×2 (08:18→20:27)
[2018-10-01] MEDS: RIVAROXABAN 10 MG TABLET PO SCH (08:18)
[2018-10-01] MEDS: MAGNESIUM OXIDE 400 MG TABLET PO SCH ×3 (08:18→20:24)
[2018-10-01] MEDS: LEVOTHYROXINE 100 MCG TABLET PO SCH (08:21)
[2018-10-02] MEDS: IPRATROPIUM 500 MCG/2.5 ML NEB RESP TX SCH ×4 (00:30→20:25)
[2018-10-02] MEDS: METOCLOPRAMIDE 10 MG/2 ML VIAL IV SCH ×4 (00:40→18:02)
[2018-10-02 06:55] LABS: Calcium 8.2 MG/DL (8.5-10.1); Osmolality,Calculated 274.7 MOS/KG (273-304)
[2018-10-02] MEDS: METOPROLOL TARTRATE 25 MG TABLET PO SCH ×2 (08:13→20:41)
[2018-10-02] MEDS: amLODIPine 5 MG TABLET PO SCH (08:13)
[2018-10-02] MEDS: HYDROXYCHLOROQUINE 200 MG TABLET PO SCH (08:13)
[2018-10-02] MEDS: POTASSIUM CHLORIDE 20 MEQ TABLET PO SCH ×2 (08:13→20:40)
[2018-10-02] MEDS: SODIUM CHLORIDE 0.9% 1,000 ML IV SCH (08:14)
[2018-10-02] MEDS: LEVOTHYROXINE 100 MCG TABLET PO SCH (08:14)
[2018-10-02] MEDS: GABAPENTIN 400 MG CAPSULE PO SCH ×2 (08:14→20:40)
[2018-10-02] MEDS: MUPIROCIN 2% OINT 22 GM TUBE TOP SCH ×2 (08:14→20:41)
[2018-10-02] MEDS: RIVAROXABAN 10 MG TABLET PO SCH (08:14)
[2018-10-02] MEDS: ASCORBIC ACID 500 MG TABLET PO SCH ×2 (08:14→20:41)
[2018-10-02] MEDS: MAGNESIUM OXIDE 400 MG TABLET PO SCH ×3 (08:14→20:40)
[2018-10-02] MEDS: MAGNESIUM SULF RIDER 2 GM in PREMIX 1 EACH IV PRN (08:17)
[2018-10-03] MEDS: SODIUM CHLORIDE 0.9% 1,000 ML IV SCH (00:23)
[2018-10-03] MEDS: IPRATROPIUM 500 MCG/2.5 ML NEB RESP TX SCH ×2 (01:16→08:12)
[2018-10-03] MEDS: METOCLOPRAMIDE 10 MG/2 ML VIAL IV SCH ×3 (01:45→13:26)
[2018-10-03 05:21] LABS: Calcium 8.3 MG/DL (8.5-10.1); Osmolality,Calculated 275.7 MOS/KG (273-304)
[2018-10-03] MEDS: GABAPENTIN 400 MG CAPSULE PO SCH (09:21)
[2018-10-03] MEDS: RIVAROXABAN 10 MG TABLET PO SCH (09:22)
[2018-10-03] MEDS: amLODIPine 5 MG TABLET PO SCH (09:23)
[2018-10-03] MEDS: MAGNESIUM OXIDE 400 MG TABLET PO SCH (09:23)
[2018-10-03] MEDS: LEVOTHYROXINE 100 MCG TABLET PO SCH (09:23)
[2018-10-03] MEDS: METOPROLOL TARTRATE 25 MG TABLET PO SCH (09:23)
[2018-10-03] MEDS: ASCORBIC ACID 500 MG TABLET PO SCH (09:23)
[2018-10-03] MEDS: HYDROXYCHLOROQUINE 200 MG TABLET PO SCH (09:23)
[2018-10-03] MEDS: POTASSIUM CHLORIDE 20 MEQ TABLET PO SCH (09:23)
[2018-10-03] MEDS: MUPIROCIN 2% OINT 22 GM TUBE TOP SCH (09:25)
[2018-10-03 12:18] VITALS: BP 154/79
== END 2018-10-03 13:10 | DRG 242 ==
LOC: N.ED 10:26 → N.ICU 10:52 → N.EDINP 11:17 → N.ICU 11:47 → N.TELEN 09-28 15:50
PROVIDERS: ADMIT Internal Medicine Cardiovascular Disease; ATTEND Internal Medicine Cardiovascular Disease

== ENCOUNTER 2019-06-21 20:02 | Inpatient (IN) ==
[2019-06-21] MEDS ORDERED: DILTIAZEM 50 MG/10 ML VIAL IV STA (20:22)
[2019-06-21] MEDS ORDERED: FUROSEMIDE 40 MG/4 ML VIAL IV STA (20:22)
[2019-06-21] MEDS ORDERED: ALBUTEROL/IPRATROPIUM 3 ML NEB RESP TX STA (20:52)
[2019-06-21] MEDS ORDERED: LEVOFLOXACIN INJ 750 MG in PREMIX 1 EACH IV STA (20:52)
[2019-06-21 21:32] LABS: Basophils % 0.3 % (0.0-0.8); Eosinophils # 0.1 10*3/uL (0.0-0.87); Eosinophils % 1.5 % (0.00-10.9); Hemoglobin 14.4 GM/DL (12.0-16.0); Immature Granulocytes % 0.3 %; Immature Granulocytes Absolute 0.02 #; Lymphocytes # 1.1 10*3/uL (1.4-4.0); Lymphocytes % 17.8 % (21.3-54.2); Mean Corpuscular HGB Conc 31.3 GM/DL (32-36); Mean Corpuscular Volume 95.4 FL (87-102); Mean Platelet Volume 9.9 FL (9.6-12.0); Monocytes % 11.9 % (1.7-12.7); Neutrophils % 68.2 % (38.7-73.9); Platelet Count 143 T/CUMM (130-400); Red Blood Count 4.82 MC/CUMM (3.8-5.5); Red Cell Distribution Width 13.7 % (9.3-17.3)
[2019-06-21 21:45] LABS: INR 1.3; PT Patient Result 13.9 SECS (9.6-12.2); Partial Thromboplastin Time 35.9 SECS (20.8-36.0)
[2019-06-21 21:56] LABS: Albumin 2.6 G/DL (3.4-5.0); Bilirubin,Total 0.8 MG/DL (0.2-1.0); Calcium 8.1 MG/DL (8.5-10.1); Osmolality,Calculated 283.5 MOS/KG (273-304); Total Protein 5.4 G/DL (6.4-8.3)
[2019-06-21 21:58] LABS: Alanine Aminotransferase 48 U/L (13-56); Albumin 2.6 G/DL (3.4-5.0); Alkaline Phosphatase 103 U/L (45-117); Amylase 31 U/L (25-115); Aspartate Amino Transferase 57 U/L (0-37); Blood Urea Nitrogen 24 MG/DL (7-18); Calcium 8.5 MG/DL (8.5-10.1); Estimated Glom Filtration Rate 46 ML/MIN; Glucose 144 MG/DL (74-106); Osmolality,Calculated 281.7 MOS/KG (273-304); Total Protein 6.1 G/DL (6.4-8.3)
[2019-06-21 21:59] LABS: Troponin I 0.105 NG/ML (0.00-0.045)
[2019-06-21] MEDS ORDERED: DOXYCYCLINE HYCLATE INJ 100 MG in SODIUM CHLORIDE 0.9% 100 ML IV STA (22:02)
[2019-06-21] MEDS ORDERED: PROMETHAZINE 25 MG TABLET PO PRN (23:25)
[2019-06-21] MEDS ORDERED: ACETAMINOPHEN 325 MG TABLET PO PRN (23:25)
[2019-06-21] MEDS ORDERED: guaiFENesin/DM ER 600-30 MG TABLET PO PRN (23:25)
[2019-06-21] MEDS ORDERED: ZALEPLON 5 MG CAPSULE PO PRN (23:25)
[2019-06-21] MEDS ORDERED: ONDANSETRON 4 MG/2 ML VIAL IV PRN (23:25)
[2019-06-21] MEDS ORDERED: diphenhydrAMINE CAP 25 MG CAPSULE PO PRN (23:25)
[2019-06-22] MEDS: ALBUTEROL/IPRATROPIUM 3 ML NEB RESP TX SCH ×2 (00:12→07:57)
[2019-06-22] MEDS ORDERED: hydrALAZINE 20 MG/1 ML VIAL IV PRN (00:19)
[2019-06-22] MEDS: dilTIAZem Drip 125 MG/125 ML PREMIX IV SCH ×2 (01:16→21:11)
[2019-06-22 02:21] LABS: Apearance,Urine CLEAR (Clear); Bilirubin,Urine Negative (Negative); Blood, Urine Negative (Negative); Glucose,Urine (UA) Negative (Negative); Ketones,Urine Negative (Negative); Mucus,Urine Occasional /LPF (Occasional); Nitrite,Urine Negative (Negative); Protein,Urine Negative; Squamous Epithelial Cell,Urine Occasional /HPF (0-10); Urine Color Colorless (Yellow); Urine Specific Gravity 1.005 (1.001-1.035); Urine Urobilinogen < 2.0 EU/DL (0.2-1.0); WBC,Urine <1 /HPF (0-6)
[2019-06-22 04:04] LABS: Barbiturates Screen,Urine Negative (Negative); Benzodiazepines Screen,Urine Negative (Negative); Cannabinoid Screen,Urine Negative (Negative); Opiate Screen,Urine Negative (Negative); Phencyclidine Screen,Urine Negative (Negative)
[2019-06-22] MEDS: MEROPENEM 500 MG in SODIUM CHLORIDE 0.9% 100 ML IV SCH ×3 (04:27→21:00)
[2019-06-22 04:51] LABS: Basophils # 0.1 10*3/uL (0.0-0.2); Basophils % 0.7 % (0.0-0.8); Eosinophils # 0.1 10*3/uL (0.0-0.87); Eosinophils % 1.3 % (0.00-10.9); Hemoglobin 10.5 GM/DL (12.0-16.0); Immature Granulocytes % 0.5 %; Immature Granulocytes Absolute 0.05 #; Lymphocytes # 2.2 10*3/uL (1.4-4.0); Lymphocytes % 22.8 % (21.3-54.2); Mean Corpuscular HGB Conc 31.8 GM/DL (32-36); Mean Corpuscular Volume 94.6 FL (87-102); Mean Platelet Volume 10.1 FL (9.6-12.0); Monocytes % 14.4 % (1.7-12.7); Neutrophils % 60.3 % (38.7-73.9); Platelet Count 219 T/CUMM (130-400); Red Blood Count 3.49 MC/CUMM (3.8-5.5); Red Cell Distribution Width 13.4 % (9.3-17.3); White Blood Count 9.8 T/CUMM (4-12)
[2019-06-22 06:06] LABS: Calcium 8.4 MG/DL (8.5-10.1); Osmolality,Calculated 277.8 MOS/KG (273-304); Thyroid Stimulating Hormone 0.465 uIU/ml (0.358-3.74)
[2019-06-22] MEDS ORDERED: FUROSEMIDE 40 MG/4 ML VIAL IV SCH (09:00)
[2019-06-22] MEDS ORDERED: VANCOMYCIN INJ 1,750 MG in SODIUM CHLORIDE 0.9% 500 ML IV ONE (09:00)
[2019-06-22] MEDS ORDERED: METOPROLOL TARTRATE 50 MG TABLET PO SCH (09:00)
[2019-06-22 09:42] LABS: Troponin I 0.113 NG/ML (0.00-0.045)
[2019-06-22] MEDS: POTASSIUM CHLORIDE 20 MEQ TABLET PO SCH ×2 (09:42→21:00)
[2019-06-22] MEDS: PANTOPRAZOLE 40 MG TABLET PO SCH (09:43)
[2019-06-22] MEDS: LEVOTHYROXINE 100 MCG TABLET PO SCH (09:43)
[2019-06-22] MEDS: RIVAROXABAN 10 MG TABLET PO SCH (09:43)
[2019-06-22] MEDS: AMIODARONE 200 MG TABLET PO SCH ×2 (09:43→21:01)
[2019-06-22] MEDS: ASCORBIC ACID 500 MG TABLET PO SCH (09:43)
[2019-06-22] MEDS: MAGNESIUM OXIDE 400 MG TABLET PO SCH ×3 (09:43→20:59)
[2019-06-22] MEDS: ASPIRIN EC 81 MG TABLET PO SCH (09:43)
[2019-06-22] MEDS: methylPREDNISolone SOD SUC 40 MG/1 ML VIAL IV SCH ×2 (10:27→22:25)
[2019-06-22] MEDS: CLINDAMYCIN INJ 300 MG in PREMIX 1 EACH IV SCH ×2 (10:27→19:30)
[2019-06-22] MEDS: DORNASE ALFA 2.5 MG/2.5 ML VIAL RESP TX SCH ×2 (11:10→20:42)
[2019-06-22] MEDS: IPRATROPIUM 500 MCG/2.5 ML NEB RESP TX SCH ×2 (11:15→20:27)
[2019-06-22] MEDS: METOPROLOL TARTRATE 50 MG TABLET PO SCH (21:00)
[2019-06-22] MEDS: ATORVASTATIN 40 MG TABLET PO SCH (21:01)
[2019-06-23] MEDS: IPRATROPIUM 500 MCG/2.5 ML NEB RESP TX SCH ×4 (02:38→18:55)
[2019-06-23] MEDS: CLINDAMYCIN INJ 300 MG in PREMIX 1 EACH IV SCH ×3 (02:47→17:39)
[2019-06-23] MEDS: MEROPENEM 500 MG in SODIUM CHLORIDE 0.9% 100 ML IV SCH ×4 (03:15→21:21)
[2019-06-23] MEDS: LEVOTHYROXINE 100 MCG TABLET PO SCH (06:08)
[2019-06-23 06:35] LABS: Basophils % 0.2 % (0.0-0.8); Hematocrit 33.6 VOL% (35.7-47.0); Immature Granulocytes % 0.2 %; Immature Granulocytes Absolute 0.01 #; Lymphocytes # 1.1 10*3/uL (1.4-4.0); Lymphocytes % 17.4 % (21.3-54.2); Mean Corpuscular HGB Conc 32.7 GM/DL (32-36); Mean Corpuscular Volume 91.3 FL (87-102); Mean Platelet Volume 9.9 FL (9.6-12.0); Monocytes % 6.1 % (1.7-12.7); Neutrophils % 76.1 % (38.7-73.9); Platelet Count 252 T/CUMM (130-400); Red Blood Count 3.68 MC/CUMM (3.8-5.5); Red Cell Distribution Width 13.3 % (9.3-17.3)
[2019-06-23 07:01] LABS: Calcium 8.5 MG/DL (8.5-10.1); Osmolality,Calculated 277.2 MOS/KG (273-304)
[2019-06-23 07:02] LABS: % Iron Saturation 8.6 % (18-50)
[2019-06-23] MEDS: DORNASE ALFA 2.5 MG/2.5 ML VIAL RESP TX SCH ×2 (07:30→19:02)
[2019-06-23] MEDS ORDERED: VANCOMYCIN INJ 1,250 MG in SODIUM CHLORIDE 0.9% 250 ML IV SCH (09:00)
[2019-06-23] MEDS: ASCORBIC ACID 500 MG TABLET PO SCH (09:31)
[2019-06-23] MEDS: MAGNESIUM OXIDE 400 MG TABLET PO SCH ×3 (09:31→21:23)
[2019-06-23] MEDS: POTASSIUM CHLORIDE 20 MEQ TABLET PO SCH ×2 (09:31→21:22)
[2019-06-23] MEDS: ASPIRIN EC 81 MG TABLET PO SCH (09:32)
[2019-06-23] MEDS: PANTOPRAZOLE 40 MG TABLET PO SCH (09:32)
[2019-06-23] MEDS: RIVAROXABAN 10 MG TABLET PO SCH (09:32)
[2019-06-23] MEDS: AMIODARONE 200 MG TABLET PO SCH ×2 (09:32→21:22)
[2019-06-23] MEDS: FUROSEMIDE 40 MG/4 ML VIAL IV SCH ×2 (09:33→15:04)
[2019-06-23] MEDS: METOPROLOL TARTRATE 50 MG TABLET PO SCH ×2 (09:33→21:22)
[2019-06-23] MEDS: methylPREDNISolone SOD SUC 40 MG/1 ML VIAL IV SCH ×2 (09:35→21:44)
[2019-06-23] MEDS ORDERED: BENZONATATE 100 MG CAPSULE PO PRN (10:14)
[2019-06-23] MEDS: FERROUS SULFATE 325 MG TABLET PO SCH ×2 (10:50→21:23)
[2019-06-23] MEDS: POLYETHYLENE GLYCOL POWDER 17 GM PACK PO SCH (10:50)
[2019-06-23] MEDS: dilTIAZem Drip 125 MG/125 ML PREMIX IV SCH (20:00)
[2019-06-23] MEDS ORDERED: SPIRONOLACTONE 25 MG TABLET PO SCH (21:00)
[2019-06-23] MEDS ORDERED: MONTELUKAST 10 MG TABLET PO SCH (21:00)
[2019-06-23] MEDS: ATORVASTATIN 40 MG TABLET PO SCH (21:22)
[2019-06-24] MEDS: IPRATROPIUM 500 MCG/2.5 ML NEB RESP TX SCH ×2 (00:35→07:33)
[2019-06-24] MEDS: CLINDAMYCIN INJ 300 MG in PREMIX 1 EACH IV SCH (02:02)
[2019-06-24] MEDS: MEROPENEM 500 MG in SODIUM CHLORIDE 0.9% 100 ML IV SCH (04:13)
[2019-06-24] MEDS: LEVOTHYROXINE 100 MCG TABLET PO SCH (05:31)
[2019-06-24 07:21] LABS: Basophils % 0.1 % (0.0-0.8); Hematocrit 37.2 VOL% (35.7-47.0); Hemoglobin 12.1 GM/DL (12.0-16.0); Immature Granulocytes % 0.4 %; Immature Granulocytes Absolute 0.03 #; Lymphocytes # 1.4 10*3/uL (1.4-4.0); Lymphocytes % 17.2 % (21.3-54.2); Mean Corpuscular HGB Conc 32.5 GM/DL (32-36); Mean Corpuscular Volume 92.5 FL (87-102); Mean Platelet Volume 9.5 FL (9.6-12.0); Monocytes % 8.6 % (1.7-12.7); Neutrophils % 73.7 % (38.7-73.9); Platelet Count 315 T/CUMM (130-400); Red Blood Count 4.02 MC/CUMM (3.8-5.5); Red Cell Distribution Width 13.4 % (9.3-17.3); White Blood Count 8.2 T/CUMM (4-12)
[2019-06-24 07:38] LABS: Albumin 2.8 G/DL (3.4-5.0); Bilirubin,Total 0.5 MG/DL (0.2-1.0); Calcium 8.3 MG/DL (8.5-10.1); Osmolality,Calculated 280.2 MOS/KG (273-304); Total Protein 6.7 G/DL (6.4-8.3)
[2019-06-24] MEDS: DORNASE ALFA 2.5 MG/2.5 ML VIAL RESP TX SCH (07:41)
[2019-06-24] MEDS ORDERED: metOLazone 5 MG TABLET PO SCH (09:00)
[2019-06-24] MEDS: POLYETHYLENE GLYCOL POWDER 17 GM PACK PO SCH ×2 (10:52→11:07)
[2019-06-24] MEDS: MAGNESIUM OXIDE 400 MG TABLET PO SCH (10:53)
[2019-06-24] MEDS: FERROUS SULFATE 325 MG TABLET PO SCH (10:53)
[2019-06-24] MEDS: PANTOPRAZOLE 40 MG TABLET PO SCH (10:53)
[2019-06-24] MEDS: POTASSIUM CHLORIDE 20 MEQ TABLET PO SCH (10:53)
[2019-06-24] MEDS: ASPIRIN EC 81 MG TABLET PO SCH (10:53)
[2019-06-24] MEDS: methylPREDNISolone SOD SUC 40 MG/1 ML VIAL IV SCH (10:53)
[2019-06-24] MEDS: AMIODARONE 200 MG TABLET PO SCH (10:54)
[2019-06-24] MEDS: ASCORBIC ACID 500 MG TABLET PO SCH (10:54)
[2019-06-24] MEDS: RIVAROXABAN 10 MG TABLET PO SCH (10:54)
[2019-06-24] MEDS: METOPROLOL TARTRATE 50 MG TABLET PO SCH (10:54)
[2019-06-24 12:17] VITALS: BP 162/80
== END 2019-06-24 13:13 | disposition home health service (06) | DRG 280 ==
LOC: N.ED 20:02 → N.EDINP 23:25 → N.TELES 06-22 00:53
PROVIDERS: ADMIT Hospitalist; ATTEND Hospitalist

== ENCOUNTER 2019-12-02 08:05 | Inpatient (IN) ==
[2019-12-02] MEDS ORDERED: ONDANSETRON 4 MG/2 ML VIAL IV STA ×2 (08:27→11:30)
[2019-12-02] MEDS ORDERED: SODIUM CHLORIDE 0.9% 1,000 ML IV STA (08:27)
[2019-12-02 08:59] LABS: Basophils % 0.4 % (0.0-0.8); Hematocrit 42.9 VOL% (35.7-47.0); Immature Granulocytes % 0.4 %; Immature Granulocytes Absolute 0.04 #; Lymphocytes # 1.2 10*3/uL (1.4-4.0); Lymphocytes % 12.7 % (21.3-54.2); Mean Corpuscular HGB Conc 32.6 GM/DL (32-36); Mean Corpuscular Volume 97.5 FL (87-102); Mean Platelet Volume 9.6 FL (9.6-12.0); Monocytes % 8.8 % (1.7-12.7); Neutrophils % 77.7 % (38.7-73.9); Platelet Count 229 T/CUMM (130-400); Red Cell Distribution Width 13.9 % (9.3-17.3); White Blood Count 9.6 T/CUMM (4-12)
[2019-12-02 09:21] LABS: Albumin 3.3 G/DL (3.4-5.0); Bilirubin,Total 0.7 MG/DL (0.2-1.0); Calcium 8.7 MG/DL (8.5-10.1); Osmolality,Calculated 281.4 MOS/KG (273-304); Total Protein 6.6 G/DL (6.4-8.3)
[2019-12-02] MEDS ORDERED: DEXTROSE 50% 25 GM/50 ML VIAL IV PRN (13:51)
[2019-12-02] MEDS ORDERED: GLUCAGON 1 MG VIAL IM PRN (13:51)
[2019-12-02] MEDS: DEXTROSE 5% NACL 0.45% 1,000 ML IV SCH (16:59)
[2019-12-02] MEDS: CLINDAMYCIN INJ 600 MG in PREMIX 1 EACH IV SCH (16:59)
[2019-12-02 17:09] LABS: Risk Ratio 2.14; Thyroid Stimulating Hormone 3.68 uIU/ml (0.358-3.74)
[2019-12-03] MEDS: CLINDAMYCIN INJ 600 MG in PREMIX 1 EACH IV SCH ×3 (01:04→17:01)
[2019-12-03] MEDS: DEXTROSE 5% NACL 0.45% 1,000 ML IV SCH ×3 (01:08→21:50)
[2019-12-03 06:27] LABS: Basophils # 0.1 10*3/uL (0.0-0.2); Basophils % 0.4 % (0.0-0.8); Hematocrit 33.5 VOL% (35.7-47.0); Hemoglobin 10.7 GM/DL (12.0-16.0); Immature Granulocytes % 0.3 %; Immature Granulocytes Absolute 0.05 #; Lymphocytes # 2.3 10*3/uL (1.4-4.0); Lymphocytes % 15.9 % (21.3-54.2); Mean Corpuscular HGB Conc 31.9 GM/DL (32-36); Mean Corpuscular Volume 99.4 FL (87-102); Mean Platelet Volume 9.9 FL (9.6-12.0); Monocytes % 12.6 % (1.7-12.7); Neutrophils % 70.8 % (38.7-73.9); Platelet Count 160 T/CUMM (130-400); Red Blood Count 3.37 MC/CUMM (3.8-5.5); Red Cell Distribution Width 14.3 % (9.3-17.3); White Blood Count 14.5 T/CUMM (4-12)
[2019-12-03 06:44] LABS: Albumin 2.3 G/DL (3.4-5.0); Bilirubin,Total 0.7 MG/DL (0.2-1.0); Calcium 7.8 MG/DL (8.5-10.1); Osmolality,Calculated 279.7 MOS/KG (273-304)
[2019-12-03] MEDS ORDERED: MEPERIDINE 50 MG/1 ML VIAL IM PRN (09:19)
[2019-12-03] MEDS: PANTOPRAZOLE 40 MG VIAL IV SCH ×2 (09:52→21:50)
[2019-12-03] MEDS: ONDANSETRON 4 MG/2 ML VIAL IV PRN ×3 (12:33→22:51)
[2019-12-03] MEDS: METOPROLOL TARTRATE 5 MG/5 ML VIAL IV SCH ×2 (12:34→17:30)
[2019-12-04] MEDS: METOPROLOL TARTRATE 5 MG/5 ML VIAL IV SCH ×2 (00:15→05:52)
[2019-12-04] MEDS: CLINDAMYCIN INJ 600 MG in PREMIX 1 EACH IV SCH ×4 (00:16→23:26)
[2019-12-04] MEDS: DEXTROSE 5% NACL 0.45% 1,000 ML IV SCH ×3 (04:00→19:48)
[2019-12-04] MEDS: HYDROmorphone 2 MG/1 ML VIAL IV PRN ×4 (04:30→20:56)
[2019-12-04 06:07] LABS: Basophils % 0.3 % (0.0-0.8); Eosinophils # 0.1 10*3/uL (0.0-0.87); Eosinophils % 0.5 % (0.00-10.9); Hematocrit 33.2 VOL% (35.7-47.0); Hemoglobin 10.4 GM/DL (12.0-16.0); Immature Granulocytes % 0.5 %; Immature Granulocytes Absolute 0.06 #; Lymphocytes # 1.6 10*3/uL (1.4-4.0); Lymphocytes % 12.6 % (21.3-54.2); Mean Corpuscular HGB Conc 31.3 GM/DL (32-36); Mean Corpuscular Volume 101.2 FL (87-102); Mean Platelet Volume 9.7 FL (9.6-12.0); Monocytes % 13.6 % (1.7-12.7); Neutrophils % 72.5 % (38.7-73.9); Platelet Count 162 T/CUMM (130-400); Red Blood Count 3.28 MC/CUMM (3.8-5.5); White Blood Count 12.6 T/CUMM (4-12)
[2019-12-04 06:51] LABS: Albumin 2.4 G/DL (3.4-5.0); Osmolality,Calculated 275.8 MOS/KG (273-304); Total Protein 5.3 G/DL (6.4-8.3)
[2019-12-04] MEDS: PANTOPRAZOLE 40 MG VIAL IV SCH (09:58)
[2019-12-04] MEDS: ONDANSETRON 4 MG/2 ML VIAL IV PRN ×3 (09:58→20:56)
[2019-12-04] MEDS: POTASSIUM CHLORIDE RIDER 10 MEQ in PREMIX 1 EACH IV SCH ×2 (11:04→13:19)
[2019-12-04] MEDS ORDERED: METOPROLOL TARTRATE 5 MG/5 ML VIAL IV SCH (12:00)
[2019-12-04] MEDS ORDERED: METOPROLOL TARTRATE 5 MG/5 ML VIAL IV PRN (13:51)
[2019-12-04] MEDS ORDERED: METHYLNALTREXONE 12 MG/0.6 ML VIAL SUBCUT ONE (14:00)
[2019-12-04] MEDS: MONTELUKAST 10 MG TABLET PO SCH (21:29)
[2019-12-04] MEDS: METOPROLOL TARTRATE 50 MG TABLET PO SCH (21:29)
[2019-12-05] MEDS: DEXTROSE 5% NACL 0.45% 1,000 ML IV SCH ×3 (01:42→21:07)
[2019-12-05] MEDS: HYDROmorphone 2 MG/1 ML VIAL IV PRN ×3 (01:43→20:58)
[2019-12-05] MEDS: ONDANSETRON 4 MG/2 ML VIAL IV PRN ×4 (01:43→20:58)
[2019-12-05] MEDS: hydrALAZINE 20 MG/1 ML VIAL IV PRN (04:47)
[2019-12-05] MEDS ORDERED: PANTOPRAZOLE 40 MG VIAL IV ONE (05:30)
[2019-12-05] MEDS ORDERED: ONDANSETRON 4 MG/2 ML VIAL IV ONE (05:30)
[2019-12-05 06:34] LABS: Basophils % 0.3 % (0.0-0.8); Hematocrit 35.1 VOL% (35.7-47.0); Hemoglobin 11.2 GM/DL (12.0-16.0); Immature Granulocytes % 0.8 %; Immature Granulocytes Absolute 0.08 #; Lymphocytes # 1.3 10*3/uL (1.4-4.0); Lymphocytes % 12.6 % (21.3-54.2); Mean Corpuscular HGB Conc 31.9 GM/DL (32-36); Mean Corpuscular Volume 99.4 FL (87-102); Mean Platelet Volume 10.4 FL (9.6-12.0); Neutrophils % 74.3 % (38.7-73.9); Platelet Count 174 T/CUMM (130-400); Red Blood Count 3.53 MC/CUMM (3.8-5.5); Red Cell Distribution Width 13.8 % (9.3-17.3); White Blood Count 10.2 T/CUMM (4-12)
[2019-12-05 07:03] LABS: Albumin 2.5 G/DL (3.4-5.0); Bilirubin,Total 1.1 MG/DL (0.2-1.0); Calcium 8.4 MG/DL (8.5-10.1); Osmolality,Calculated 268.4 MOS/KG (273-304); Total Protein 5.9 G/DL (6.4-8.3)
[2019-12-05] MEDS: LEVOTHYROXINE 100 MCG TABLET PO SCH (07:19)
[2019-12-05] MEDS: PANTOPRAZOLE 40 MG TABLET PO SCH (08:11)
[2019-12-05] MEDS: CLINDAMYCIN INJ 600 MG in PREMIX 1 EACH IV SCH (08:12)
[2019-12-05] MEDS: AMIODARONE 200 MG TABLET PO SCH (08:12)
[2019-12-05] MEDS: METOPROLOL TARTRATE 50 MG TABLET PO SCH ×2 (08:12→20:55)
[2019-12-05] MEDS: SIMETHICONE CHEW 80 MG TABLET PO SCH ×2 (15:16→18:59)
[2019-12-05] MEDS ORDERED: CLINDAMYCIN IV SCH (16:00)
[2019-12-05] MEDS ORDERED: SODIUM CHLORIDE 0.9% IV SCH (16:00)
[2019-12-05] MEDS: MONTELUKAST 10 MG TABLET PO SCH (20:55)
[2019-12-05] MEDS: SODIUM CHLORIDE 0.9% IV SCH (21:06)
[2019-12-05] MEDS: CLINDAMYCIN IV SCH (21:06)
[2019-12-06] MEDS: hydrALAZINE 20 MG/1 ML VIAL IV PRN ×2 (00:45→16:25)
[2019-12-06] MEDS: HYDROmorphone 2 MG/1 ML VIAL IV PRN ×5 (00:58→19:43)
[2019-12-06] MEDS: ONDANSETRON 4 MG/2 ML VIAL IV PRN ×5 (01:00→19:46)
[2019-12-06] MEDS: SODIUM CHLORIDE 0.9% IV SCH (04:59)
[2019-12-06] MEDS: CLINDAMYCIN IV SCH (04:59)
[2019-12-06] MEDS: LEVOTHYROXINE 100 MCG TABLET PO SCH (05:43)
[2019-12-06 06:04] LABS: Basophils % 0.3 % (0.0-0.8); Hematocrit 35.3 VOL% (35.7-47.0); Hemoglobin 11.5 GM/DL (12.0-16.0); Immature Granulocytes % 0.9 %; Immature Granulocytes Absolute 0.08 #; Lymphocytes # 1.4 10*3/uL (1.4-4.0); Lymphocytes % 16.4 % (21.3-54.2); Mean Corpuscular HGB Conc 32.6 GM/DL (32-36); Mean Corpuscular Volume 97.5 FL (87-102); Mean Platelet Volume 10.2 FL (9.6-12.0); Monocytes % 16.4 % (1.7-12.7); Platelet Count 223 T/CUMM (130-400); Red Blood Count 3.62 MC/CUMM (3.8-5.5); Red Cell Distribution Width 13.9 % (9.3-17.3); White Blood Count 8.6 T/CUMM (4-12)
[2019-12-06 06:36] LABS: Band Neutrophils 2 % (0-10); Hypochromasia 1+; Lymphocytes 17 % (20-55); Ovalocytes Slight; Platelet Estimate Adequate; Segmented Neutrophils 64 % (50-85); Total Cells Counted 100
[2019-12-06 07:05] LABS: Albumin 2.7 G/DL (3.4-5.0); Bilirubin,Total 0.8 MG/DL (0.2-1.0); Calcium 8.6 MG/DL (8.5-10.1); Osmolality,Calculated 267.4 MOS/KG (273-304); Total Protein 5.8 G/DL (6.4-8.3)
[2019-12-06] MEDS: AMIODARONE 200 MG TABLET PO SCH (09:41)
[2019-12-06] MEDS: METOPROLOL TARTRATE 50 MG TABLET PO SCH ×2 (09:47→22:15)
[2019-12-06] MEDS: PANTOPRAZOLE 40 MG TABLET PO SCH ×2 (09:47→22:10)
[2019-12-06] MEDS: SIMETHICONE CHEW 80 MG TABLET PO SCH ×3 (09:47→18:45)
[2019-12-06] MEDS ORDERED: HYDROmorphone 2 MG/1 ML VIAL IM PRN (11:50)
[2019-12-06] MEDS: LIDOCAINE 5% PATCH TRANSDERM SCH (14:50)
[2019-12-06] MEDS: ONDANSETRON 4 MG TABLET PO PRN ×2 (14:50→18:50)
[2019-12-06] MEDS: DEXTROSE 5% NACL 0.45% 1,000 ML IV SCH ×2 (14:54→18:45)
[2019-12-06] MEDS: MONTELUKAST 10 MG TABLET PO SCH (22:10)
[2019-12-07] MEDS: HYDROmorphone 2 MG/1 ML VIAL IV PRN ×4 (00:37→20:08)
[2019-12-07] MEDS: ONDANSETRON 4 MG TABLET PO PRN (03:28)
[2019-12-07] MEDS: DEXTROSE 5% NACL 0.45% 1,000 ML IV SCH ×2 (04:33→18:05)
[2019-12-07] MEDS: LEVOTHYROXINE 100 MCG TABLET PO SCH ×2 (05:06→06:19)
[2019-12-07] MEDS: LIDOCAINE 5% PATCH TRANSDERM SCH (08:58)
[2019-12-07] MEDS: AMIODARONE 200 MG TABLET PO SCH (08:59)
[2019-12-07] MEDS: SIMETHICONE CHEW 80 MG TABLET PO SCH ×3 (08:59→18:05)
[2019-12-07] MEDS: METOPROLOL TARTRATE 50 MG TABLET PO SCH ×2 (08:59→20:04)
[2019-12-07] MEDS: PANTOPRAZOLE 40 MG TABLET PO SCH ×2 (09:00→20:05)
[2019-12-07] MEDS ORDERED: MEPERIDINE 50 MG/1 ML VIAL IM PRN (10:13)
[2019-12-07] MEDS: oxyCODONE/ACETAMINOPHEN 5-325 MG TABLET PO PRN ×2 (11:57→18:07)
[2019-12-07] MEDS: ONDANSETRON 4 MG/2 ML VIAL IV PRN ×2 (11:57→18:23)
[2019-12-07] MEDS: MONTELUKAST 10 MG TABLET PO SCH (20:05)
[2019-12-07] MEDS: GABAPENTIN 400 MG CAPSULE PO SCH (20:05)
[2019-12-08] MEDS: HYDROmorphone 2 MG/1 ML VIAL IV PRN ×2 (00:30→05:44)
[2019-12-08] MEDS: LEVOTHYROXINE 100 MCG TABLET PO SCH (05:43)
[2019-12-08 06:47] LABS: Basophils # 0.1 10*3/uL (0.0-0.2); Basophils % 0.5 % (0.0-0.8); Hematocrit 39.1 VOL% (35.7-47.0); Hemoglobin 12.7 GM/DL (12.0-16.0); Immature Granulocytes % 1.1 %; Immature Granulocytes Absolute 0.11 #; Lymphocytes # 1.6 10*3/uL (1.4-4.0); Lymphocytes % 16.1 % (21.3-54.2); Mean Corpuscular HGB Conc 32.5 GM/DL (32-36); Mean Corpuscular Volume 97.5 FL (87-102); Monocytes % 11.8 % (1.7-12.7); Neutrophils % 70.5 % (38.7-73.9); Platelet Count 252 T/CUMM (130-400); Red Blood Count 4.01 MC/CUMM (3.8-5.5); Red Cell Distribution Width 13.7 % (9.3-17.3); White Blood Count 9.9 T/CUMM (4-12)
[2019-12-08 07:01] LABS: Calcium 8.4 MG/DL (8.5-10.1); Osmolality,Calculated 260.7 MOS/KG (273-304)
[2019-12-08] MEDS ORDERED: LUBIPROSTONE 24 MCG CAPSULE PO SCH (09:00)
[2019-12-08] MEDS ORDERED: SODIUM CHLORIDE 0.9% 500 ML IV ONE (09:25)
[2019-12-08] MEDS: GABAPENTIN 400 MG CAPSULE PO SCH (10:53)
[2019-12-08] MEDS: METOPROLOL TARTRATE 50 MG TABLET PO SCH (10:53)
[2019-12-08] MEDS: SIMETHICONE CHEW 80 MG TABLET PO SCH ×3 (10:53→17:59)
[2019-12-08] MEDS: AMIODARONE 200 MG TABLET PO SCH (10:53)
[2019-12-08] MEDS: LACTATED RINGERS 1,000 ML IV SCH ×2 (11:01→20:00)
[2019-12-08] MEDS: LIDOCAINE 5% PATCH TRANSDERM SCH (11:33)
[2019-12-08] MEDS: PANTOPRAZOLE 40 MG TABLET PO SCH ×2 (11:35→20:24)
[2019-12-08 12:25] LABS: Hematocrit 34.1 VOL% (35.7-47.0); Hemoglobin 11.1 GM/DL (12.0-16.0)
[2019-12-08] MEDS: ENOXAPARIN 40 MG/0.4 ML SYRINGE SUBCUT SCH (12:50)
[2019-12-08] MEDS: oxyCODONE/ACETAMINOPHEN 5-325 MG TABLET PO PRN (12:50)
[2019-12-08] MEDS: MEROPENEM 500 MG in SODIUM CHLORIDE 0.9% 100 ML IV SCH ×2 (13:05→17:58)
[2019-12-08 13:07] LABS: Albumin 2.1 G/DL (3.4-5.0); Bilirubin,Total 0.5 MG/DL (0.2-1.0); Calcium 7.9 MG/DL (8.5-10.1); Osmolality,Calculated 260.7 MOS/KG (273-304); Total Protein 4.7 G/DL (6.4-8.3)
[2019-12-08] MEDS ORDERED: SODIUM CHLORIDE 0.9% 250 ML IV ONE (13:12)
[2019-12-08] MEDS ORDERED: NOREPINEPHRINE 8 MG in SODIUM CHLORIDE 0.9% 242 ML IV PRN (13:12)
[2019-12-08] MEDS: DEXTROSE 5% NACL 0.45% 1,000 ML IV SCH (19:42)
[2019-12-09] MEDS: MEROPENEM 500 MG in SODIUM CHLORIDE 0.9% 100 ML IV SCH ×5 (00:44→23:09)
[2019-12-09] MEDS: LACTATED RINGERS 1,000 ML IV SCH ×4 (03:39→23:09)
[2019-12-09 05:55] LABS: Calcium 7.9 MG/DL (8.5-10.1); Osmolality,Calculated 263.5 MOS/KG (273-304)
[2019-12-09 05:56] LABS: Basophils # 0.1 10*3/uL (0.0-0.2); Basophils % 0.6 % (0.0-0.8); Eosinophils % 0.2 % (0.00-10.9); Hematocrit 29.2 VOL% (35.7-47.0); Hemoglobin 9.5 GM/DL (12.0-16.0); Immature Granulocytes % 2.2 %; Immature Granulocytes Absolute 0.43 #; Lymphocytes # 1.4 10*3/uL (1.4-4.0); Lymphocytes % 7.4 % (21.3-54.2); Mean Corpuscular HGB Conc 32.5 GM/DL (32-36); Mean Corpuscular Volume 97.3 FL (87-102); Monocytes % 6.4 % (1.7-12.7); Neutrophils % 83.2 % (38.7-73.9); Platelet Count 191 T/CUMM (130-400); White Blood Count 19.4 T/CUMM (4-12)
[2019-12-09] MEDS: LEVOTHYROXINE 100 MCG TABLET PO SCH (06:08)
[2019-12-09 06:25] LABS: Band Neutrophils 15 % (0-10); Lymphocytes 9 % (20-55); Metamyelocytes 3 %; Segmented Neutrophils 70 % (50-85); Total Cells Counted 100
[2019-12-09 06:26] LABS: Acanthocytes Few
[2019-12-09 06:27] LABS: Burr Cells Slight; Microcytosis Slight; Ovalocytes Slight; Platelet Estimate Adequate
[2019-12-09] MEDS: oxyCODONE/ACETAMINOPHEN 5-325 MG TABLET PO PRN ×3 (07:30→21:51)
[2019-12-09] MEDS: PANTOPRAZOLE 40 MG TABLET PO SCH ×2 (08:50→21:01)
[2019-12-09] MEDS: AMIODARONE 200 MG TABLET PO SCH (09:00)
[2019-12-09] MEDS: LIDOCAINE 5% PATCH TRANSDERM SCH (09:00)
[2019-12-09] MEDS: SIMETHICONE CHEW 80 MG TABLET PO SCH ×4 (09:00→17:59)
[2019-12-09] MEDS: ENOXAPARIN 40 MG/0.4 ML SYRINGE SUBCUT SCH (11:35)
[2019-12-09] MEDS: ONDANSETRON 4 MG TABLET PO PRN (13:10)
[2019-12-09] MEDS: ONDANSETRON 4 MG/2 ML VIAL IV PRN ×2 (15:18→20:58)
[2019-12-10] MEDS: ONDANSETRON 4 MG/2 ML VIAL IV PRN ×4 (01:57→21:00)
[2019-12-10] MEDS: MEROPENEM 500 MG in SODIUM CHLORIDE 0.9% 100 ML IV SCH ×3 (06:12→17:06)
[2019-12-10] MEDS: oxyCODONE/ACETAMINOPHEN 5-325 MG TABLET PO PRN ×3 (06:13→21:27)
[2019-12-10] MEDS: LEVOTHYROXINE 100 MCG TABLET PO SCH (06:13)
[2019-12-10 08:00] LABS: Basophils # 0.1 10*3/uL (0.0-0.2); Basophils % 0.2 % (0.0-0.8); Hematocrit 30.4 VOL% (35.7-47.0); Hemoglobin 9.6 GM/DL (12.0-16.0); Immature Granulocytes % 1.9 %; Immature Granulocytes Absolute 0.43 #; Lymphocytes # 1.3 10*3/uL (1.4-4.0); Lymphocytes % 5.8 % (21.3-54.2); Mean Corpuscular HGB Conc 31.6 GM/DL (32-36); Mean Corpuscular Volume 99.3 FL (87-102); Monocytes % 5.1 % (1.7-12.7); Platelet Count 200 T/CUMM (130-400); Red Blood Count 3.06 MC/CUMM (3.8-5.5); Red Cell Distribution Width 14.4 % (9.3-17.3); White Blood Count 22.5 T/CUMM (4-12)
[2019-12-10 08:25] LABS: Calcium 8.2 MG/DL (8.5-10.1); Osmolality,Calculated 270.1 MOS/KG (273-304)
[2019-12-10 09:07] LABS: Anisocytosis 1+; Band Neutrophils 8 % (0-10); Lymphocytes 3 % (20-55); Metamyelocytes 1 %; Microcytosis 1+; Platelet Estimate Normal; Segmented Neutrophils 84 % (50-85); Total Cells Counted 100
[2019-12-10 09:08] LABS: Acanthocytes Few; Ovalocytes 1+
[2019-12-10] MEDS: LACTATED RINGERS 1,000 ML IV SCH ×2 (09:16→14:54)
[2019-12-10] MEDS: PANTOPRAZOLE 40 MG TABLET PO SCH ×2 (09:17→21:05)
[2019-12-10] MEDS: AMIODARONE 200 MG TABLET PO SCH (09:17)
[2019-12-10] MEDS: SIMETHICONE CHEW 80 MG TABLET PO SCH ×3 (09:17→17:06)
[2019-12-10] MEDS: ENOXAPARIN 40 MG/0.4 ML SYRINGE SUBCUT SCH (11:38)
[2019-12-10] MEDS: DEXT 5% NACL 0.45% KCL 20 MEQ 20 MEQ/1,000 ML BAG IV SCH (14:45)
[2019-12-10] MEDS: LIDOCAINE 5% PATCH TRANSDERM SCH (21:04)
[2019-12-11] MEDS: MEROPENEM 500 MG in SODIUM CHLORIDE 0.9% 100 ML IV SCH ×4 (00:26→20:07)
[2019-12-11 03:16] LABS: Basophils # 0.1 10*3/uL (0.0-0.2); Basophils % 0.3 % (0.0-0.8); Hematocrit 33.6 VOL% (35.7-47.0); Hemoglobin 10.8 GM/DL (12.0-16.0); Immature Granulocytes Absolute 0.21 #; Lymphocytes # 1.5 10*3/uL (1.4-4.0); Lymphocytes % 7.1 % (21.3-54.2); Mean Corpuscular HGB Conc 32.1 GM/DL (32-36); Mean Corpuscular Volume 98.2 FL (87-102); Mean Platelet Volume 9.5 FL (9.6-12.0); Monocytes % 5.7 % (1.7-12.7); Neutrophils % 85.9 % (38.7-73.9); Platelet Count 218 T/CUMM (130-400); Red Blood Count 3.42 MC/CUMM (3.8-5.5); Red Cell Distribution Width 14.4 % (9.3-17.3); White Blood Count 20.7 T/CUMM (4-12)
[2019-12-11 03:44] LABS: Calcium 8.5 MG/DL (8.5-10.1)
[2019-12-11 04:44] LABS: Acanthocytes Few
[2019-12-11 04:45] LABS: Burr Cells Slight; Microcytosis 1+; Ovalocytes Few
[2019-12-11 04:46] LABS: Platelet Estimate Normal
[2019-12-11] MEDS: ONDANSETRON 4 MG/2 ML VIAL IV PRN ×2 (05:33→15:31)
[2019-12-11] MEDS: oxyCODONE/ACETAMINOPHEN 5-325 MG TABLET PO PRN (06:12)
[2019-12-11] MEDS: LEVOTHYROXINE 100 MCG TABLET PO SCH (06:13)
[2019-12-11] MEDS ORDERED: hydrALAZINE 20 MG/1 ML VIAL IV PRN (09:58)
[2019-12-11] MEDS: PANTOPRAZOLE 40 MG TABLET PO SCH (10:20)
[2019-12-11] MEDS: SIMETHICONE CHEW 80 MG TABLET PO SCH ×3 (10:20→18:08)
[2019-12-11] MEDS: LIDOCAINE 5% PATCH TRANSDERM SCH (10:21)
[2019-12-11] MEDS: DEXT 5% NACL 0.45% KCL 20 MEQ 20 MEQ/1,000 ML BAG IV SCH (12:11)
[2019-12-11 14:02] LABS: Apearance,Urine CLEAR (Clear); Bilirubin,Urine Negative (Negative); Blood, Urine Negative (Negative); Glucose,Urine (UA) Negative (Negative); Hyaline Casts,Urine 5 /LPF (0-3); Ketones,Urine 20 mg/dL (Negative); Mucus,Urine Occasional /LPF (Occasional); Nitrite,Urine Negative (Negative); Protein,Urine Negative; Squamous Epithelial Cell,Urine Occasional /HPF (0-10); Urine Color Yellow (Yellow); Urine Specific Gravity 1.019 (1.001-1.035); Urine Urobilinogen < 2.0 EU/DL (0.2-1.0)
[2019-12-11] MEDS: ENOXAPARIN 40 MG/0.4 ML SYRINGE SUBCUT SCH (15:31)
[2019-12-11] MEDS: VANCOMYCIN INJ 1,500 MG in SODIUM CHLORIDE 0.9% 500 ML IV SCH (15:32)
[2019-12-11] MEDS: ALBUTEROL/IPRATROPIUM 3 ML NEB RESP TX SCH ×3 (15:37→23:15)
[2019-12-11] MEDS ORDERED: TRACE ELEMENTS (5) 1 ML, MULTIVITAMIN INJ 10 ML in AMINO ACIDS/DEXT/LYTES 5-15% 2,000 ML IV SCH (17:00)
[2019-12-11] MEDS: PANTOPRAZOLE 40 MG VIAL IV SCH (18:05)
[2019-12-11] MEDS: HYDROmorphone 2 MG/1 ML VIAL IV PRN ×2 (18:07→22:04)
[2019-12-11] MEDS: FAT EMULSION 20% 250 ML IV SCH (18:10)
[2019-12-11] MEDS ORDERED: ATORVASTATIN 40 MG TABLET PO SCH (21:00)
[2019-12-11] MEDS: GABAPENTIN 400 MG CAPSULE PO SCH (22:04)
[2019-12-12] MEDS: MEROPENEM 500 MG in SODIUM CHLORIDE 0.9% 100 ML IV SCH ×4 (02:01→17:07)
[2019-12-12] MEDS: ALBUTEROL/IPRATROPIUM 3 ML NEB RESP TX SCH ×6 (03:40→23:53)
[2019-12-12] MEDS: HYDROmorphone 2 MG/1 ML VIAL IV PRN ×2 (05:01→14:07)
[2019-12-12] MEDS: ONDANSETRON 4 MG/2 ML VIAL IV PRN ×2 (05:12→14:13)
[2019-12-12 05:54] LABS: Basophils % 0.3 % (0.0-0.8); Hematocrit 31.5 VOL% (35.7-47.0); Hemoglobin 10.1 GM/DL (12.0-16.0); Immature Granulocytes % 0.9 %; Immature Granulocytes Absolute 0.14 #; Lymphocytes # 1.2 10*3/uL (1.4-4.0); Lymphocytes % 7.4 % (21.3-54.2); Mean Corpuscular HGB Conc 32.1 GM/DL (32-36); Mean Corpuscular Volume 99.7 FL (87-102); Mean Platelet Volume 9.7 FL (9.6-12.0); Neutrophils % 82.4 % (38.7-73.9); Platelet Count 232 T/CUMM (130-400); Red Blood Count 3.16 MC/CUMM (3.8-5.5); Red Cell Distribution Width 14.6 % (9.3-17.3); White Blood Count 15.7 T/CUMM (4-12)
[2019-12-12 06:29] LABS: Calcium 8.6 MG/DL (8.5-10.1)
[2019-12-12 06:34] LABS: Prealbumin 12.7 MG/DL (20-40)
[2019-12-12] MEDS: LEVOTHYROXINE 100 MCG TABLET PO SCH (10:16)
[2019-12-12] MEDS: SIMETHICONE CHEW 80 MG TABLET PO SCH ×3 (10:18→17:08)
[2019-12-12] MEDS: LIDOCAINE 5% PATCH TRANSDERM SCH (10:18)
[2019-12-12] MEDS: GABAPENTIN 400 MG CAPSULE PO SCH ×2 (10:18→23:14)
[2019-12-12] MEDS: PANTOPRAZOLE 40 MG VIAL IV SCH (10:19)
[2019-12-12] MEDS: VANCOMYCIN INJ 1,500 MG in SODIUM CHLORIDE 0.9% 500 ML IV SCH (14:05)
[2019-12-12] MEDS: METOPROLOL TARTRATE 5 MG/5 ML VIAL IV SCH ×2 (14:08→17:08)
[2019-12-12] MEDS: ENOXAPARIN 40 MG/0.4 ML SYRINGE SUBCUT SCH (14:13)
[2019-12-12] MEDS: TRACE ELEMENTS (5) 1 ML, MULTIVITAMIN INJ 10 ML in AMINO ACIDS/DEXT/LYTES 5-15% 2,000 ML IV SCH (17:33)
[2019-12-13] MEDS: METOPROLOL TARTRATE 5 MG/5 ML VIAL IV SCH ×4 (00:34→18:10)
[2019-12-13] MEDS: MEROPENEM 500 MG in SODIUM CHLORIDE 0.9% 100 ML IV SCH ×5 (00:39→23:55)
[2019-12-13] MEDS: ONDANSETRON 4 MG/2 ML VIAL IV PRN ×4 (02:19→20:28)
[2019-12-13] MEDS: HYDROmorphone 2 MG/1 ML VIAL IV PRN ×4 (02:20→20:27)
[2019-12-13] MEDS: ALBUTEROL/IPRATROPIUM 3 ML NEB RESP TX SCH ×5 (03:41→21:02)
[2019-12-13] MEDS: LEVOTHYROXINE 100 MCG TABLET PO SCH (05:46)
[2019-12-13 06:25] LABS: Basophils % 0.4 % (0.0-0.8); Hematocrit 30.6 VOL% (35.7-47.0); Hemoglobin 8.6 GM/DL (12.0-16.0); Immature Granulocytes % 0.8 %; Immature Granulocytes Absolute 0.07 #; Lymphocytes # 1.2 10*3/uL (1.4-4.0); Lymphocytes % 12.4 % (21.3-54.2); Mean Corpuscular HGB Conc 28.1 GM/DL (32-36); Mean Corpuscular Volume 111.7 FL (87-102); Mean Platelet Volume 10.1 FL (9.6-12.0); Monocytes % 14.5 % (1.7-12.7); Neutrophils % 71.9 % (38.7-73.9); Platelet Count 181 T/CUMM (130-400); Red Blood Count 2.74 MC/CUMM (3.8-5.5); Red Cell Distribution Width 15.6 % (9.3-17.3); White Blood Count 9.3 T/CUMM (4-12)
[2019-12-13 06:31] LABS: Anisocytosis 1+
[2019-12-13 06:32] LABS: Acanthocytes Few; Ovalocytes Few; Platelet Estimate Adequate
[2019-12-13 08:01] LABS: Calcium 8.2 MG/DL (8.5-10.1); Osmolality,Calculated 275.1 MOS/KG (273-304)
[2019-12-13] MEDS: SIMETHICONE CHEW 80 MG TABLET PO SCH ×3 (08:22→18:46)
[2019-12-13] MEDS: GABAPENTIN 400 MG CAPSULE PO SCH ×2 (08:22→20:05)
[2019-12-13] MEDS: LIDOCAINE 5% PATCH TRANSDERM SCH (08:30)
[2019-12-13] MEDS: PANTOPRAZOLE 40 MG VIAL IV SCH (08:30)
[2019-12-13] MEDS: hydrALAZINE 20 MG/1 ML VIAL IV SCH ×3 (10:19→20:31)
[2019-12-13] MEDS: ENOXAPARIN 40 MG/0.4 ML SYRINGE SUBCUT SCH (11:25)
[2019-12-13] MEDS ORDERED: FUROSEMIDE 40 MG/4 ML VIAL IV ONE (12:09)
[2019-12-13] MEDS: VANCOMYCIN INJ 1,500 MG in SODIUM CHLORIDE 0.9% 500 ML IV SCH (12:23)
[2019-12-13] MEDS: FAT EMULSION 20% 250 ML IV SCH (15:08)
[2019-12-13] MEDS: TRACE ELEMENTS (5) 1 ML, MULTIVITAMIN INJ 10 ML in AMINO ACIDS/DEXT/LYTES 5-15% 2,000 ML IV SCH (17:42)
[2019-12-14] MEDS: METOPROLOL TARTRATE 5 MG/5 ML VIAL IV SCH ×5 (00:36→23:55)
[2019-12-14] MEDS: ALBUTEROL/IPRATROPIUM 3 ML NEB RESP TX SCH ×7 (01:12→23:00)
[2019-12-14] MEDS: hydrALAZINE 20 MG/1 ML VIAL IV SCH ×4 (04:33→20:41)
[2019-12-14] MEDS: ONDANSETRON 4 MG/2 ML VIAL IV PRN ×4 (04:34→19:12)
[2019-12-14] MEDS: HYDROmorphone 2 MG/1 ML VIAL IV PRN ×5 (04:34→19:13)
[2019-12-14] MEDS: MEROPENEM 500 MG in SODIUM CHLORIDE 0.9% 100 ML IV SCH ×4 (05:53→23:56)
[2019-12-14] MEDS: LEVOTHYROXINE 100 MCG TABLET PO SCH (05:55)
[2019-12-14 06:45] LABS: Calcium 8.3 MG/DL (8.5-10.1); Osmolality,Calculated 281.8 MOS/KG (273-304); Prealbumin 13.4 MG/DL (20-40)
[2019-12-14] MEDS ORDERED: MAGNESIUM SULF RIDER 4 GM in PREMIX 1 EACH IV PRN (09:01)
[2019-12-14] MEDS ORDERED: MAGNESIUM SULF RIDER 2 GM in PREMIX 1 EACH IV PRN (09:01)
[2019-12-14] MEDS: GABAPENTIN 400 MG CAPSULE PO SCH ×2 (09:22→20:41)
[2019-12-14] MEDS: SIMETHICONE CHEW 80 MG TABLET PO SCH ×3 (09:22→18:24)
[2019-12-14] MEDS: PANTOPRAZOLE 40 MG VIAL IV SCH ×2 (09:29→20:41)
[2019-12-14] MEDS: LIDOCAINE 5% PATCH TRANSDERM SCH (09:29)
[2019-12-14] MEDS ORDERED: FUROSEMIDE 40 MG/4 ML VIAL IV SCH (11:17)
[2019-12-14] MEDS: FUROSEMIDE 40 MG/4 ML VIAL IV SCH ×2 (11:53→23:50)
[2019-12-14] MEDS: ENOXAPARIN 40 MG/0.4 ML SYRINGE SUBCUT SCH (11:54)
[2019-12-14] MEDS: ONDANSETRON 4 MG TABLET PO PRN ×2 (11:54→16:13)
[2019-12-14] MEDS ORDERED: FLUCONAZOLE INJ 200 MG in PREMIX 1 EACH IV ONE (13:00)
[2019-12-14] MEDS: VANCOMYCIN INJ 1,500 MG in SODIUM CHLORIDE 0.9% 500 ML IV SCH (14:41)
[2019-12-14] MEDS: POTASSIUM CHLORIDE 20 MEQ PACK PO SCH (14:41)
[2019-12-14] MEDS: TRACE ELEMENTS (5) 1 ML, MULTIVITAMIN INJ 10 ML in AMINO ACIDS/DEXT/LYTES 5-15% 2,000 ML IV SCH (16:12)
[2019-12-15] MEDS: ALBUTEROL/IPRATROPIUM 3 ML NEB RESP TX SCH ×5 (02:06→19:15)
[2019-12-15] MEDS: hydrALAZINE 20 MG/1 ML VIAL IV SCH ×4 (03:28→20:55)
[2019-12-15] MEDS: ONDANSETRON 4 MG/2 ML VIAL IV PRN ×4 (03:28→18:39)
[2019-12-15] MEDS: MEROPENEM 500 MG in SODIUM CHLORIDE 0.9% 100 ML IV SCH ×3 (05:30→18:45)
[2019-12-15] MEDS: METOPROLOL TARTRATE 5 MG/5 ML VIAL IV SCH ×3 (05:30→18:45)
[2019-12-15] MEDS: LEVOTHYROXINE 100 MCG TABLET PO SCH (05:30)
[2019-12-15] MEDS: HYDROmorphone 2 MG/1 ML VIAL IV PRN ×4 (05:35→18:39)
[2019-12-15 06:16] LABS: Basophils % 0.5 % (0.0-0.8); Hematocrit 29.7 VOL% (35.7-47.0); Hemoglobin 9.1 GM/DL (12.0-16.0); Immature Granulocytes % 1.2 %; Immature Granulocytes Absolute 0.09 #; Lymphocytes # 0.9 10*3/uL (1.4-4.0); Lymphocytes % 11.4 % (21.3-54.2); Mean Corpuscular HGB Conc 30.6 GM/DL (32-36); Mean Corpuscular Volume 103.8 FL (87-102); Monocytes % 17.8 % (1.7-12.7); Neutrophils % 69.1 % (38.7-73.9); Platelet Count 234 T/CUMM (130-400); Red Blood Count 2.86 MC/CUMM (3.8-5.5); Red Cell Distribution Width 14.8 % (9.3-17.3); White Blood Count 7.5 T/CUMM (4-12)
[2019-12-15 06:39] LABS: Calcium 8.2 MG/DL (8.5-10.1); Osmolality,Calculated 284.8 MOS/KG (273-304)
[2019-12-15 06:48] LABS: Band Neutrophils 8 % (0-10); Lymphocytes 11 % (20-55); Myelocytes 1 %; Platelet Estimate Normal; Segmented Neutrophils 63 % (50-85); Total Cells Counted 100
[2019-12-15 06:49] LABS: Anisocytosis 1+; Macrocytosis 2+; Poikilocytosis Slight
[2019-12-15 07:07] LABS: Calcium 8.1 MG/DL (8.5-10.1); Osmolality,Calculated 285.7 MOS/KG (273-304)
[2019-12-15] MEDS: GABAPENTIN 400 MG CAPSULE PO SCH ×2 (08:34→20:23)
[2019-12-15] MEDS: SIMETHICONE CHEW 80 MG TABLET PO SCH ×3 (08:34→18:33)
[2019-12-15] MEDS: LIDOCAINE 5% PATCH TRANSDERM SCH (08:35)
[2019-12-15] MEDS: PANTOPRAZOLE 40 MG VIAL IV SCH ×2 (08:36→20:23)
[2019-12-15] MEDS: POTASSIUM CHLORIDE 20 MEQ PACK PO SCH (08:37)
[2019-12-15] MEDS ORDERED: POTASSIUM CHLORIDE RIDER 20 MEQ in PREMIX 1 EACH IV SCH (10:00)
[2019-12-15] MEDS: POTASSIUM CHLORIDE RIDER 10 MEQ in PREMIX 1 EACH IV SCH ×4 (10:09→17:22)
[2019-12-15] MEDS: ENOXAPARIN 40 MG/0.4 ML SYRINGE SUBCUT SCH (12:54)
[2019-12-15] MEDS: VANCOMYCIN INJ 1,500 MG in SODIUM CHLORIDE 0.9% 500 ML IV SCH (12:56)
[2019-12-15] MEDS: FUROSEMIDE 40 MG/4 ML VIAL IV SCH ×2 (14:26→22:19)
[2019-12-15] MEDS: FAT EMULSION 20% 250 ML IV SCH (14:31)
[2019-12-15] MEDS: FLUCONAZOLE INJ 100 MG in IV BAG 1 EACH IV SCH (15:41)
[2019-12-16] MEDS: ALBUTEROL/IPRATROPIUM 3 ML NEB RESP TX SCH ×7 (00:05→23:54)
[2019-12-16] MEDS: METOPROLOL TARTRATE 5 MG/5 ML VIAL IV SCH ×4 (01:07→17:10)
[2019-12-16] MEDS: MEROPENEM 500 MG in SODIUM CHLORIDE 0.9% 100 ML IV SCH ×4 (01:08→17:38)
[2019-12-16] MEDS: hydrALAZINE 20 MG/1 ML VIAL IV SCH ×4 (04:23→21:33)
[2019-12-16] MEDS: LEVOTHYROXINE 100 MCG TABLET PO SCH (06:40)
[2019-12-16] MEDS: FUROSEMIDE 40 MG/4 ML VIAL IV SCH ×2 (06:40→13:36)
[2019-12-16] MEDS: PANTOPRAZOLE 40 MG VIAL IV SCH ×2 (09:13→21:10)
[2019-12-16] MEDS: LIDOCAINE 5% PATCH TRANSDERM SCH (09:15)
[2019-12-16] MEDS: SIMETHICONE CHEW 80 MG TABLET PO SCH ×3 (09:16→17:37)
[2019-12-16] MEDS: GABAPENTIN 400 MG CAPSULE PO SCH ×2 (09:16→21:10)
[2019-12-16 10:13] LABS: Basophils # 0.1 10*3/uL (0.0-0.2); Basophils % 0.7 % (0.0-0.8); Eosinophils % 0.1 % (0.00-10.9); Hematocrit 28.7 VOL% (35.7-47.0); Hemoglobin 8.9 GM/DL (12.0-16.0); Immature Granulocytes % 0.9 %; Immature Granulocytes Absolute 0.06 #; Lymphocytes # 0.9 10*3/uL (1.4-4.0); Lymphocytes % 12.4 % (21.3-54.2); Mean Corpuscular Volume 101.4 FL (87-102); Mean Platelet Volume 9.9 FL (9.6-12.0); Monocytes % 12.9 % (1.7-12.7); Platelet Count 230 T/CUMM (130-400); Red Blood Count 2.83 MC/CUMM (3.8-5.5); Red Cell Distribution Width 14.8 % (9.3-17.3); White Blood Count 6.8 T/CUMM (4-12)
[2019-12-16 10:23] LABS: Calcium 8.3 MG/DL (8.5-10.1); Osmolality,Calculated 279.1 MOS/KG (273-304)
[2019-12-16] MEDS ORDERED: POTASSIUM CHLORIDE RIDER 10 MEQ in PREMIX 1 EACH IV PRN (11:23)
[2019-12-16] MEDS: ENOXAPARIN 40 MG/0.4 ML SYRINGE SUBCUT SCH (12:00)
[2019-12-16] MEDS: VANCOMYCIN INJ 1,500 MG in SODIUM CHLORIDE 0.9% 500 ML IV SCH (13:36)
[2019-12-16] MEDS ORDERED: methylPREDNISolone SOD SUC 40 MG/1 ML VIAL IV ONE (15:13)
[2019-12-16] MEDS: ONDANSETRON 4 MG/2 ML VIAL IV PRN ×2 (15:21→21:10)
[2019-12-16] MEDS: HYDROmorphone 2 MG/1 ML VIAL IV PRN ×2 (15:24→21:10)
[2019-12-16] MEDS: FLUCONAZOLE INJ 100 MG in IV BAG 1 EACH IV SCH (15:28)
[2019-12-17] MEDS: METOPROLOL TARTRATE 5 MG/5 ML VIAL IV SCH ×4 (00:37→17:39)
[2019-12-17] MEDS: FUROSEMIDE 40 MG/4 ML VIAL IV SCH ×2 (00:59→12:51)
[2019-12-17] MEDS: ONDANSETRON 4 MG TABLET PO PRN (01:00)
[2019-12-17] MEDS: MEROPENEM 500 MG in SODIUM CHLORIDE 0.9% 100 ML IV SCH ×4 (01:00→17:45)
[2019-12-17] MEDS: hydrALAZINE 20 MG/1 ML VIAL IV SCH ×4 (03:12→20:56)
[2019-12-17] MEDS: ALBUTEROL/IPRATROPIUM 3 ML NEB RESP TX SCH ×6 (03:25→23:11)
[2019-12-17] MEDS: HYDROmorphone 2 MG/1 ML VIAL IV PRN ×3 (03:44→15:36)
[2019-12-17] MEDS: ONDANSETRON 4 MG/2 ML VIAL IV PRN ×3 (04:34→15:36)
[2019-12-17] MEDS: LEVOTHYROXINE 100 MCG TABLET PO SCH (06:35)
[2019-12-17] MEDS: GABAPENTIN 400 MG CAPSULE PO SCH ×2 (09:02→20:55)
[2019-12-17] MEDS: LIDOCAINE 5% PATCH TRANSDERM SCH (09:02)
[2019-12-17] MEDS: SIMETHICONE CHEW 80 MG TABLET PO SCH ×3 (09:02→17:44)
[2019-12-17] MEDS: PANTOPRAZOLE 40 MG VIAL IV SCH ×2 (09:03→20:56)
[2019-12-17 10:57] LABS: Calcium 8.3 MG/DL (8.5-10.1)
[2019-12-17] MEDS: ENOXAPARIN 40 MG/0.4 ML SYRINGE SUBCUT SCH (12:18)
[2019-12-17] MEDS: VANCOMYCIN INJ 1,500 MG in SODIUM CHLORIDE 0.9% 500 ML IV SCH (12:52)
[2019-12-17] MEDS: FAT EMULSION 20% 250 ML IV SCH (15:45)
[2019-12-17] MEDS: FLUCONAZOLE INJ 100 MG in IV BAG 1 EACH IV SCH (15:46)
[2019-12-17] MEDS: MONTELUKAST 10 MG TABLET PO SCH (20:55)
[2019-12-17] MEDS: CETIRIZINE 10 MG TABLET PO SCH (20:55)
[2019-12-17] MEDS: clonazePAM 0.5 MG TABLET PO SCH (20:56)
[2019-12-17] MEDS ORDERED: FUROSEMIDE 20 MG/2 ML VIAL IV PRN (21:00)
[2019-12-18] MEDS: METOPROLOL TARTRATE 5 MG/5 ML VIAL IV SCH ×2 (00:36→06:10)
[2019-12-18] MEDS: MEROPENEM 500 MG in SODIUM CHLORIDE 0.9% 100 ML IV SCH ×2 (00:38→06:10)
[2019-12-18] MEDS: FUROSEMIDE 40 MG/4 ML VIAL IV SCH (00:38)
[2019-12-18] MEDS: ALBUTEROL/IPRATROPIUM 3 ML NEB RESP TX SCH ×5 (03:27→20:15)
[2019-12-18] MEDS: hydrALAZINE 20 MG/1 ML VIAL IV SCH ×3 (04:03→15:47)
[2019-12-18 05:57] LABS: Basophils % 0.4 % (0.0-0.8); Hemoglobin 8.6 GM/DL (12.0-16.0); Immature Granulocytes % 0.7 %; Immature Granulocytes Absolute 0.05 #; Lymphocytes # 1.1 10*3/uL (1.4-4.0); Lymphocytes % 15.7 % (21.3-54.2); Mean Corpuscular HGB Conc 31.9 GM/DL (32-36); Mean Corpuscular Volume 101.5 FL (87-102); Mean Platelet Volume 9.9 FL (9.6-12.0); Monocytes % 15.6 % (1.7-12.7); Neutrophils % 67.6 % (38.7-73.9); Platelet Count 241 T/CUMM (130-400); Red Blood Count 2.66 MC/CUMM (3.8-5.5); White Blood Count 6.8 T/CUMM (4-12)
[2019-12-18 06:04] LABS: Calcium 8.1 MG/DL (8.5-10.1); Osmolality,Calculated 282.8 MOS/KG (273-304)
[2019-12-18] MEDS: LEVOTHYROXINE 100 MCG TABLET PO SCH (06:09)
[2019-12-18] MEDS: HYDROmorphone 2 MG/1 ML VIAL IV PRN ×4 (06:09→21:14)
[2019-12-18] MEDS: ONDANSETRON 4 MG/2 ML VIAL IV PRN ×3 (06:14→21:18)
[2019-12-18 06:38] LABS: Band Neutrophils 2 % (0-10); Lymphocytes 18 % (20-55); Metamyelocytes 2 %; Segmented Neutrophils 69 % (50-85); Total Cells Counted 100
[2019-12-18 06:39] LABS: Hypochromasia 1+; Macrocytosis 1+; Ovalocytes Slight; Platelet Estimate Normal
[2019-12-18] MEDS: GABAPENTIN 400 MG CAPSULE PO SCH ×2 (08:41→21:12)
[2019-12-18] MEDS: CETIRIZINE 10 MG TABLET PO SCH (08:41)
[2019-12-18] MEDS: PANTOPRAZOLE 40 MG TABLET PO SCH ×2 (08:41→21:13)
[2019-12-18] MEDS: METOPROLOL TARTRATE 25 MG TABLET PO SCH ×2 (08:41→21:13)
[2019-12-18] MEDS: SIMETHICONE CHEW 80 MG TABLET PO SCH ×3 (08:42→17:21)
[2019-12-18] MEDS: LIDOCAINE 5% PATCH TRANSDERM SCH (08:42)
[2019-12-18] MEDS: RIVAROXABAN 10 MG TABLET PO SCH (08:47)
[2019-12-18] MEDS: ASPIRIN EC 81 MG TABLET PO SCH (08:47)
[2019-12-18] MEDS: FLUCONAZOLE INJ 100 MG in IV BAG 1 EACH IV SCH (15:37)
[2019-12-18] MEDS: MONTELUKAST 10 MG TABLET PO SCH (21:13)
[2019-12-18] MEDS: clonazePAM 0.5 MG TABLET PO SCH (21:25)
[2019-12-19] MEDS: ALBUTEROL/IPRATROPIUM 3 ML NEB RESP TX SCH ×4 (00:29→11:16)
[2019-12-19] MEDS: hydrALAZINE 20 MG/1 ML VIAL IV SCH ×3 (02:30→09:36)
[2019-12-19 05:09] LABS: Calcium 7.9 MG/DL (8.5-10.1); Osmolality,Calculated 284.5 MOS/KG (273-304)
[2019-12-19] MEDS: LEVOTHYROXINE 100 MCG TABLET PO SCH (06:12)
[2019-12-19] MEDS ORDERED: POTASSIUM CHLORIDE 20 MEQ TABLET PO ONE (07:37)
[2019-12-19] MEDS: LIDOCAINE 5% PATCH TRANSDERM SCH (08:20)
[2019-12-19] MEDS: RIVAROXABAN 10 MG TABLET PO SCH (08:21)
[2019-12-19] MEDS: PANTOPRAZOLE 40 MG TABLET PO SCH (08:21)
[2019-12-19] MEDS: GABAPENTIN 400 MG CAPSULE PO SCH (08:21)
[2019-12-19] MEDS: SIMETHICONE CHEW 80 MG TABLET PO SCH ×2 (08:22→13:46)
[2019-12-19] MEDS: ASPIRIN EC 81 MG TABLET PO SCH (08:22)
[2019-12-19] MEDS: CETIRIZINE 10 MG TABLET PO SCH (08:22)
[2019-12-19] MEDS: METOPROLOL TARTRATE 25 MG TABLET PO SCH (08:22)
[2019-12-19] MEDS: HYDROmorphone 2 MG/1 ML VIAL IV PRN ×2 (09:34→13:47)
[2019-12-19 12:32] VITALS: BP 153/87
[2019-12-19] MEDS: ONDANSETRON 4 MG/2 ML VIAL IV PRN (13:47)
== END 2019-12-19 14:15 | disposition swing bed (61) | DRG 388 ==
LOC: EDUNIT# → EDBD → N.ED 08:05 → N.EDINP 13:51 → SUATTDRO 13:51 → N.3E 15:23 → N.4E 12-05 10:48 → N.ICU 12-08 12:30 → N.4E 12-09 15:31
PROVIDERS: ADMIT Family Medicine; ATTEND Internal Medicine

== ENCOUNTER 2019-12-30 13:16 | Inpatient (IN) ==
[2019-12-30] MEDS ORDERED: FUROSEMIDE 100 MG/10 ML VIAL IV STA (13:45)
[2019-12-30] MEDS ORDERED: ONDANSETRON 4 MG/2 ML VIAL ONE (13:51)
[2019-12-30 14:36] LABS: Basophils # 0.1 10*3/uL (0.0-0.2); Basophils % 0.5 % (0.0-0.8); Eosinophils # 0.1 10*3/uL (0.0-0.87); Eosinophils % 0.3 % (0.00-10.9); Hematocrit 32.5 VOL% (35.7-47.0); Immature Granulocytes % 0.4 %; Immature Granulocytes Absolute 0.07 #; Lymphocytes # 1.7 10*3/uL (1.4-4.0); Lymphocytes % 10.5 % (21.3-54.2); Mean Corpuscular HGB Conc 30.8 GM/DL (32-36); Mean Corpuscular Volume 100.9 FL (87-102); Mean Platelet Volume 10.2 FL (9.6-12.0); Monocytes % 15.1 % (1.7-12.7); Neutrophils % 73.2 % (38.7-73.9); Platelet Count 264 T/CUMM (130-400); Red Blood Count 3.22 MC/CUMM (3.8-5.5); Red Cell Distribution Width 14.4 % (9.3-17.3); White Blood Count 16.6 T/CUMM (4-12)
[2019-12-30 14:41] LABS: Apearance,Urine CLEAR (Clear); Bacteria,Urine Occasional /HPF (Few); Bilirubin,Urine Negative (Negative); Blood, Urine Negative (Negative); Glucose,Urine (UA) Negative (Negative); Hyaline Casts,Urine 9 /LPF (0-3); Ketones,Urine Negative (Negative); Mucus,Urine Occasional /LPF (Occasional); Nitrite,Urine Negative (Negative); Protein,Urine Negative; RBC,Urine <1 /HPF (0-4); Urine Color Yellow (Yellow); Urine Specific Gravity 1.008 (1.001-1.035); Urine Urobilinogen < 2.0 EU/DL (0.2-1.0); WBC,Urine 1 /HPF (0-6)
[2019-12-30 15:03] LABS: Calcium 8.1 MG/DL (8.5-10.1); Osmolality,Calculated 265.5 MOS/KG (273-304)
[2019-12-30] MEDS ORDERED: DOCUSATE SODIUM 100 MG CAPSULE PO PRN (16:56)
[2019-12-30] MEDS ORDERED: DEXTROSE 50% 25 GM/50 ML VIAL IV PRN (16:56)
[2019-12-30] MEDS ORDERED: LACTULOSE 20 GM/30 ML UDCUP PO PRN (16:56)
[2019-12-30] MEDS ORDERED: POTASSIUM CHLORIDE RIDER 10 MEQ in PREMIX 1 EACH IV PRN (16:56)
[2019-12-30] MEDS ORDERED: POTASSIUM CHLORIDE 20 MEQ TABLET PO PRN (16:56)
[2019-12-30] MEDS ORDERED: MAGNESIUM SULF RIDER 2 GM in PREMIX 1 EACH IV PRN (16:56)
[2019-12-30] MEDS ORDERED: MAGNESIUM SULF RIDER 4 GM in PREMIX 1 EACH IV PRN (16:56)
[2019-12-30] MEDS ORDERED: ENOXAPARIN 30 MG/0.3 ML SYRINGE SUBCUT SCH (17:00)
[2019-12-30] MEDS ORDERED: VANCOMYCIN INJ 1,000 MG in SODIUM CHLORIDE 0.9% 250 ML IV SCH (17:30)
[2019-12-30] MEDS: MEROPENEM 500 MG in SODIUM CHLORIDE 0.9% 100 ML IV SCH (17:49)
[2019-12-30] MEDS: FUROSEMIDE 40 MG/4 ML VIAL IV SCH (21:13)
[2019-12-30] MEDS: MAGNESIUM OXIDE 400 MG TABLET PO SCH (21:14)
[2019-12-30] MEDS: METOPROLOL TARTRATE 25 MG TABLET PO SCH (21:14)
[2019-12-30] MEDS: clonazePAM 0.5 MG TABLET PO SCH (21:14)
[2019-12-30] MEDS: ATORVASTATIN 40 MG TABLET PO SCH (21:14)
[2019-12-30] MEDS: GABAPENTIN 400 MG CAPSULE PO SCH (21:14)
[2019-12-30] MEDS: VANCOMYCIN INJ 1,750 MG in SODIUM CHLORIDE 0.9% 500 ML IV SCH (21:14)
[2019-12-30] MEDS: FERROUS SULFATE 325 MG TABLET PO SCH (21:14)
[2019-12-31 05:15] LABS: Basophils # 0.1 10*3/uL (0.0-0.2); Basophils % 0.5 % (0.0-0.8); Eosinophils # 0.1 10*3/uL (0.0-0.87); Eosinophils % 0.4 % (0.00-10.9); Hematocrit 29.5 VOL% (35.7-47.0); Hemoglobin 9.2 GM/DL (12.0-16.0); Immature Granulocytes % 0.4 %; Immature Granulocytes Absolute 0.05 #; Lymphocytes # 0.8 10*3/uL (1.4-4.0); Lymphocytes % 6.4 % (21.3-54.2); Mean Corpuscular HGB Conc 31.2 GM/DL (32-36); Mean Corpuscular Volume 99.3 FL (87-102); Mean Platelet Volume 9.9 FL (9.6-12.0); Neutrophils % 81.3 % (38.7-73.9); Platelet Count 239 T/CUMM (130-400); Red Blood Count 2.97 MC/CUMM (3.8-5.5); Red Cell Distribution Width 14.5 % (9.3-17.3); White Blood Count 13.1 T/CUMM (4-12)
[2019-12-31] MEDS: MEROPENEM 500 MG in SODIUM CHLORIDE 0.9% 100 ML IV SCH ×2 (05:41→16:45)
[2019-12-31] MEDS: LEVOTHYROXINE 100 MCG TABLET PO SCH (05:42)
[2019-12-31 05:47] LABS: Albumin 2.1 G/DL (3.4-5.0); Bilirubin,Total 0.8 MG/DL (0.2-1.0); Risk Ratio 3.32; Thyroid Stimulating Hormone 2.32 uIU/ml (0.358-3.74); VLDL CHOLESTEROL 16.2 MG/DL
[2019-12-31] MEDS: FERROUS SULFATE 325 MG TABLET PO SCH ×2 (08:48→20:08)
[2019-12-31] MEDS: GABAPENTIN 400 MG CAPSULE PO SCH ×2 (08:48→20:08)
[2019-12-31] MEDS: RIVAROXABAN 10 MG TABLET PO SCH (08:48)
[2019-12-31] MEDS: MAGNESIUM OXIDE 400 MG TABLET PO SCH ×3 (08:49→20:08)
[2019-12-31] MEDS: PANTOPRAZOLE 40 MG TABLET PO SCH (08:50)
[2019-12-31] MEDS: FUROSEMIDE 40 MG/4 ML VIAL IV SCH ×2 (08:51→15:51)
[2019-12-31] MEDS: ASPIRIN EC 81 MG TABLET PO SCH (08:51)
[2019-12-31] MEDS: CETIRIZINE 10 MG TABLET PO SCH (08:51)
[2019-12-31] MEDS: MOMETASONE 50 MCG NASAL SPRAY 17 GM BOTTLE BOTH NARES SCH (08:55)
[2019-12-31] MEDS: POLYETHYLENE GLYCOL POWDER 17 GM PACK PO SCH (08:55)
[2019-12-31] MEDS: METOPROLOL TARTRATE 25 MG TABLET PO SCH ×2 (08:56→20:08)
[2019-12-31] MEDS: VANCOMYCIN INJ 1,750 MG in SODIUM CHLORIDE 0.9% 500 ML IV SCH (20:07)
[2019-12-31] MEDS: ATORVASTATIN 40 MG TABLET PO SCH (20:08)
[2019-12-31] MEDS: clonazePAM 0.5 MG TABLET PO SCH (20:18)
[2020-01-01 04:20] LABS: Albumin 1.8 G/DL (3.4-5.0); Bilirubin,Total 1.4 MG/DL (0.2-1.0); Calcium 7.6 MG/DL (8.5-10.1); Osmolality,Calculated 271.1 MOS/KG (273-304); Total Protein 4.4 G/DL (6.4-8.3)
[2020-01-01] MEDS: LEVOTHYROXINE 100 MCG TABLET PO SCH (05:04)
[2020-01-01] MEDS: MEROPENEM 500 MG in SODIUM CHLORIDE 0.9% 100 ML IV SCH ×2 (05:04→17:16)
[2020-01-01] MEDS ORDERED: oxyCODONE/ACETAMINOPHEN 5-325 MG TABLET PO PRN (09:10)
[2020-01-01] MEDS ORDERED: BENZONATATE 100 MG CAPSULE PO PRN (09:10)
[2020-01-01] MEDS: FUROSEMIDE 40 MG/4 ML VIAL IV SCH ×2 (09:55→17:14)
[2020-01-01] MEDS: CETIRIZINE 10 MG TABLET PO SCH (09:55)
[2020-01-01] MEDS: FERROUS SULFATE 325 MG TABLET PO SCH ×2 (09:55→21:15)
[2020-01-01] MEDS: RIVAROXABAN 10 MG TABLET PO SCH (09:55)
[2020-01-01] MEDS: MAGNESIUM OXIDE 400 MG TABLET PO SCH ×3 (09:55→21:14)
[2020-01-01] MEDS: MOMETASONE 50 MCG NASAL SPRAY 17 GM BOTTLE BOTH NARES SCH (09:56)
[2020-01-01] MEDS: ASPIRIN EC 81 MG TABLET PO SCH (09:56)
[2020-01-01] MEDS: METOPROLOL TARTRATE 25 MG TABLET PO SCH ×2 (09:56→21:15)
[2020-01-01] MEDS: PANTOPRAZOLE 40 MG TABLET PO SCH (09:56)
[2020-01-01] MEDS: GABAPENTIN 400 MG CAPSULE PO SCH ×2 (09:56→21:15)
[2020-01-01] MEDS: POLYETHYLENE GLYCOL POWDER 17 GM PACK PO SCH (09:58)
[2020-01-01] MEDS ORDERED: POTASSIUM CHLORIDE 20 MEQ TABLET PO ONE (10:14)
[2020-01-01] MEDS: oxyCODONE/ACETAMINOPHEN 5-325 MG TABLET PO PRN ×2 (10:21→17:20)
[2020-01-01] MEDS: DESITIN 4OZ/NYSTATIN 15 GRAM MIXTURE PASTE TOP SCH ×2 (17:14→21:15)
[2020-01-01] MEDS ORDERED: TUBERCULIN SKIN TEST 0.1 ML SYRINGE INTRADERM ONE (19:11)
[2020-01-01] MEDS ORDERED: CHLORPHENIRAMINE MALEATE 4 MG PO SCH (21:00)
[2020-01-01] MEDS: COENZYME Q10 100 MG CAPSULE PO SCH (21:14)
[2020-01-01] MEDS: MONTELUKAST 10 MG TABLET PO SCH (21:15)
[2020-01-01] MEDS: clonazePAM 0.5 MG TABLET PO SCH ×2 (21:15)
[2020-01-01] MEDS: ATORVASTATIN 40 MG TABLET PO SCH (21:15)
[2020-01-01] MEDS: VANCOMYCIN INJ 1,750 MG in SODIUM CHLORIDE 0.9% 500 ML IV SCH (21:31)
[2020-01-02 04:11] LABS: Basophils # 0.1 10*3/uL (0.0-0.2); Basophils % 1.1 % (0.0-0.8); Eosinophils # 0.2 10*3/uL (0.0-0.87); Eosinophils % 2.9 % (0.00-10.9); Hemoglobin 8.6 GM/DL (12.0-16.0); Immature Granulocytes % 0.5 %; Immature Granulocytes Absolute 0.04 #; Lymphocytes % 23.8 % (21.3-54.2); Mean Corpuscular HGB Conc 30.7 GM/DL (32-36); Mean Platelet Volume 9.5 FL (9.6-12.0); Monocytes % 18.4 % (1.7-12.7); Neutrophils % 53.3 % (38.7-73.9); Platelet Count 232 T/CUMM (130-400); Red Cell Distribution Width 14.6 % (9.3-17.3); White Blood Count 8.4 T/CUMM (4-12)
[2020-01-02 04:42] LABS: Eosinophils 1 % (0-10); Lymphocytes 26 % (20-55); Platelet Estimate Adequate; Segmented Neutrophils 65 % (50-85); Total Cells Counted 100
[2020-01-02 04:44] LABS: Hypochromasia 1+
[2020-01-02 04:46] LABS: Calcium 7.5 MG/DL (8.5-10.1); Osmolality,Calculated 269.1 MOS/KG (273-304)
[2020-01-02 04:51] LABS: Albumin 1.8 G/DL (3.4-5.0); Bilirubin,Total 1.2 MG/DL (0.2-1.0); Calcium 7.4 MG/DL (8.5-10.1); Osmolality,Calculated 272.8 MOS/KG (273-304); Total Protein 4.4 G/DL (6.4-8.3)
[2020-01-02] MEDS: MEROPENEM 500 MG in SODIUM CHLORIDE 0.9% 100 ML IV SCH (05:46)
[2020-01-02] MEDS: LEVOTHYROXINE 100 MCG TABLET PO SCH (05:57)
[2020-01-02] MEDS: ONDANSETRON 4 MG/2 ML VIAL IV PRN (09:34)
[2020-01-02] MEDS: FUROSEMIDE 40 MG/4 ML VIAL IV SCH ×2 (09:47→16:22)
[2020-01-02] MEDS: PANTOPRAZOLE 40 MG TABLET PO SCH (09:48)
[2020-01-02] MEDS: oxyCODONE/ACETAMINOPHEN 5-325 MG TABLET PO PRN (09:48)
[2020-01-02] MEDS: CETIRIZINE 10 MG TABLET PO SCH (09:48)
[2020-01-02] MEDS: OXYBUTYNIN XL 10 MG TABLET PO SCH (09:48)
[2020-01-02] MEDS: MULTIVITAMIN (CENTRUM) TABLET PO SCH (09:48)
[2020-01-02] MEDS: METOPROLOL TARTRATE 25 MG TABLET PO SCH ×2 (09:48→21:14)
[2020-01-02] MEDS: CHOLECALCIFEROL 1,000 UNIT TABLET PO SCH (09:48)
[2020-01-02] MEDS: FERROUS SULFATE 325 MG TABLET PO SCH ×2 (09:48→21:15)
[2020-01-02] MEDS: GABAPENTIN 400 MG CAPSULE PO SCH ×2 (09:48→21:13)
[2020-01-02] MEDS: CYANOCOBALAMIN 500 MCG TABLET PO SCH (09:49)
[2020-01-02] MEDS: ASCORBIC ACID 500 MG TABLET PO SCH (09:49)
[2020-01-02] MEDS: MAGNESIUM OXIDE 400 MG TABLET PO SCH ×3 (09:49→21:14)
[2020-01-02] MEDS: LEFLUNOMIDE 10 MG TABLET PO SCH (09:49)
[2020-01-02] MEDS: COENZYME Q10 100 MG CAPSULE PO SCH ×2 (09:49→21:13)
[2020-01-02] MEDS: ASPIRIN EC 81 MG TABLET PO SCH (09:49)
[2020-01-02] MEDS: RIVAROXABAN 10 MG TABLET PO SCH (09:49)
[2020-01-02] MEDS: CALCIUM (CARBONATE) 500 MG TABLET PO SCH (09:49)
[2020-01-02] MEDS: POLYETHYLENE GLYCOL POWDER 17 GM PACK PO SCH (09:55)
[2020-01-02] MEDS: DESITIN 4OZ/NYSTATIN 15 GRAM MIXTURE PASTE TOP SCH ×2 (09:55→21:16)
[2020-01-02] MEDS: POTASSIUM CHLORIDE 20 MEQ TABLET PO SCH ×3 (10:05→16:22)
[2020-01-02] MEDS: MOMETASONE 50 MCG NASAL SPRAY 17 GM BOTTLE BOTH NARES SCH (10:05)
[2020-01-02] MEDS: ALBUTEROL/IPRATROPIUM 3 ML NEB RESP TX SCH ×2 (12:00→20:05)
[2020-01-02] MEDS: GLUCOSAMINE 500 MG TABLET PO SCH (12:08)
[2020-01-02] MEDS ORDERED: ALBUMIN 25% 50 GM in PREMIX 1 EACH IV ONE (16:00)
[2020-01-02] MEDS ORDERED: TRACE ELEMENTS (5) 1 ML, MULTIVITAMIN INJ 10 ML in AMINO ACIDS/DEXT/LYTES 5-15% 1,000 ML IV SCH (17:00)
[2020-01-02] MEDS: FAT EMULSION 20% 250 ML IV SCH (18:14)
[2020-01-02] MEDS: ATORVASTATIN 40 MG TABLET PO SCH (21:14)
[2020-01-02] MEDS: clonazePAM 0.5 MG TABLET PO SCH ×2 (21:14→21:16)
[2020-01-02] MEDS: MONTELUKAST 10 MG TABLET PO SCH (21:15)
[2020-01-03] MEDS: ALBUTEROL/IPRATROPIUM 3 ML NEB RESP TX SCH ×4 (00:43→19:21)
[2020-01-03 04:17] LABS: Basophils # 0.1 10*3/uL (0.0-0.2); Basophils % 0.9 % (0.0-0.8); Eosinophils # 0.2 10*3/uL (0.0-0.87); Eosinophils % 2.3 % (0.00-10.9); Hematocrit 28.9 VOL% (35.7-47.0); Immature Granulocytes % 0.3 %; Immature Granulocytes Absolute 0.03 #; Lymphocytes # 2.1 10*3/uL (1.4-4.0); Lymphocytes % 23.9 % (21.3-54.2); Mean Corpuscular HGB Conc 31.1 GM/DL (32-36); Mean Corpuscular Volume 99.7 FL (87-102); Mean Platelet Volume 9.4 FL (9.6-12.0); Monocytes % 17.8 % (1.7-12.7); Neutrophils % 54.8 % (38.7-73.9); Platelet Count 221 T/CUMM (130-400); Red Cell Distribution Width 14.7 % (9.3-17.3); White Blood Count 8.8 T/CUMM (4-12)
[2020-01-03 04:40] LABS: Band Neutrophils 6 % (0-10); Eosinophils 3 % (0-10); Lymphocytes 22 % (20-55); Segmented Neutrophils 59 % (50-85); Total Cells Counted 100
[2020-01-03 04:41] LABS: Hypochromasia 1+; Macrocytosis Slight; Polychromasia Slight
[2020-01-03 04:42] LABS: Atypical Lymphocytes Few
[2020-01-03] MEDS: ONDANSETRON 4 MG/2 ML VIAL IV PRN ×4 (04:49→20:25)
[2020-01-03 04:54] LABS: Calcium 7.9 MG/DL (8.5-10.1); Osmolality,Calculated 280.5 MOS/KG (273-304)
[2020-01-03] MEDS: oxyCODONE/ACETAMINOPHEN 5-325 MG TABLET PO PRN ×2 (05:20→16:26)
[2020-01-03 06:47] LABS: Calcium 7.8 MG/DL (8.5-10.1); Osmolality,Calculated 276.8 MOS/KG (273-304)
[2020-01-03] MEDS: LEVOTHYROXINE 100 MCG TABLET PO SCH (07:02)
[2020-01-03] MEDS: FUROSEMIDE 40 MG/4 ML VIAL IV SCH ×2 (09:02→15:15)
[2020-01-03] MEDS: LEFLUNOMIDE 10 MG TABLET PO SCH (09:04)
[2020-01-03] MEDS: COENZYME Q10 100 MG CAPSULE PO SCH ×2 (09:04→20:24)
[2020-01-03] MEDS: CETIRIZINE 10 MG TABLET PO SCH (09:04)
[2020-01-03] MEDS: CALCIUM (CARBONATE) 500 MG TABLET PO SCH (09:05)
[2020-01-03] MEDS: CYANOCOBALAMIN 500 MCG TABLET PO SCH (09:05)
[2020-01-03] MEDS: MULTIVITAMIN (CENTRUM) TABLET PO SCH (09:05)
[2020-01-03] MEDS: OXYBUTYNIN XL 10 MG TABLET PO SCH (09:05)
[2020-01-03] MEDS: METOPROLOL TARTRATE 25 MG TABLET PO SCH ×2 (09:05→20:24)
[2020-01-03] MEDS: MAGNESIUM OXIDE 400 MG TABLET PO SCH ×3 (09:05→20:24)
[2020-01-03] MEDS: FERROUS SULFATE 325 MG TABLET PO SCH ×2 (09:06→20:25)
[2020-01-03] MEDS: GABAPENTIN 400 MG CAPSULE PO SCH ×2 (09:06→20:24)
[2020-01-03] MEDS: PANTOPRAZOLE 40 MG TABLET PO SCH (09:06)
[2020-01-03] MEDS: CHOLECALCIFEROL 1,000 UNIT TABLET PO SCH (09:06)
[2020-01-03] MEDS: ASPIRIN EC 81 MG TABLET PO SCH (09:06)
[2020-01-03] MEDS: ASCORBIC ACID 500 MG TABLET PO SCH (09:07)
[2020-01-03] MEDS: POLYETHYLENE GLYCOL POWDER 17 GM PACK PO SCH (09:07)
[2020-01-03] MEDS: DESITIN 4OZ/NYSTATIN 15 GRAM MIXTURE PASTE TOP SCH (09:07)
[2020-01-03] MEDS: MOMETASONE 50 MCG NASAL SPRAY 17 GM BOTTLE BOTH NARES SCH (09:07)
[2020-01-03] MEDS: GLUCOSAMINE 500 MG TABLET PO SCH (10:54)
[2020-01-03] MEDS: FAT EMULSION 20% 250 ML IV SCH (13:46)
[2020-01-03] MEDS ORDERED: RIVAROXABAN 20 MG TABLET PO SCH (17:00)
[2020-01-03] MEDS ORDERED: TRACE ELEMENTS (5) 1 ML, MULTIVITAMIN INJ 10 ML in AMINO ACIDS/DEXT/LYTES 5-15% 2,000 ML IV SCH (17:00)
[2020-01-03] MEDS: clonazePAM 0.5 MG TABLET PO SCH ×2 (20:23→20:24)
[2020-01-03] MEDS: MONTELUKAST 10 MG TABLET PO SCH (20:23)
[2020-01-03] MEDS: ATORVASTATIN 40 MG TABLET PO SCH (20:25)
[2020-01-03 20:26] VITALS: BP 166/77
== END 2020-01-03 20:35 | DRG 291 ==
LOC: EDBD → EDUNIT# → N.ED 13:16 → N.EDINP 16:56 → N.TELES 18:42
PROVIDERS: ADMIT Internal Medicine; ATTEND Internal Medicine

== ENCOUNTER 2020-06-01 08:41 | Inpatient (IN) ==
[2020-06-01] MEDS ORDERED: SODIUM CHLORIDE 0.9% 500 ML IV STA (09:16)
[2020-06-01 09:56] LABS: Basophils # 0.1 10*3/uL (0.0-0.2); Basophils % 0.4 % (0.0-0.8); Eosinophils # 0.3 10*3/uL (0.0-0.87); Eosinophils % 2.8 % (0.00-10.9); Hematocrit 31.7 VOL% (35.7-47.0); Immature Granulocytes % 0.5 %; Immature Granulocytes Absolute 0.06 #; Lymphocytes # 1.2 10*3/uL (1.4-4.0); Lymphocytes % 9.7 % (21.3-54.2); Mean Corpuscular HGB Conc 31.5 GM/DL (32-36); Mean Corpuscular Volume 101.6 FL (87-102); Mean Platelet Volume 9.1 FL (9.6-12.0); Monocytes % 10.6 % (1.7-12.7); Platelet Count 168 T/CUMM (130-400); Red Blood Count 3.12 MC/CUMM (3.8-5.5); Red Cell Distribution Width 13.7 % (9.3-17.3); White Blood Count 12.3 T/CUMM (4-12)
[2020-06-01 10:15] LABS: Troponin I 0.054 NG/ML (0.00-0.045)
[2020-06-01 10:27] LABS: Albumin 2.8 G/DL (3.4-5.0); Bilirubin,Total 0.6 MG/DL (0.2-1.0); Calcium 8.7 MG/DL (8.5-10.1); Osmolality,Calculated 246.2 MOS/KG (273-304); Total Protein 6.1 G/DL (6.4-8.3)
[2020-06-01 10:36] LABS: Bacteria,Urine Many /HPF (Few); Bilirubin,Urine Negative (Negative); Blood, Urine Small mg/dL (Negative); Glucose,Urine (UA) Negative (Negative); Ketones,Urine Negative (Negative); Nitrite,Urine Negative (Negative); Protein,Urine 100 MG/DL; Urine Appearance CLOUDY (Clear); Urine Color Yellow (Yellow); Urine Specific Gravity 1.011 (1.001-1.035); Urine Urobilinogen < 2.0 EU/DL (0.2-1.0); WBC,Urine 362 /HPF (0-6)
[2020-06-01] MEDS ORDERED: PIPERACILLIN/TAZOBACTAM 3,375 MG in SODIUM CHLORIDE 0.9% 100 ML IV STA (10:57)
[2020-06-01 11:12] LABS: INR 1.2; PT Patient Result 12.6 SECS (9.8-11.9)
[2020-06-01] MEDS ORDERED: BISACODYL 5 MG TABLET PO PRN (12:01)
[2020-06-01] MEDS ORDERED: GLUCAGON 1 MG VIAL IM PRN (12:01)
[2020-06-01] MEDS: SODIUM CHLORIDE 0.9% 1,000 ML IV SCH ×2 (13:10→22:04)
[2020-06-01] MEDS: MEROPENEM 500 MG in SODIUM CHLORIDE 0.9% 100 ML IV SCH ×2 (13:35→18:37)
[2020-06-01] MEDS ORDERED: ENOXAPARIN 40 MG/0.4 ML SYRINGE SUBCUT SCH (14:00)
[2020-06-01 14:18] LABS: Thyroid Stimulating Hormone 4.98 uIU/ml (0.358-3.74)
[2020-06-01 17:03] LABS: Calcium 8.5 MG/DL (8.5-10.1); Osmolality,Calculated 259.2 MOS/KG (273-304)
[2020-06-01 21:38] LABS: Osmolality,Calculated 262.8 MOS/KG (273-304)
[2020-06-01] MEDS ORDERED: KETOROLAC 15 MG/1 ML VIAL IV ONE (21:41)
[2020-06-01] MEDS: ATORVASTATIN 40 MG TABLET PO SCH (22:04)
[2020-06-01] MEDS: ALBUTEROL/IPRATROPIUM 3 ML NEB RESP TX PRN (22:30)
[2020-06-02] MEDS: MEROPENEM 500 MG in SODIUM CHLORIDE 0.9% 100 ML IV SCH ×3 (00:55→12:26)
[2020-06-02 02:52] LABS: Calcium 8.1 MG/DL (8.5-10.1); Osmolality,Calculated 263.7 MOS/KG (273-304)
[2020-06-02] MEDS: ACETAMINOPHEN 650 MG SUPP RECTAL PRN ×3 (03:05→18:20)
[2020-06-02 06:28] LABS: Basophils # 0.1 10*3/uL (0.0-0.2); Basophils % 0.6 % (0.0-0.8); Hematocrit 25.5 VOL% (35.7-47.0); Hemoglobin 8.3 GM/DL (12.0-16.0); Immature Granulocytes % 0.5 %; Immature Granulocytes Absolute 0.04 #; Lymphocytes # 1.1 10*3/uL (1.4-4.0); Lymphocytes % 12.7 % (21.3-54.2); Mean Corpuscular HGB Conc 32.5 GM/DL (32-36); Mean Corpuscular Volume 97.3 FL (87-102); Mean Platelet Volume 9.9 FL (9.6-12.0); Monocytes % 15.6 % (1.7-12.7); Neutrophils % 70.6 % (38.7-73.9); Platelet Count 166 T/CUMM (130-400); Red Blood Count 2.62 MC/CUMM (3.8-5.5); Red Cell Distribution Width 13.5 % (9.3-17.3); White Blood Count 8.9 T/CUMM (4-12)
[2020-06-02] MEDS: SODIUM CHLORIDE 0.9% 1,000 ML IV SCH (06:58)
[2020-06-02] MEDS ORDERED: CARBOXYMETHYLCELLULOSE 1% OPH SOLN BOTH EYES PRN (07:05)
[2020-06-02 07:06] LABS: Albumin 2.3 G/DL (3.4-5.0); Bilirubin,Total 0.8 MG/DL (0.2-1.0); Calcium 8.2 MG/DL (8.5-10.1); Osmolality,Calculated 264.5 MOS/KG (273-304); Total Protein 5.5 G/DL (6.4-8.3)
[2020-06-02] MEDS: DEXTROSE 50% 25 GM/50 ML VIAL IV PRN (07:24)
[2020-06-02 07:50] LABS: Bacteria,Urine Few /HPF (Few); Bilirubin,Urine Negative (Negative); Blood, Urine Negative (Negative); Glucose,Urine (UA) 50 mg/dL (Negative); Hyaline Casts,Urine 4 /LPF (0-3); Ketones,Urine Negative (Negative); Nitrite,Urine Negative (Negative); Protein,Urine Negative; RBC,Urine 11 /HPF (0-4); Urine Appearance CLOUDY (Clear); Urine Color Yellow (Yellow); Urine Specific Gravity 1.009 (1.001-1.035); Urine Urobilinogen < 2.0 EU/DL (0.2-1.0); WBC,Urine 298 /HPF (0-6)
[2020-06-02] MEDS ORDERED: FERROUS SULFATE 325 MG TABLET PO SCH (09:00)
[2020-06-02] MEDS: LEFLUNOMIDE 10 MG TABLET PO SCH (09:07)
[2020-06-02] MEDS: PANTOPRAZOLE 40 MG TABLET PO SCH ×2 (09:08→20:35)
[2020-06-02] MEDS: MAGNESIUM OXIDE 400 MG TABLET PO SCH ×3 (09:08→20:34)
[2020-06-02] MEDS: RIVAROXABAN 10 MG TABLET PO SCH (09:08)
[2020-06-02] MEDS: CARBIDOPA/LEVODOPA 25-100 MG TABLET PO SCH ×2 (09:08→20:50)
[2020-06-02] MEDS: SIMETHICONE CHEW 125 MG TABLET PO PRN (09:09)
[2020-06-02] MEDS: oxyCODONE/ACETAMINOPHEN 5-325 MG TABLET PO PRN ×2 (09:10→14:17)
[2020-06-02] MEDS: POLYETHYLENE GLYCOL POWDER 17 GM PACK PO SCH (09:13)
[2020-06-02] MEDS: HYDROXYCHLOROQUINE 200 MG TABLET PO SCH ×2 (09:18→20:50)
[2020-06-02] MEDS: ASPIRIN 325 MG TABLET PO SCH (09:18)
[2020-06-02] MEDS: OXYBUTYNIN XL 10 MG TABLET PO SCH (09:18)
[2020-06-02] MEDS: CALCIUM (CARBONATE) 600 MG TABLET PO SCH (09:18)
[2020-06-02] MEDS: MULTIVITAMIN (CENTRUM) TABLET PO SCH (09:20)
[2020-06-02] MEDS: ONDANSETRON 4 MG/2 ML VIAL IV PRN (09:50)
[2020-06-02] MEDS: GABAPENTIN 400 MG CAPSULE PO SCH ×2 (10:11→20:33)
[2020-06-02 10:13] LABS: Calcium 7.9 MG/DL (8.5-10.1); Osmolality,Calculated 267.7 MOS/KG (273-304)
[2020-06-02] MEDS: BENZONATATE 100 MG CAPSULE PO PRN ×3 (11:17→20:32)
[2020-06-02] MEDS: DEXT 5% NACL 0.9% KCL 20 MEQ 20 MEQ/1,000 ML BAG IV SCH (14:17)
[2020-06-02] MEDS: ACETAMINOPHEN 325 MG TABLET PO PRN (20:33)
[2020-06-02] MEDS: MONTELUKAST 10 MG TABLET PO SCH (20:33)
[2020-06-02] MEDS: ATORVASTATIN 40 MG TABLET PO SCH (20:34)
[2020-06-02] MEDS: LEVOTHYROXINE 125 MCG TABLET PO SCH (20:35)
[2020-06-03] MEDS: MEROPENEM 500 MG in SODIUM CHLORIDE 0.9% 100 ML IV SCH ×6 (00:09→23:31)
[2020-06-03] MEDS: DEXT 5% NACL 0.9% KCL 20 MEQ 20 MEQ/1,000 ML BAG IV SCH ×3 (01:50→14:46)
[2020-06-03] MEDS: oxyCODONE/ACETAMINOPHEN 5-325 MG TABLET PO PRN ×2 (03:04→16:17)
[2020-06-03 09:27] LABS: Basophils # 0.1 10*3/uL (0.0-0.2); Basophils % 0.7 % (0.0-0.8); Hematocrit 24.8 VOL% (35.7-47.0); Hemoglobin 7.9 GM/DL (12.0-16.0); Immature Granulocytes % 0.4 %; Immature Granulocytes Absolute 0.04 #; Lymphocytes # 1.3 10*3/uL (1.4-4.0); Lymphocytes % 14.1 % (21.3-54.2); Mean Corpuscular HGB Conc 31.9 GM/DL (32-36); Mean Corpuscular Volume 100.4 FL (87-102); Mean Platelet Volume 9.5 FL (9.6-12.0); Monocytes % 16.3 % (1.7-12.7); Neutrophils % 68.5 % (38.7-73.9); Platelet Count 182 T/CUMM (130-400); Red Blood Count 2.47 MC/CUMM (3.8-5.5); Red Cell Distribution Width 14.1 % (9.3-17.3); White Blood Count 9.2 T/CUMM (4-12)
[2020-06-03] MEDS ORDERED: HYDROmorphone 2 MG/1 ML VIAL IV ONE (09:27)
[2020-06-03 09:48] LABS: Band Neutrophils 1 % (0-10); Lymphocytes 15 % (20-55); Platelet Estimate Adequate; Segmented Neutrophils 75 % (50-85); Total Cells Counted 100
[2020-06-03 09:49] LABS: Hypochromasia 2+; Microcytosis 1+
[2020-06-03 09:51] LABS: Albumin 2.3 G/DL (3.4-5.0); Bilirubin,Total 1.2 MG/DL (0.2-1.0); Calcium 8.2 MG/DL (8.5-10.1); Total Protein 5.5 G/DL (6.4-8.3)
[2020-06-03] MEDS: POLYETHYLENE GLYCOL POWDER 17 GM PACK PO SCH (09:55)
[2020-06-03] MEDS: ASPIRIN 325 MG TABLET PO SCH (09:55)
[2020-06-03] MEDS: LEFLUNOMIDE 10 MG TABLET PO SCH (09:56)
[2020-06-03] MEDS: GABAPENTIN 400 MG CAPSULE PO SCH ×2 (09:56→21:53)
[2020-06-03] MEDS: HYDROXYCHLOROQUINE 200 MG TABLET PO SCH ×2 (09:56→21:53)
[2020-06-03] MEDS: MAGNESIUM OXIDE 400 MG TABLET PO SCH ×3 (09:56→21:53)
[2020-06-03] MEDS: MULTIVITAMIN (CENTRUM) TABLET PO SCH (09:57)
[2020-06-03] MEDS: CARBIDOPA/LEVODOPA 25-100 MG TABLET PO SCH ×2 (09:57→21:53)
[2020-06-03] MEDS: PANTOPRAZOLE 40 MG TABLET PO SCH ×2 (09:59→21:53)
[2020-06-03] MEDS: CALCIUM (CARBONATE) 600 MG TABLET PO SCH (09:59)
[2020-06-03] MEDS: OXYBUTYNIN XL 10 MG TABLET PO SCH (09:59)
[2020-06-03] MEDS: RIVAROXABAN 10 MG TABLET PO SCH (10:00)
[2020-06-03] MEDS: BENZONATATE 100 MG CAPSULE PO PRN ×2 (16:21→21:53)
[2020-06-03] MEDS: ACETAMINOPHEN 650 MG SUPP RECTAL PRN (20:09)
[2020-06-03] MEDS: MONTELUKAST 10 MG TABLET PO SCH (21:53)
[2020-06-03] MEDS: ATORVASTATIN 40 MG TABLET PO SCH (21:53)
[2020-06-03] MEDS: LEVOTHYROXINE 125 MCG TABLET PO SCH (21:54)
[2020-06-03] MEDS: ALPRAZolam 0.25 MG TABLET PO PRN (22:42)
[2020-06-03] MEDS: ACETAMINOPHEN 325 MG TABLET PO PRN (23:22)
[2020-06-04] MEDS: oxyCODONE/ACETAMINOPHEN 5-325 MG TABLET PO PRN ×3 (00:08→20:52)
[2020-06-04] MEDS: DEXT 5% NACL 0.9% KCL 20 MEQ 20 MEQ/1,000 ML BAG IV SCH ×2 (02:00→16:09)
[2020-06-04 04:51] LABS: Basophils # 0.1 10*3/uL (0.0-0.2); Basophils % 0.8 % (0.0-0.8); Eosinophils # 0.2 10*3/uL (0.0-0.87); Eosinophils % 2.2 % (0.00-10.9); Hematocrit 25.4 VOL% (35.7-47.0); Hemoglobin 7.9 GM/DL (12.0-16.0); Immature Granulocytes % 0.6 %; Immature Granulocytes Absolute 0.05 #; Lymphocytes # 1.7 10*3/uL (1.4-4.0); Lymphocytes % 22.5 % (21.3-54.2); Mean Corpuscular HGB Conc 31.1 GM/DL (32-36); Mean Corpuscular Volume 102.4 FL (87-102); Mean Platelet Volume 9.3 FL (9.6-12.0); Monocytes % 20.6 % (1.7-12.7); Neutrophils % 53.3 % (38.7-73.9); Platelet Count 183 T/CUMM (130-400); Red Blood Count 2.48 MC/CUMM (3.8-5.5); Red Cell Distribution Width 13.8 % (9.3-17.3); White Blood Count 7.7 T/CUMM (4-12)
[2020-06-04 05:16] LABS: Calcium 8.2 MG/DL (8.5-10.1); Osmolality,Calculated 278.4 MOS/KG (273-304)
[2020-06-04 05:17] LABS: Eosinophils 2 % (0-10); Hypochromasia 2+; Lymphocytes 22 % (20-55); Microcytosis 1+; Platelet Estimate Adequate; Segmented Neutrophils 64 % (50-85); Total Cells Counted 100
[2020-06-04] MEDS: MEROPENEM 500 MG in SODIUM CHLORIDE 0.9% 100 ML IV SCH ×3 (05:38→18:12)
[2020-06-04] MEDS: MAGNESIUM OXIDE 400 MG TABLET PO SCH ×2 (08:14→15:27)
[2020-06-04] MEDS: OXYBUTYNIN XL 10 MG TABLET PO SCH (08:58)
[2020-06-04] MEDS: CARBIDOPA/LEVODOPA 25-100 MG TABLET PO SCH ×2 (08:58→20:53)
[2020-06-04] MEDS: LEFLUNOMIDE 10 MG TABLET PO SCH (08:58)
[2020-06-04] MEDS: PANTOPRAZOLE 40 MG TABLET PO SCH ×2 (08:59→20:51)
[2020-06-04] MEDS: GABAPENTIN 400 MG CAPSULE PO SCH ×2 (08:59→20:51)
[2020-06-04] MEDS: BENZONATATE 100 MG CAPSULE PO PRN (08:59)
[2020-06-04] MEDS: HYDROXYCHLOROQUINE 200 MG TABLET PO SCH ×2 (09:00→20:52)
[2020-06-04] MEDS: RIVAROXABAN 10 MG TABLET PO SCH (09:02)
[2020-06-04 13:01] LABS: Osmolality, Serum 253 mOsm/kg (275 - 295)
[2020-06-04 15:43] LABS: Osmolality, Urine 393 mOsm/kg (150 - 1150)
[2020-06-04] MEDS: MULTIVITAMIN (CENTRUM) TABLET PO SCH (16:08)
[2020-06-04] MEDS: CALCIUM (CARBONATE) 600 MG TABLET PO SCH (16:08)
[2020-06-04] MEDS: ASPIRIN 325 MG TABLET PO SCH (16:08)
[2020-06-04] MEDS: POLYETHYLENE GLYCOL POWDER 17 GM PACK PO SCH (16:09)
[2020-06-04] MEDS ORDERED: ZALEPLON 5 MG CAPSULE PO PRN (19:53)
[2020-06-04] MEDS: MONTELUKAST 10 MG TABLET PO SCH (20:51)
[2020-06-04] MEDS: ALPRAZolam 0.25 MG TABLET PO PRN (20:51)
[2020-06-04] MEDS: ATORVASTATIN 40 MG TABLET PO SCH (20:52)
[2020-06-04] MEDS: LEVOTHYROXINE 125 MCG TABLET PO SCH (20:52)
[2020-06-04] MEDS: ONDANSETRON 4 MG/2 ML VIAL IV PRN (20:58)
[2020-06-05] MEDS: MEROPENEM 500 MG in SODIUM CHLORIDE 0.9% 100 ML IV SCH ×4 (00:15→18:20)
[2020-06-05 06:39] LABS: Basophils % 0.1 % (0.0-0.8); Hematocrit 27.3 VOL% (35.7-47.0); Hemoglobin 8.4 GM/DL (12.0-16.0); Immature Granulocytes % 0.9 %; Immature Granulocytes Absolute 0.15 #; Lymphocytes # 1.1 10*3/uL (1.4-4.0); Lymphocytes % 6.6 % (21.3-54.2); Mean Corpuscular HGB Conc 30.8 GM/DL (32-36); Mean Corpuscular Volume 103.8 FL (87-102); Mean Platelet Volume 9.8 FL (9.6-12.0); Monocytes % 10.6 % (1.7-12.7); Neutrophils % 81.8 % (38.7-73.9); Platelet Count 211 T/CUMM (130-400); Red Blood Count 2.63 MC/CUMM (3.8-5.5); White Blood Count 16.3 T/CUMM (4-12)
[2020-06-05 07:11] LABS: Calcium 8.2 MG/DL (8.5-10.1); Osmolality,Calculated 281.4 MOS/KG (273-304)
[2020-06-05] MEDS: DEXT 5% NACL 0.9% KCL 20 MEQ 20 MEQ/1,000 ML BAG IV SCH (07:21)
[2020-06-05] MEDS: PANTOPRAZOLE 40 MG TABLET PO SCH ×2 (09:53→20:41)
[2020-06-05] MEDS: GABAPENTIN 400 MG CAPSULE PO SCH ×2 (09:53→20:41)
[2020-06-05] MEDS: ALPRAZolam 0.25 MG TABLET PO PRN ×2 (09:53→13:12)
[2020-06-05] MEDS: CARBIDOPA/LEVODOPA 25-100 MG TABLET PO SCH ×2 (09:53→20:42)
[2020-06-05] MEDS: MULTIVITAMIN (CENTRUM) TABLET PO SCH (09:53)
[2020-06-05] MEDS: SIMETHICONE CHEW 125 MG TABLET PO PRN (09:54)
[2020-06-05] MEDS: POLYETHYLENE GLYCOL POWDER 17 GM PACK PO SCH (09:56)
[2020-06-05] MEDS: ASPIRIN 325 MG TABLET PO SCH (09:57)
[2020-06-05] MEDS: CALCIUM (CARBONATE) 600 MG TABLET PO SCH (09:57)
[2020-06-05] MEDS: LEFLUNOMIDE 10 MG TABLET PO SCH (09:57)
[2020-06-05] MEDS: OXYBUTYNIN XL 10 MG TABLET PO SCH (10:00)
[2020-06-05] MEDS: MAGNESIUM OXIDE 400 MG TABLET PO SCH ×3 (10:00→20:43)
[2020-06-05] MEDS: HYDROXYCHLOROQUINE 200 MG TABLET PO SCH ×2 (10:01→20:44)
[2020-06-05] MEDS: oxyCODONE/ACETAMINOPHEN 5-325 MG TABLET PO PRN (18:28)
[2020-06-05] MEDS: ATORVASTATIN 40 MG TABLET PO SCH (20:41)
[2020-06-05] MEDS: MONTELUKAST 10 MG TABLET PO SCH (20:41)
[2020-06-05] MEDS: LEVOTHYROXINE 125 MCG TABLET PO SCH (20:42)
[2020-06-06] MEDS: DEXT 5% NACL 0.9% KCL 20 MEQ 20 MEQ/1,000 ML BAG IV SCH ×2 (00:21→13:04)
[2020-06-06] MEDS: MEROPENEM 500 MG in SODIUM CHLORIDE 0.9% 100 ML IV SCH ×4 (00:22→18:07)
[2020-06-06 06:53] LABS: INR 1.3
[2020-06-06] MEDS ORDERED: LACTATED RINGERS 1,000 ML IV SCH (08:00)
[2020-06-06 08:15] LABS: Basophils % 0.3 % (0.0-0.8); Hematocrit 26.1 VOL% (35.7-47.0); Hemoglobin 8.1 GM/DL (12.0-16.0); Immature Granulocytes % 1.3 %; Immature Granulocytes Absolute 0.16 #; Lymphocytes # 1.6 10*3/uL (1.4-4.0); Lymphocytes % 13.8 % (21.3-54.2); Mean Corpuscular Volume 103.6 FL (87-102); Monocytes % 19.7 % (1.7-12.7); NRBC # 0.02 10*3/uL; Neutrophils % 64.9 % (38.7-73.9); Platelet Count 183 T/CUMM (130-400); Red Blood Count 2.52 MC/CUMM (3.8-5.5); Red Cell Distribution Width 14.6 % (9.3-17.3); White Blood Count 11.9 T/CUMM (4-12)
[2020-06-06 08:40] LABS: Albumin 2.4 G/DL (3.4-5.0); Band Neutrophils 1 % (0-10); Bilirubin,Total 0.4 MG/DL (0.2-1.0); Calcium 8.1 MG/DL (8.5-10.1); Hypochromasia 1+; Lymphocytes 12 % (20-55); Microcytosis 1+; Osmolality,Calculated 279.5 MOS/KG (273-304); Ovalocytes Slight; Platelet Estimate Adequate; Segmented Neutrophils 71 % (50-85); Total Cells Counted 100; Total Protein 5.7 G/DL (6.4-8.3)
[2020-06-06] MEDS ORDERED: INSULIN REGULAR 10 UNIT, CALCIUM GLUCONATE 1,000 MG in DEXTROSE 10% 250 ML IV ONE (08:58)
[2020-06-06] MEDS ORDERED: SODIUM BICARBONATE 50 MEQ/50 ML VIAL IV ONE (08:59)
[2020-06-06] MEDS: ASPIRIN 325 MG TABLET PO SCH (13:02)
[2020-06-06] MEDS: LEFLUNOMIDE 10 MG TABLET PO SCH (13:02)
[2020-06-06] MEDS: CALCIUM (CARBONATE) 600 MG TABLET PO SCH (13:02)
[2020-06-06] MEDS: MULTIVITAMIN (CENTRUM) TABLET PO SCH (13:02)
[2020-06-06] MEDS: OXYBUTYNIN XL 10 MG TABLET PO SCH (13:03)
[2020-06-06] MEDS: POLYETHYLENE GLYCOL POWDER 17 GM PACK PO SCH (13:03)
[2020-06-06] MEDS: GABAPENTIN 400 MG CAPSULE PO SCH ×2 (13:03→20:40)
[2020-06-06] MEDS: PANTOPRAZOLE 40 MG TABLET PO SCH ×2 (13:03→20:41)
[2020-06-06] MEDS: MAGNESIUM OXIDE 400 MG TABLET PO SCH ×3 (13:03→20:42)
[2020-06-06] MEDS: CARBIDOPA/LEVODOPA 25-100 MG TABLET PO SCH ×2 (13:03→20:41)
[2020-06-06] MEDS: HYDROXYCHLOROQUINE 200 MG TABLET PO SCH ×2 (13:03→20:41)
[2020-06-06] MEDS: fentaNYL 12 MCG/HR PATCH TRANSDERM SCH (13:18)
[2020-06-06] MEDS ORDERED: DEXTROSE 50% 25 GM/50 ML VIAL IV ONE (13:33)
[2020-06-06] MEDS ORDERED: INSULIN REGULAR 100 UNIT/ML IV ONE (13:34)
[2020-06-06] MEDS ORDERED: SODIUM POLYSTYRENE SULFATE 15 GM/60 ML BOTTLE PO ONE (13:36)
[2020-06-06] MEDS ORDERED: SODIUM POLYSTYRENE SULFATE 15 GM/60 ML BOTTLE PO SCH (14:00)
[2020-06-06] MEDS: oxyCODONE/ACETAMINOPHEN 5-325 MG TABLET PO PRN ×2 (15:12→20:41)
[2020-06-06] MEDS: ONDANSETRON 4 MG/2 ML VIAL IV PRN (20:40)
[2020-06-06] MEDS: MONTELUKAST 10 MG TABLET PO SCH (20:40)
[2020-06-06] MEDS: ATORVASTATIN 40 MG TABLET PO SCH (20:40)
[2020-06-06] MEDS: LEVOTHYROXINE 125 MCG TABLET PO SCH (20:40)
[2020-06-06 22:25] LABS: Calcium 8.2 MG/DL (8.5-10.1); Osmolality,Calculated 280.3 MOS/KG (273-304)
[2020-06-07] MEDS: MEROPENEM 500 MG in SODIUM CHLORIDE 0.9% 100 ML IV SCH ×4 (02:17→19:13)
[2020-06-07] MEDS: DEXTROSE 50% 25 GM/50 ML VIAL IV PRN (02:39)
[2020-06-07] MEDS: ONDANSETRON 4 MG/2 ML VIAL IV PRN ×3 (05:47→21:24)
[2020-06-07 06:14] LABS: Basophils % 0.2 % (0.0-0.8); Hematocrit 26.7 VOL% (35.7-47.0); Immature Granulocytes % 0.6 %; Immature Granulocytes Absolute 0.06 #; Lymphocytes # 2.1 10*3/uL (1.4-4.0); Lymphocytes % 21.1 % (21.3-54.2); Mean Corpuscular Volume 106.8 FL (87-102); Mean Platelet Volume 9.8 FL (9.6-12.0); Monocytes % 17.9 % (1.7-12.7); NRBC # 0.02 10*3/uL; Neutrophils % 60.2 % (38.7-73.9); Platelet Count 177 T/CUMM (130-400); Red Cell Distribution Width 14.7 % (9.3-17.3); White Blood Count 9.9 T/CUMM (4-12)
[2020-06-07 06:34] LABS: Albumin 2.2 G/DL (3.4-5.0); Bilirubin,Total 0.4 MG/DL (0.2-1.0); Calcium 8.2 MG/DL (8.5-10.1); Osmolality,Calculated 282.3 MOS/KG (273-304); Total Protein 5.3 G/DL (6.4-8.3)
[2020-06-07 06:46] LABS: Hypochromasia 2+; Lymphocytes 27 % (20-55); Microcytosis 1+; Nucleated Red Blood Cells 1 (0-5); Segmented Neutrophils 57 % (50-85); Total Cells Counted 100
[2020-06-07 06:48] LABS: Platelet Estimate Adequate
[2020-06-07] MEDS ORDERED: ONDANSETRON 4 MG/2 ML VIAL ONE (09:27)
[2020-06-07] MEDS ORDERED: ETOMIDATE 20 MG/10 ML VIAL IV ONE (09:28)
[2020-06-07] MEDS ORDERED: propofoL 200 MG/20 ML VIAL IV ONE (09:28)
[2020-06-07] MEDS ORDERED: PHENYLEPHRINE 1 MG/10 ML SYRINGE IV ONE (10:15)
[2020-06-07] MEDS: oxyCODONE/ACETAMINOPHEN 5-325 MG TABLET PO PRN ×2 (11:38→21:32)
[2020-06-07] MEDS: GABAPENTIN 400 MG CAPSULE PO SCH ×2 (12:18→21:31)
[2020-06-07] MEDS: MAGNESIUM OXIDE 400 MG TABLET PO SCH ×3 (12:18→21:31)
[2020-06-07] MEDS: HYDROXYCHLOROQUINE 200 MG TABLET PO SCH ×2 (12:18→21:31)
[2020-06-07] MEDS: CARBIDOPA/LEVODOPA 25-100 MG TABLET PO SCH ×2 (12:19→21:33)
[2020-06-07] MEDS: PANTOPRAZOLE 40 MG TABLET PO SCH ×2 (12:19→21:33)
[2020-06-07] MEDS: ASPIRIN 325 MG TABLET PO SCH (13:04)
[2020-06-07] MEDS: LEFLUNOMIDE 10 MG TABLET PO SCH (13:04)
[2020-06-07] MEDS: OXYBUTYNIN XL 10 MG TABLET PO SCH (13:04)
[2020-06-07] MEDS: CALCIUM (CARBONATE) 600 MG TABLET PO SCH (13:04)
[2020-06-07] MEDS: POLYETHYLENE GLYCOL POWDER 17 GM PACK PO SCH (13:05)
[2020-06-07] MEDS: MULTIVITAMIN (CENTRUM) TABLET PO SCH (13:05)
[2020-06-07] MEDS: ALPRAZolam 0.25 MG TABLET PO PRN (14:15)
[2020-06-07] MEDS: ACETAMINOPHEN 650 MG SUPP RECTAL PRN (15:06)
[2020-06-07] MEDS: RIVAROXABAN 10 MG TABLET PO SCH (15:06)
[2020-06-07] MEDS ORDERED: SODIUM CHLORIDE 0.9% 1,000 ML IV SCH (16:00)
[2020-06-07] MEDS: MONTELUKAST 10 MG TABLET PO SCH (21:31)
[2020-06-07] MEDS: ATORVASTATIN 40 MG TABLET PO SCH (21:33)
[2020-06-07] MEDS: LEVOTHYROXINE 125 MCG TABLET PO SCH (21:33)
[2020-06-08] MEDS: ALPRAZolam 0.25 MG TABLET PO PRN (00:44)
[2020-06-08] MEDS: MEROPENEM 500 MG in SODIUM CHLORIDE 0.9% 100 ML IV SCH ×4 (01:28→18:39)
[2020-06-08] MEDS: ONDANSETRON 4 MG/2 ML VIAL IV PRN ×2 (04:59→20:39)
[2020-06-08] MEDS: oxyCODONE/ACETAMINOPHEN 5-325 MG TABLET PO PRN ×3 (05:00→20:40)
[2020-06-08 06:23] LABS: Basophils % 0.3 % (0.0-0.8); Hematocrit 23.5 VOL% (35.7-47.0); Hemoglobin 7.1 GM/DL (12.0-16.0); Immature Granulocytes % 0.7 %; Immature Granulocytes Absolute 0.06 #; Lymphocytes % 22.9 % (21.3-54.2); Mean Corpuscular HGB Conc 30.2 GM/DL (32-36); Mean Corpuscular Volume 106.3 FL (87-102); Mean Platelet Volume 9.6 FL (9.6-12.0); Monocytes % 15.5 % (1.7-12.7); NRBC # 0.02 10*3/uL; Neutrophils % 60.6 % (38.7-73.9); Platelet Count 159 T/CUMM (130-400); Red Blood Count 2.21 MC/CUMM (3.8-5.5); Red Cell Distribution Width 14.8 % (9.3-17.3); White Blood Count 8.6 T/CUMM (4-12)
[2020-06-08 06:57] LABS: Bilirubin,Total 0.4 MG/DL (0.2-1.0); Calcium 7.7 MG/DL (8.5-10.1); Osmolality,Calculated 286.4 MOS/KG (273-304)
[2020-06-08] MEDS ORDERED: SODIUM CHLORIDE 0.9% 1,000 ML IV PRN (08:21)
[2020-06-08] MEDS: MULTIVITAMIN (CENTRUM) TABLET PO SCH (08:49)
[2020-06-08] MEDS: GABAPENTIN 400 MG CAPSULE PO SCH ×2 (08:49→20:41)
[2020-06-08] MEDS: LEFLUNOMIDE 10 MG TABLET PO SCH (08:49)
[2020-06-08] MEDS: ASPIRIN 325 MG TABLET PO SCH (08:49)
[2020-06-08] MEDS: CARBIDOPA/LEVODOPA 25-100 MG TABLET PO SCH ×2 (08:49→20:41)
[2020-06-08] MEDS: OXYBUTYNIN XL 10 MG TABLET PO SCH (08:49)
[2020-06-08] MEDS: HYDROXYCHLOROQUINE 200 MG TABLET PO SCH ×2 (08:49→20:41)
[2020-06-08] MEDS: CALCIUM (CARBONATE) 600 MG TABLET PO SCH (08:49)
[2020-06-08] MEDS: RIVAROXABAN 10 MG TABLET PO SCH (08:49)
[2020-06-08] MEDS: PANTOPRAZOLE 40 MG TABLET PO SCH ×2 (08:49→20:41)
[2020-06-08] MEDS: MAGNESIUM OXIDE 400 MG TABLET PO SCH ×3 (08:50→20:41)
[2020-06-08] MEDS: POLYETHYLENE GLYCOL POWDER 17 GM PACK PO SCH (08:50)
[2020-06-08 15:59] LABS: Hemoglobin 9.9 GM/DL (12.0-16.0)
[2020-06-08] MEDS: LEVOTHYROXINE 125 MCG TABLET PO SCH (20:41)
[2020-06-08] MEDS: MONTELUKAST 10 MG TABLET PO SCH (20:41)
[2020-06-08] MEDS: ATORVASTATIN 40 MG TABLET PO SCH (20:41)
[2020-06-09] MEDS: ONDANSETRON 4 MG/2 ML VIAL IV PRN ×5 (00:27→21:58)
[2020-06-09 05:59] LABS: Basophils % 0.4 % (0.0-0.8); Hematocrit 32.9 VOL% (35.7-47.0); Hemoglobin 10.2 GM/DL (12.0-16.0); Immature Granulocytes % 0.6 %; Immature Granulocytes Absolute 0.05 #; Lymphocytes # 1.5 10*3/uL (1.4-4.0); Lymphocytes % 18.5 % (21.3-54.2); Mean Corpuscular Volume 101.5 FL (87-102); Mean Platelet Volume 9.7 FL (9.6-12.0); Monocytes % 13.9 % (1.7-12.7); NRBC # 0.02 10*3/uL; Neutrophils % 66.6 % (38.7-73.9); Platelet Count 168 T/CUMM (130-400); Red Blood Count 3.24 MC/CUMM (3.8-5.5); White Blood Count 8.3 T/CUMM (4-12)
[2020-06-09 06:25] LABS: Calcium 7.6 MG/DL (8.5-10.1); Osmolality,Calculated 282.8 MOS/KG (273-304)
[2020-06-09] MEDS: oxyCODONE/ACETAMINOPHEN 5-325 MG TABLET PO PRN ×2 (07:45→21:59)
[2020-06-09] MEDS ORDERED: FUROSEMIDE 20 MG/2 ML VIAL IV ONE (09:31)
[2020-06-09] MEDS: GABAPENTIN 400 MG CAPSULE PO SCH ×2 (11:00→21:56)
[2020-06-09] MEDS: MULTIVITAMIN (CENTRUM) TABLET PO SCH (11:00)
[2020-06-09] MEDS: CALCIUM (CARBONATE) 600 MG TABLET PO SCH (11:01)
[2020-06-09] MEDS: RIVAROXABAN 10 MG TABLET PO SCH (11:01)
[2020-06-09] MEDS: FERROUS SULFATE 325 MG TABLET PO SCH ×2 (11:01→21:57)
[2020-06-09] MEDS: PANTOPRAZOLE 40 MG TABLET PO SCH ×2 (11:01→21:58)
[2020-06-09] MEDS: POLYETHYLENE GLYCOL POWDER 17 GM PACK PO SCH (11:01)
[2020-06-09] MEDS: CARBIDOPA/LEVODOPA 25-100 MG TABLET PO SCH ×2 (11:01→21:57)
[2020-06-09] MEDS: MAGNESIUM OXIDE 400 MG TABLET PO SCH ×3 (11:01→21:55)
[2020-06-09] MEDS: ASPIRIN 325 MG TABLET PO SCH (11:02)
[2020-06-09] MEDS: HYDROXYCHLOROQUINE 200 MG TABLET PO SCH ×2 (11:02→21:57)
[2020-06-09] MEDS: fentaNYL 12 MCG/HR PATCH TRANSDERM SCH (11:02)
[2020-06-09] MEDS: OXYBUTYNIN XL 10 MG TABLET PO SCH (11:02)
[2020-06-09] MEDS: LEFLUNOMIDE 10 MG TABLET PO SCH (11:05)
[2020-06-09] MEDS: MONTELUKAST 10 MG TABLET PO SCH (21:57)
[2020-06-09] MEDS: LEVOTHYROXINE 125 MCG TABLET PO SCH (21:57)
[2020-06-09] MEDS: ATORVASTATIN 40 MG TABLET PO SCH (21:57)
[2020-06-10] MEDS: oxyCODONE/ACETAMINOPHEN 5-325 MG TABLET PO PRN ×3 (04:06→21:13)
[2020-06-10] MEDS: ONDANSETRON 4 MG/2 ML VIAL IV PRN ×4 (04:06→21:14)
[2020-06-10 06:14] LABS: Calcium 7.6 MG/DL (8.5-10.1); Osmolality,Calculated 279.2 MOS/KG (273-304)
[2020-06-10] MEDS ORDERED: SODIUM POLYSTYRENE SULFATE 15 GM/60 ML BOTTLE PO ONE ×2 (06:22→16:47)
[2020-06-10] MEDS: MAGNESIUM OXIDE 400 MG TABLET PO SCH ×3 (09:21→21:12)
[2020-06-10] MEDS: MULTIVITAMIN (CENTRUM) TABLET PO SCH (09:22)
[2020-06-10] MEDS: GABAPENTIN 400 MG CAPSULE PO SCH ×2 (09:23→21:13)
[2020-06-10] MEDS: CALCIUM (CARBONATE) 600 MG TABLET PO SCH (09:23)
[2020-06-10] MEDS: LEFLUNOMIDE 10 MG TABLET PO SCH (09:23)
[2020-06-10] MEDS: RIVAROXABAN 10 MG TABLET PO SCH (09:23)
[2020-06-10] MEDS: OXYBUTYNIN XL 10 MG TABLET PO SCH (09:23)
[2020-06-10] MEDS: HYDROXYCHLOROQUINE 200 MG TABLET PO SCH ×2 (09:23→21:13)
[2020-06-10] MEDS: ASPIRIN 325 MG TABLET PO SCH (09:23)
[2020-06-10] MEDS: POLYETHYLENE GLYCOL POWDER 17 GM PACK PO SCH (09:24)
[2020-06-10] MEDS: PANTOPRAZOLE 40 MG TABLET PO SCH ×2 (09:24→21:12)
[2020-06-10] MEDS: FERROUS SULFATE 325 MG TABLET PO SCH ×2 (09:24→21:12)
[2020-06-10] MEDS: CARBIDOPA/LEVODOPA 25-100 MG TABLET PO SCH ×2 (09:24→21:12)
[2020-06-10] MEDS: MENTHOL/ZINC OXIDE OINT 71 GM JAR TOP SCH ×3 (09:25→22:12)
[2020-06-10] MEDS: ALPRAZolam 0.25 MG TABLET PO PRN (21:12)
[2020-06-10] MEDS: MONTELUKAST 10 MG TABLET PO SCH (21:12)
[2020-06-10] MEDS: ATORVASTATIN 40 MG TABLET PO SCH (21:12)
[2020-06-10] MEDS: LEVOTHYROXINE 125 MCG TABLET PO SCH (21:13)
[2020-06-11] MEDS ORDERED: MEPERIDINE 25 MG/1 ML VIAL IV ONE (01:19)
[2020-06-11] MEDS: ONDANSETRON 4 MG/2 ML VIAL IV PRN ×4 (01:37→20:55)
[2020-06-11] MEDS ORDERED: MEPERIDINE 25 MG/1 ML VIAL IV PRN (06:20)
[2020-06-11 06:23] LABS: Calcium 7.7 MG/DL (8.5-10.1); Osmolality,Calculated 274.7 MOS/KG (273-304)
[2020-06-11] MEDS: HYDROXYCHLOROQUINE 200 MG TABLET PO SCH ×2 (08:25→20:54)
[2020-06-11] MEDS: CARBIDOPA/LEVODOPA 25-100 MG TABLET PO SCH ×2 (08:25→20:54)
[2020-06-11] MEDS: RIVAROXABAN 10 MG TABLET PO SCH (08:25)
[2020-06-11] MEDS: ASPIRIN 325 MG TABLET PO SCH (08:25)
[2020-06-11] MEDS: FERROUS SULFATE 325 MG TABLET PO SCH ×2 (08:25→20:53)
[2020-06-11] MEDS: GABAPENTIN 400 MG CAPSULE PO SCH ×2 (08:25→20:54)
[2020-06-11] MEDS: OXYBUTYNIN XL 10 MG TABLET PO SCH (08:25)
[2020-06-11] MEDS: PANTOPRAZOLE 40 MG TABLET PO SCH ×2 (08:25→20:54)
[2020-06-11] MEDS: LEFLUNOMIDE 10 MG TABLET PO SCH (08:25)
[2020-06-11] MEDS: MENTHOL/ZINC OXIDE OINT 71 GM JAR TOP SCH ×2 (08:26→20:55)
[2020-06-11] MEDS: CALCIUM (CARBONATE) 600 MG TABLET PO SCH (08:27)
[2020-06-11] MEDS: MULTIVITAMIN (CENTRUM) TABLET PO SCH (08:27)
[2020-06-11] MEDS: POLYETHYLENE GLYCOL POWDER 17 GM PACK PO SCH (08:27)
[2020-06-11] MEDS: MAGNESIUM OXIDE 400 MG TABLET PO SCH ×3 (08:27→20:53)
[2020-06-11] MEDS: SODIUM ZIRCONIUM CYCLOSILICATE 10 GM PACK PO SCH ×3 (08:30→20:55)
[2020-06-11] MEDS ORDERED: PROMETHAZINE INJ 12.5 MG in SODIUM CHLORIDE 0.9% 50 ML IV ONE (11:00)
[2020-06-11] MEDS: oxyCODONE/ACETAMINOPHEN 5-325 MG TABLET PO PRN ×2 (14:37→20:53)
[2020-06-11] MEDS: MONTELUKAST 10 MG TABLET PO SCH (20:54)
[2020-06-11] MEDS: ATORVASTATIN 40 MG TABLET PO SCH (20:54)
[2020-06-11] MEDS: LEVOTHYROXINE 125 MCG TABLET PO SCH (20:54)
[2020-06-12] MEDS: ACETAMINOPHEN 325 MG TABLET PO PRN (01:08)
[2020-06-12] MEDS: oxyCODONE/ACETAMINOPHEN 5-325 MG TABLET PO PRN ×3 (03:08→19:07)
[2020-06-12] MEDS ORDERED: HYDROmorphone 2 MG/1 ML VIAL IV ONE (03:39)
[2020-06-12] MEDS: ONDANSETRON 4 MG/2 ML VIAL IV PRN ×2 (04:40→10:38)
[2020-06-12 07:10] LABS: Calcium 8.1 MG/DL (8.5-10.1); Osmolality,Calculated 276.7 MOS/KG (273-304)
[2020-06-12] MEDS ORDERED: ALBUMIN 25% 12.5 GM in PREMIX 1 EACH IV ONE (08:45)
[2020-06-12] MEDS: FERROUS SULFATE 325 MG TABLET PO SCH ×2 (09:50→22:42)
[2020-06-12] MEDS: LEFLUNOMIDE 10 MG TABLET PO SCH (09:50)
[2020-06-12] MEDS: GABAPENTIN 400 MG CAPSULE PO SCH ×2 (09:51→22:41)
[2020-06-12] MEDS: MAGNESIUM OXIDE 400 MG TABLET PO SCH ×4 (09:51→22:41)
[2020-06-12] MEDS: CARBIDOPA/LEVODOPA 25-100 MG TABLET PO SCH ×2 (09:51→22:42)
[2020-06-12] MEDS: MULTIVITAMIN (CENTRUM) TABLET PO SCH (09:51)
[2020-06-12] MEDS: HYDROXYCHLOROQUINE 200 MG TABLET PO SCH ×2 (09:52→22:42)
[2020-06-12] MEDS: PANTOPRAZOLE 40 MG TABLET PO SCH ×2 (09:52→22:42)
[2020-06-12] MEDS: POLYETHYLENE GLYCOL POWDER 17 GM PACK PO SCH (09:52)
[2020-06-12] MEDS: RIVAROXABAN 10 MG TABLET PO SCH (09:52)
[2020-06-12] MEDS: SODIUM ZIRCONIUM CYCLOSILICATE 10 GM PACK PO SCH ×3 (09:52→22:42)
[2020-06-12] MEDS: CALCIUM (CARBONATE) 600 MG TABLET PO SCH (09:52)
[2020-06-12] MEDS: OXYBUTYNIN XL 10 MG TABLET PO SCH (09:52)
[2020-06-12] MEDS: ASPIRIN 325 MG TABLET PO SCH (09:52)
[2020-06-12] MEDS: fentaNYL 12 MCG/HR PATCH TRANSDERM SCH (09:53)
[2020-06-12] MEDS: MENTHOL/ZINC OXIDE OINT 71 GM JAR TOP SCH ×2 (09:54→22:42)
[2020-06-12] MEDS: FUROSEMIDE 40 MG TABLET PO SCH (09:56)
[2020-06-12] MEDS: FLUDROCORTISONE 0.1 MG TABLET PO SCH ×2 (09:57→22:41)
[2020-06-12] MEDS: MOVANTIK 25 MG PO SCH ×2 (10:03→11:28)
[2020-06-12] MEDS: chlorproMAZINE INJ 12.5 MG in SODIUM CHLORIDE 0.9% 100 ML IV PRN (14:50)
[2020-06-12] MEDS: ATORVASTATIN 40 MG TABLET PO SCH (22:41)
[2020-06-12] MEDS: CLORAZEPATE 3.75 MG TABLET PO PRN (22:42)
[2020-06-12] MEDS: MONTELUKAST 10 MG TABLET PO SCH (22:42)
[2020-06-12] MEDS: LEVOTHYROXINE 125 MCG TABLET PO SCH (22:42)
[2020-06-13 06:41] LABS: Calcium 8.4 MG/DL (8.5-10.1); Osmolality,Calculated 281.4 MOS/KG (273-304)
[2020-06-13] MEDS: POLYETHYLENE GLYCOL POWDER 17 GM PACK PO SCH (10:14)
[2020-06-13] MEDS: CARBIDOPA/LEVODOPA 25-100 MG TABLET PO SCH ×2 (10:15→21:42)
[2020-06-13] MEDS: FLUDROCORTISONE 0.1 MG TABLET PO SCH ×2 (10:15→21:41)
[2020-06-13] MEDS: GABAPENTIN 400 MG CAPSULE PO SCH ×2 (10:16→21:46)
[2020-06-13] MEDS: LEFLUNOMIDE 10 MG TABLET PO SCH (10:16)
[2020-06-13] MEDS: RIVAROXABAN 10 MG TABLET PO SCH (10:16)
[2020-06-13] MEDS: FERROUS SULFATE 325 MG TABLET PO SCH ×2 (10:16→21:42)
[2020-06-13] MEDS: OXYBUTYNIN XL 10 MG TABLET PO SCH (10:17)
[2020-06-13] MEDS: HYDROXYCHLOROQUINE 200 MG TABLET PO SCH ×2 (10:17→21:41)
[2020-06-13] MEDS: MAGNESIUM OXIDE 400 MG TABLET PO SCH ×4 (10:17→21:43)
[2020-06-13] MEDS: ASPIRIN 325 MG TABLET PO SCH (10:17)
[2020-06-13] MEDS: MULTIVITAMIN (CENTRUM) TABLET PO SCH (10:17)
[2020-06-13] MEDS: PANTOPRAZOLE 40 MG TABLET PO SCH ×2 (10:17→21:42)
[2020-06-13] MEDS: CALCIUM (CARBONATE) 600 MG TABLET PO SCH (10:18)
[2020-06-13] MEDS: FUROSEMIDE 40 MG TABLET PO SCH (10:18)
[2020-06-13] MEDS: MENTHOL/ZINC OXIDE OINT 71 GM JAR TOP SCH ×2 (10:19→21:42)
[2020-06-13] MEDS: MOVANTIK 25 MG PO SCH (10:19)
[2020-06-13] MEDS: oxyCODONE/ACETAMINOPHEN 5-325 MG TABLET PO PRN ×2 (13:42→21:42)
[2020-06-13] MEDS: CLORAZEPATE 3.75 MG TABLET PO PRN (21:41)
[2020-06-13] MEDS: ATORVASTATIN 40 MG TABLET PO SCH (21:41)
[2020-06-13] MEDS: LEVOTHYROXINE 125 MCG TABLET PO SCH (21:41)
[2020-06-13] MEDS: MONTELUKAST 10 MG TABLET PO SCH (21:42)
[2020-06-14] MEDS: chlorproMAZINE INJ 12.5 MG in SODIUM CHLORIDE 0.9% 100 ML IV PRN (03:09)
[2020-06-14] MEDS: oxyCODONE/ACETAMINOPHEN 5-325 MG TABLET PO PRN ×3 (03:50→22:13)
[2020-06-14 05:52] LABS: Calcium 8.4 MG/DL (8.5-10.1); Osmolality,Calculated 281.4 MOS/KG (273-304)
[2020-06-14] MEDS: MOVANTIK 25 MG PO SCH (09:43)
[2020-06-14] MEDS: HYDROXYCHLOROQUINE 200 MG TABLET PO SCH ×2 (09:44→22:15)
[2020-06-14] MEDS: GABAPENTIN 400 MG CAPSULE PO SCH ×2 (09:44→22:13)
[2020-06-14] MEDS: OXYBUTYNIN XL 10 MG TABLET PO SCH (09:44)
[2020-06-14] MEDS: LEFLUNOMIDE 10 MG TABLET PO SCH (09:44)
[2020-06-14] MEDS: RIVAROXABAN 10 MG TABLET PO SCH (09:45)
[2020-06-14] MEDS: ASPIRIN 325 MG TABLET PO SCH (09:45)
[2020-06-14] MEDS: PANTOPRAZOLE 40 MG TABLET PO SCH ×2 (09:45→22:15)
[2020-06-14] MEDS: FLUDROCORTISONE 0.1 MG TABLET PO SCH ×2 (09:45→22:14)
[2020-06-14] MEDS: FERROUS SULFATE 325 MG TABLET PO SCH ×2 (09:46→22:15)
[2020-06-14] MEDS: CARBIDOPA/LEVODOPA 25-100 MG TABLET PO SCH ×2 (09:46→22:15)
[2020-06-14] MEDS: MENTHOL/ZINC OXIDE OINT 71 GM JAR TOP SCH ×2 (09:46→22:15)
[2020-06-14] MEDS: POLYETHYLENE GLYCOL POWDER 17 GM PACK PO SCH (09:47)
[2020-06-14] MEDS: CALCIUM (CARBONATE) 600 MG TABLET PO SCH (09:47)
[2020-06-14] MEDS: MULTIVITAMIN (CENTRUM) TABLET PO SCH (09:47)
[2020-06-14] MEDS: MAGNESIUM OXIDE 400 MG TABLET PO SCH ×3 (09:47→22:14)
[2020-06-14] MEDS: FUROSEMIDE 40 MG TABLET PO SCH (11:02)
[2020-06-14] MEDS ORDERED: FUROSEMIDE 20 MG/2 ML VIAL IV ONE (11:49)
[2020-06-14] MEDS: FUROSEMIDE 80 MG TABLET PO SCH (16:03)
[2020-06-14] MEDS: ATORVASTATIN 40 MG TABLET PO SCH (22:14)
[2020-06-14] MEDS: LEVOTHYROXINE 125 MCG TABLET PO SCH (22:15)
[2020-06-14] MEDS: MONTELUKAST 10 MG TABLET PO SCH (22:15)
[2020-06-15] MEDS: oxyCODONE/ACETAMINOPHEN 5-325 MG TABLET PO PRN ×4 (05:40→23:28)
[2020-06-15] MEDS: POLYETHYLENE GLYCOL POWDER 17 GM PACK PO SCH (08:51)
[2020-06-15] MEDS: CARBIDOPA/LEVODOPA 25-100 MG TABLET PO SCH ×2 (08:53→20:48)
[2020-06-15] MEDS: OXYBUTYNIN XL 10 MG TABLET PO SCH (08:53)
[2020-06-15] MEDS: PANTOPRAZOLE 40 MG TABLET PO SCH ×2 (08:53→20:48)
[2020-06-15] MEDS: FERROUS SULFATE 325 MG TABLET PO SCH ×2 (08:53→20:48)
[2020-06-15] MEDS: RIVAROXABAN 10 MG TABLET PO SCH (08:53)
[2020-06-15] MEDS: HYDROXYCHLOROQUINE 200 MG TABLET PO SCH ×2 (08:54→20:48)
[2020-06-15] MEDS: FLUDROCORTISONE 0.1 MG TABLET PO SCH ×2 (08:54→20:48)
[2020-06-15] MEDS: GABAPENTIN 400 MG CAPSULE PO SCH ×2 (08:54→20:47)
[2020-06-15] MEDS: FUROSEMIDE 80 MG TABLET PO SCH ×2 (08:54→15:18)
[2020-06-15] MEDS: LEFLUNOMIDE 10 MG TABLET PO SCH (08:54)
[2020-06-15] MEDS: ASPIRIN 325 MG TABLET PO SCH (08:54)
[2020-06-15] MEDS: MENTHOL/ZINC OXIDE OINT 71 GM JAR TOP SCH ×2 (08:55→20:48)
[2020-06-15] MEDS: MOVANTIK 25 MG PO SCH (08:57)
[2020-06-15] MEDS: CALCIUM (CARBONATE) 600 MG TABLET PO SCH (09:00)
[2020-06-15] MEDS: MULTIVITAMIN (CENTRUM) TABLET PO SCH (09:00)
[2020-06-15] MEDS: MAGNESIUM OXIDE 400 MG TABLET PO SCH ×3 (09:00→20:48)
[2020-06-15 09:46] LABS: Basophils % 0.4 % (0.0-0.8); Hematocrit 27.2 VOL% (35.7-47.0); Hemoglobin 8.7 GM/DL (12.0-16.0); Immature Granulocytes % 0.3 %; Immature Granulocytes Absolute 0.02 #; Lymphocytes # 1.1 10*3/uL (1.4-4.0); Lymphocytes % 15.1 % (21.3-54.2); Mean Corpuscular Volume 100.7 FL (87-102); Mean Platelet Volume 9.7 FL (9.6-12.0); Monocytes % 13.8 % (1.7-12.7); Neutrophils % 70.4 % (38.7-73.9); Platelet Count 187 T/CUMM (130-400); Red Cell Distribution Width 15.8 % (9.3-17.3); White Blood Count 7.2 T/CUMM (4-12)
[2020-06-15 10:10] LABS: Calcium 8.8 MG/DL (8.5-10.1)
[2020-06-15] MEDS: CLORAZEPATE 3.75 MG TABLET PO PRN ×2 (12:58→18:57)
[2020-06-15] MEDS: SIMETHICONE CHEW 125 MG TABLET PO PRN (13:29)
[2020-06-15] MEDS: chlorproMAZINE INJ 12.5 MG in SODIUM CHLORIDE 0.9% 100 ML IV PRN (17:25)
[2020-06-15] MEDS: LEVOTHYROXINE 125 MCG TABLET PO SCH (20:48)
[2020-06-15] MEDS: ATORVASTATIN 40 MG TABLET PO SCH (20:48)
[2020-06-15] MEDS: MONTELUKAST 10 MG TABLET PO SCH (20:48)
[2020-06-16 06:02] LABS: Basophils % 0.3 % (0.0-0.8); Hematocrit 24.5 VOL% (35.7-47.0); Hemoglobin 7.6 GM/DL (12.0-16.0); Immature Granulocytes % 0.5 %; Immature Granulocytes Absolute 0.03 #; Lymphocytes # 1.2 10*3/uL (1.4-4.0); Lymphocytes % 19.4 % (21.3-54.2); Mean Corpuscular Volume 100.8 FL (87-102); Mean Platelet Volume 9.8 FL (9.6-12.0); Monocytes % 19.7 % (1.7-12.7); Neutrophils % 60.1 % (38.7-73.9); Platelet Count 160 T/CUMM (130-400); Red Blood Count 2.43 MC/CUMM (3.8-5.5); Red Cell Distribution Width 15.8 % (9.3-17.3); White Blood Count 6.4 T/CUMM (4-12)
[2020-06-16 06:12] LABS: Calcium 8.7 MG/DL (8.5-10.1); Osmolality,Calculated 285.2 MOS/KG (273-304)
[2020-06-16 06:48] LABS: Band Neutrophils 6 % (0-10); Eosinophils 1 % (0-10); Lymphocytes 21 % (20-55); Segmented Neutrophils 56 % (50-85); Total Cells Counted 100
[2020-06-16 06:49] LABS: Anisocytosis 2+; Atypical Lymphocytes Few; Macrocytosis 1+; Platelet Estimate Normal; Poikilocytosis Slight
[2020-06-16] MEDS: FUROSEMIDE 80 MG TABLET PO SCH ×2 (08:59→16:05)
[2020-06-16] MEDS: LEFLUNOMIDE 10 MG TABLET PO SCH (09:00)
[2020-06-16] MEDS: FERROUS SULFATE 325 MG TABLET PO SCH ×2 (09:00→21:56)
[2020-06-16] MEDS: PANTOPRAZOLE 40 MG TABLET PO SCH ×2 (09:00→21:56)
[2020-06-16] MEDS: CARBIDOPA/LEVODOPA 25-100 MG TABLET PO SCH ×2 (09:00→21:56)
[2020-06-16] MEDS: HYDROXYCHLOROQUINE 200 MG TABLET PO SCH ×2 (09:00→21:55)
[2020-06-16] MEDS: GABAPENTIN 400 MG CAPSULE PO SCH ×2 (09:00→21:55)
[2020-06-16] MEDS: ASPIRIN 325 MG TABLET PO SCH (09:00)
[2020-06-16] MEDS: RIVAROXABAN 10 MG TABLET PO SCH (09:00)
[2020-06-16] MEDS: FLUDROCORTISONE 0.1 MG TABLET PO SCH ×2 (09:00→21:56)
[2020-06-16] MEDS: OXYBUTYNIN XL 10 MG TABLET PO SCH (09:00)
[2020-06-16] MEDS: MAGNESIUM OXIDE 400 MG TABLET PO SCH ×3 (09:01→21:55)
[2020-06-16] MEDS: MULTIVITAMIN (CENTRUM) TABLET PO SCH (09:01)
[2020-06-16] MEDS: MOVANTIK 25 MG PO SCH (09:01)
[2020-06-16] MEDS: CALCIUM (CARBONATE) 600 MG TABLET PO SCH (09:01)
[2020-06-16] MEDS: MENTHOL/ZINC OXIDE OINT 71 GM JAR TOP SCH ×2 (09:01→21:57)
[2020-06-16] MEDS: POLYETHYLENE GLYCOL POWDER 17 GM PACK PO SCH (09:02)
[2020-06-16] MEDS: chlorproMAZINE INJ 12.5 MG in SODIUM CHLORIDE 0.9% 100 ML IV PRN ×2 (09:12→14:14)
[2020-06-16] MEDS: oxyCODONE/ACETAMINOPHEN 5-325 MG TABLET PO PRN ×3 (10:13→22:00)
[2020-06-16 12:55] LABS: % Iron Saturation 9.7 % (18-50); Ferritin 181.2 ng/ml (8-252)
[2020-06-16] MEDS: CLORAZEPATE 3.75 MG TABLET PO PRN ×2 (14:14→21:55)
[2020-06-16] MEDS: ATORVASTATIN 40 MG TABLET PO SCH (21:55)
[2020-06-16] MEDS: MONTELUKAST 10 MG TABLET PO SCH (21:59)
[2020-06-16] MEDS: LEVOTHYROXINE 125 MCG TABLET PO SCH (21:59)
[2020-06-17 07:35] LABS: Basophils % 0.6 % (0.0-0.8); Hematocrit 25.4 VOL% (35.7-47.0); Immature Granulocytes % 0.3 %; Immature Granulocytes Absolute 0.02 #; Lymphocytes # 1.6 10*3/uL (1.4-4.0); Lymphocytes % 21.8 % (21.3-54.2); Mean Corpuscular HGB Conc 31.5 GM/DL (32-36); Mean Corpuscular Volume 101.2 FL (87-102); Mean Platelet Volume 9.9 FL (9.6-12.0); Neutrophils % 61.3 % (38.7-73.9); Platelet Count 167 T/CUMM (130-400); Red Blood Count 2.51 MC/CUMM (3.8-5.5); Red Cell Distribution Width 16.2 % (9.3-17.3); White Blood Count 7.1 T/CUMM (4-12)
[2020-06-17 07:54] LABS: Lymphocytes 29 % (20-55); Platelet Estimate Adequate; Segmented Neutrophils 59 % (50-85); Total Cells Counted 100
[2020-06-17 07:55] LABS: Atypical Lymphocytes Few; Hypochromasia 1+; Microcytosis 1+
[2020-06-17] MEDS ORDERED: LACTATED RINGERS 1,000 ML IV SCH (08:00)
[2020-06-17 08:04] LABS: Calcium 9.1 MG/DL (8.5-10.1); Osmolality,Calculated 285.2 MOS/KG (273-304)
[2020-06-17] MEDS ORDERED: propofoL 200 MG/20 ML VIAL IV ONE (11:02)
[2020-06-17] MEDS ORDERED: LIDOCAINE 2% 5 ML VIAL ONE (11:02)
[2020-06-17] MEDS ORDERED: ETOMIDATE 20 MG/10 ML VIAL IV ONE (11:02)
[2020-06-17] MEDS ORDERED: ONDANSETRON 4 MG/2 ML VIAL ONE (11:04)
[2020-06-17] MEDS ORDERED: PHENYLEPHRINE 1 MG/10 ML SYRINGE IV ONE (11:09)
[2020-06-17] MEDS ORDERED: ePHEDrine 50 MG/ML VIAL ONE (11:10)
[2020-06-17] MEDS: MAGNESIUM OXIDE 400 MG TABLET PO SCH ×2 (11:57→16:15)
[2020-06-17] MEDS: ASPIRIN 325 MG TABLET PO SCH (12:35)
[2020-06-17] MEDS: CALCIUM (CARBONATE) 600 MG TABLET PO SCH (12:36)
[2020-06-17] MEDS: HYDROXYCHLOROQUINE 200 MG TABLET PO SCH (12:36)
[2020-06-17] MEDS: OXYBUTYNIN XL 10 MG TABLET PO SCH (12:36)
[2020-06-17] MEDS: FERROUS SULFATE 325 MG TABLET PO SCH (12:37)
[2020-06-17] MEDS: CARBIDOPA/LEVODOPA 25-100 MG TABLET PO SCH (12:37)
[2020-06-17] MEDS: RIVAROXABAN 10 MG TABLET PO SCH (12:38)
[2020-06-17] MEDS: PANTOPRAZOLE 40 MG TABLET PO SCH (12:38)
[2020-06-17] MEDS: LEFLUNOMIDE 10 MG TABLET PO SCH (12:38)
[2020-06-17] MEDS: FLUDROCORTISONE 0.1 MG TABLET PO SCH (12:38)
[2020-06-17] MEDS: GABAPENTIN 400 MG CAPSULE PO SCH (12:38)
[2020-06-17] MEDS: MULTIVITAMIN (CENTRUM) TABLET PO SCH (12:38)
[2020-06-17] MEDS: FUROSEMIDE 80 MG TABLET PO SCH ×2 (12:39→16:15)
[2020-06-17] MEDS: MENTHOL/ZINC OXIDE OINT 71 GM JAR TOP SCH (12:39)
[2020-06-17] MEDS: POLYETHYLENE GLYCOL POWDER 17 GM PACK PO SCH (12:39)
[2020-06-17] MEDS: MOVANTIK 25 MG PO SCH (12:41)
[2020-06-17] MEDS: oxyCODONE/ACETAMINOPHEN 5-325 MG TABLET PO PRN (12:49)
[2020-06-17] MEDS: CLORAZEPATE 3.75 MG TABLET PO PRN (14:28)
[2020-06-17] MEDS: ALBUTEROL/IPRATROPIUM 3 ML NEB RESP TX PRN (17:25)
[2020-06-17] MEDS ORDERED: FUROSEMIDE 40 MG/4 ML VIAL IM ONE (21:44)
[2020-06-17] MEDS ORDERED: FUROSEMIDE 40 MG/4 ML VIAL IV ONE (21:48)
[2020-06-18] MEDS: FERROUS SULFATE 325 MG TABLET PO SCH (01:58)
[2020-06-18] MEDS: FLUDROCORTISONE 0.1 MG TABLET PO SCH (01:58)
[2020-06-18] MEDS: MAGNESIUM OXIDE 400 MG TABLET PO SCH (01:59)
[2020-06-18] MEDS: LEVOTHYROXINE 125 MCG TABLET PO SCH (01:59)
[2020-06-18] MEDS: HYDROXYCHLOROQUINE 200 MG TABLET PO SCH (01:59)
[2020-06-18] MEDS: MONTELUKAST 10 MG TABLET PO SCH (01:59)
[2020-06-18] MEDS: GABAPENTIN 400 MG CAPSULE PO SCH (01:59)
[2020-06-18] MEDS: PANTOPRAZOLE 40 MG TABLET PO SCH (01:59)
[2020-06-18] MEDS: ATORVASTATIN 40 MG TABLET PO SCH (01:59)
[2020-06-18] MEDS: CARBIDOPA/LEVODOPA 25-100 MG TABLET PO SCH (01:59)
[2020-06-18 05:57] VITALS: BP 114/54
== END 2020-06-17 23:40 | disposition expired | DRG 689 ==
LOC: EDUNIT# → EDBD → N.ED 08:41 → SUATTDRO 12:01 → N.EDINP 12:01 → N.TELEN 13:35
PROVIDERS: ADMIT Internal Medicine; ATTEND Internal Medicine